=== PATIENT | male | born 1945 | race Caucasian/White ===

== ENCOUNTER → 2017-12-25 09:01 | Outpatient (CLI) | payer MEDICARE, OTHER, SELFPAY ==
[2017-12-25 09:43] LABS: White Blood Cell Count 5.6 X10^3/uL (4.5-11.0)
[2017-12-25 09:47] LABS: Mean Corpuscular HGB Conc 34.5 % (30-36); Mean Corpuscular Hemoglobin 30.4 PG (26-34); Mean Corpuscular Volume 88.3 fL (80-100); Red Blood Cell Count 3.62 X10^6/uL (4.5-5.9)
[2017-12-25 09:51] LABS: Platelet Count 1011 X10^3/uL (150-400)
[2017-12-25 09:56] LABS: Neutrophils Absolute Manual 3472 /uL (3000-5900); Platelet Estimate Increased on smear; Total Cells Counted 100
[2017-12-25 09:57] LABS: Morphology Comment Normal Morphology
[2017-12-25 09:58] LABS: Erythrocyte Sedimentation Rate 13 MM/HR (0-15)
[2017-12-25 10:05] LABS: C-Reactive Protein Quant < 0.5 mg/dL (<1.0)
== END ==
PROVIDERS: PCP Family Medicine; Visit Provider Family Medicine
DX: R59.1 Generalized enlarged lymph nodes (principal)
CPT/HCPCS: 36415; 85025; 85651; 86140

== ENCOUNTER → 2017-12-28 13:47 | Outpatient (CLI) | payer MEDICARE, OTHER, SELFPAY ==
[2017-12-28 14:47] LABS: Hematocrit 29.2 % (41-53); Hemoglobin 10.1 g/dL (13.5-17.5); Mean Corpuscular HGB Conc 34.5 % (30-36); Mean Corpuscular Hemoglobin 30.3 PG (26-34); Mean Corpuscular Volume 87.8 fL (80-100); Red Blood Cell Count 3.33 X10^6/uL (4.5-5.9); Red Cell Distribution Width 16.5 % (11.6-14.8); White Blood Cell Count 6.3 X10^3/uL (4.5-11.0)
[2017-12-28 14:51] LABS: Platelet Count 951 X10^3/uL (150-400)
[2017-12-28 15:22] LABS: Add Manual Diff / Slide Review YES
[2017-12-28 15:26] LABS: Anisocytosis 1+; Neutrophils Absolute Manual 3969 /uL (3000-5900); Total Cells Counted 100
[2017-12-28 15:27] LABS: Hypochromasia 1+
[2017-12-28 20:08] LABS: HEMOLYSIS < 15 (0-50); Iron 84 ug/dL (49-181)
[2017-12-28 20:18] LABS: Percent Iron Saturation 28 % (20-50); Total Iron Binding Capacity 295 ug/dL (261-462); Transferrin 219 mg/dL (206-381)
== END ==
PROVIDERS: PCP Family Medicine; Visit Provider Family Medicine
DX: D64.9 Anemia, unspecified (principal); R79.89 Other specified abnormal findings of blood chemistry; D47.3 Essential (hemorrhagic) thrombocythemia
CPT/HCPCS: 36415; 82728; 83540; 83550; 85025

== ENCOUNTER → 2018-01-07 13:15 | Outpatient (CLI) | payer MEDICARE, OTHER, SELFPAY | PROVIDERS: PCP Family Medicine; Visit Provider Family Medicine | DX: I20.8 Other forms of angina pectoris (principal) | CPT/HCPCS: 93016; 93017; 93018 ==

== ENCOUNTER → 2018-01-21 15:17 | Outpatient (CLI) | payer MEDICARE, OTHER, SELFPAY ==
[2018-01-21 16:12] LABS: Reticulocyte Count, Percent 1.2 % (0.87-2.60)
[2018-01-21 16:17] LABS: Add Manual Diff / Slide Review NO; Basophils Percent Auto 0.7 % (0-2); Eosinophils Percent Auto 4.3 % (2-4); Hematocrit 30.7 % (41-53); Hemoglobin 10.6 g/dL (13.5-17.5); Lymphocytes Percent Auto 18.1 % (25-40); Mean Corpuscular HGB Conc 34.5 % (30-36); Mean Corpuscular Hemoglobin 30.3 PG (26-34); Mean Corpuscular Volume 87.7 fL (80-100); Monocytes Percent Auto 7.2 % (3-14); Neutrophils Absolute Auto 5000 /uL (3000-5900); Neutrophils Percent Auto 69.7 % (50-75); Red Blood Cell Count 3.51 X10^6/uL (4.5-5.9); Red Cell Distribution Width 17.1 % (11.6-14.8); White Blood Cell Count 7.2 X10^3/uL (4.5-11.0)
[2018-01-21 16:38] LABS: Platelet Count 928 X10^3/uL (150-400)
[2018-01-21 16:40] LABS: Anisocytosis 2+
[2018-01-21 16:54] LABS: HEMOLYSIS < 15 (0-50); Iron 83 ug/dL (49-181)
[2018-01-21 16:56] LABS: Alanine Aminotransferase 35 IU/L (21-72); Albumin 4.6 g/dL (3.5-5.0); Albumin Globulin Ratio 1.6 (1.0-2.8); Alkaline Phosphatase 48 U/L (38-126); Aspartate Aminotransferase 39 IU/L (17-59); Bilirubin Total 0.4 mg/dL (0.2-1.3); Blood Urea Nitrogen 22 mg/dL (9-20); Calcium 9.3 mg/dL (8.4-10.2); Carbon Dioxide 27 mmol/L (22-32); Chloride 104 mmol/L (98-107); Estimated Glomerular Filt Rate > 60.0 mL/min (>60); Globulin 2.8 g/dL (1.7-4.1); Glucose 129 mg/dL (80-110); HEMOLYSIS < 15 (0-50); Lactate Dehydrogenase 747 U/L (313-618); Potassium 4.1 mmol/L (3.4-5.1); Sodium 142 mmol/L (137-145); Total Protein 7.4 g/dL (6.3-8.2)
[2018-01-21 17:05] LABS: Percent Iron Saturation 27 % (20-50); Total Iron Binding Capacity 308 ug/dL (261-462); Transferrin 230 mg/dL (206-381)
[2018-01-23 15:37] LABS: Free Kappa Light Chain 25.1 mg/L (3.3-19.4); Free Lambda 14.7 mg/L (5.7-26.3)
[2018-01-26 15:42] LABS: Clinical Indication Blood; JAK2 V617F DETECTED (NOT DETECTED)
[2018-01-29 16:22] LABS: Albumin 4.2 g/dL (3.8-4.8); Alpha 1 Globulin 0.2 g/dL (0.2-0.3); Alpha 2 Globulin 0.6 g/dL (0.5-0.9); Beta 1 Globulin 0.4 g/dL (0.4-0.6); Protein, Total 6.7 g/dL (6.1-8.1)
== END ==
PROVIDERS: PCP Family Medicine; Visit Provider Internal Medicine Hematology & Oncology
DX: D47.3 Essential (hemorrhagic) thrombocythemia (principal); D64.9 Anemia, unspecified
CPT/HCPCS: 36415; 80053; 81270; 82728; 82784; 83540; 83550; 83615; 83883; 84155; 84165; 85025; 85045; 86334

== ENCOUNTER → 2018-03-04 09:55 | Outpatient (CLI) | payer MEDICARE, OTHER, SELFPAY ==
[2018-03-04 10:24] LABS: Add Manual Diff / Slide Review NO; Basophils Percent Auto 0.7 % (0-2); Eosinophils Percent Auto 5.5 % (2-4); Hematocrit 31.8 % (41-53); Lymphocytes Percent Auto 17.4 % (25-40); Mean Corpuscular HGB Conc 34.5 % (30-36); Mean Corpuscular Hemoglobin 30.5 PG (26-34); Mean Corpuscular Volume 88.4 fL (80-100); Monocytes Percent Auto 7.5 % (3-14); Neutrophils Absolute Auto 4900 /uL (3000-5900); Neutrophils Percent Auto 68.9 % (50-75); Red Cell Distribution Width 17.8 % (11.6-14.8); White Blood Cell Count 7.2 X10^3/uL (4.5-11.0)
[2018-03-04 10:26] LABS: Alanine Aminotransferase 31 IU/L (21-72); Albumin 4.3 g/dL (3.5-5.0); Albumin Globulin Ratio 1.5 (1.0-2.8); Alkaline Phosphatase 46 U/L (38-126); Aspartate Aminotransferase 35 IU/L (17-59); BUN Creatinine Ratio 20.8 (6-22); Bilirubin Total 0.5 mg/dL (0.2-1.3); Blood Urea Nitrogen 25 mg/dL (9-20); Calcium 8.8 mg/dL (8.4-10.2); Carbon Dioxide 28 mmol/L (22-32); Chloride 107 mmol/L (98-107); Estimated Glomerular Filt Rate 59.9 mL/min (>60); Globulin 2.8 g/dL (1.7-4.1); Glucose 116 mg/dL (80-110); HEMOLYSIS < 15 (0-50); Lactate Dehydrogenase 624 U/L (313-618); Potassium 4.5 mmol/L (3.4-5.1); Sodium 145 mmol/L (137-145); Total Protein 7.1 g/dL (6.3-8.2)
[2018-03-04 11:00] LABS: Platelet Count 1216 X10^3/uL (150-400)
[2018-03-04 11:06] LABS: Anisocytosis 1+; Platelet Estimate Increased on smear
--- NOTE | 2018-03-04 11:27 | PC.NURSE ---
received a critical value on pts platelets of 1216. Pt last seen in the clinic where platelet count was in the 900's and given information on hydrea. Pt was schd for 4 weeks out, but due to the rise in his platelets pt will be seen by Dr Barth today
[2018-03-15 15:23] LABS: Miscellaneous to LabCorp SEE SEPERATE REPORT
== END ==
PROVIDERS: PCP Family Medicine
DX: D47.3 Essential (hemorrhagic) thrombocythemia (principal)
CPT/HCPCS: 36415; 80053; 83615; 85025

== ENCOUNTER → 2018-03-11 09:18 | Outpatient (CLI) | payer MEDICARE, OTHER, SELFPAY ==
[2018-03-11 09:42] LABS: Alanine Aminotransferase 26 IU/L (21-72); Albumin 4.5 g/dL (3.5-5.0); Albumin Globulin Ratio 1.6 (1.0-2.8); Alkaline Phosphatase 47 U/L (38-126); Aspartate Aminotransferase 32 IU/L (17-59); Bilirubin Total 0.4 mg/dL (0.2-1.3); Blood Urea Nitrogen 19 mg/dL (9-20); Calcium 8.9 mg/dL (8.4-10.2); Carbon Dioxide 28 mmol/L (22-32); Chloride 105 mmol/L (98-107); Estimated Glomerular Filt Rate > 60.0 mL/min (>60); Globulin 2.8 g/dL (1.7-4.1); Glucose 107 mg/dL (80-110); HEMOLYSIS < 15 (0-50); Potassium 4.7 mmol/L (3.4-5.1); Sodium 143 mmol/L (137-145); Total Protein 7.3 g/dL (6.3-8.2)
[2018-03-11 09:43] LABS: Hematocrit 31.7 % (41-53); Mean Corpuscular HGB Conc 34.8 % (30-36); Mean Corpuscular Hemoglobin 30.7 PG (26-34); Mean Corpuscular Volume 88.2 fL (80-100); Red Blood Cell Count 3.59 X10^6/uL (4.5-5.9); Red Cell Distribution Width 17.2 % (11.6-14.8); White Blood Cell Count 6.1 X10^3/uL (4.5-11.0)
[2018-03-11 09:45] LABS: Add Manual Diff / Slide Review SLIDE REVIEW
[2018-03-11 10:18] LABS: Anisocytosis 1+; Hypochromasia 1+; Platelet Estimate Increased on smear; Poikilocytosis 1+
[2018-03-11 10:20] LABS: Platelet Count 1115 X10^3/uL (150-400)
--- NOTE | 2018-03-11 11:01 | PC.NURSE ---
Addendum entered by Vince Gonzalez R.N. 03/15/18 08:59: Per Dr Barth, No changes to hydrea now Original Note: Pt here for weekly labs. Platelet count is being watched closely as he showed a consistent increase leading to an appt with Dr Barth. Pt started on Hydrea with todays platelet count down to 1,115. Results to MD for any further orders.
--- NOTE | 2018-03-11 16:38 | PC.NURSE ---
AT 1200 PATIENT BP ELEVATED TO 190/100. PATIENT HAD HAD PARKINSON TREMORS DURING BP MEASURE, OTHERWISE HE STATES NO SYMPTOMS, NO HEADACHE OR VISION PROBLEMS. 5 MINUTES POST BP AT 169/90. INFUSION LEFT AT 100 FOR ANOTHER 15 MINUTES, BP THEN 160/85 AND INFUSION INCREASED PER PROTOCOL.
== END ==
PROVIDERS: PCP Family Medicine; Visit Provider Internal Medicine Hematology & Oncology
DX: D47.3 Essential (hemorrhagic) thrombocythemia (principal)
CPT/HCPCS: 36415; 80053; 85025

== ENCOUNTER → 2018-03-18 09:20 | Outpatient (CLI) | payer MEDICARE, OTHER, SELFPAY ==
[2018-03-18 09:46] LABS: Add Manual Diff / Slide Review NO; Eosinophils Percent Auto 2.4 % (2-4); Hematocrit 32.4 % (41-53); Hemoglobin 11.1 g/dL (13.5-17.5); Lymphocytes Percent Auto 19.5 % (25-40); Mean Corpuscular HGB Conc 34.3 % (30-36); Mean Corpuscular Hemoglobin 30.2 PG (26-34); Mean Corpuscular Volume 88.1 fL (80-100); Monocytes Percent Auto 8.9 % (3-14); Neutrophils Absolute Auto 3600 /uL (3000-5900); Neutrophils Percent Auto 68.2 % (50-75); Platelet Count 861 X10^3/uL (150-400); Red Blood Cell Count 3.68 X10^6/uL (4.5-5.9); Red Cell Distribution Width 17.9 % (11.6-14.8); White Blood Cell Count 5.3 X10^3/uL (4.5-11.0)
[2018-03-18 10:00] LABS: Alanine Aminotransferase 40 IU/L (21-72); Albumin 4.6 g/dL (3.5-5.0); Albumin Globulin Ratio 1.5 (1.0-2.8); Alkaline Phosphatase 46 U/L (38-126); Aspartate Aminotransferase 40 IU/L (17-59); BUN Creatinine Ratio 22.7 (6-22); Bilirubin Total 0.6 mg/dL (0.2-1.3); Blood Urea Nitrogen 25 mg/dL (9-20); Calcium 9.3 mg/dL (8.4-10.2); Carbon Dioxide 30 mmol/L (22-32); Chloride 104 mmol/L (98-107); Estimated Glomerular Filt Rate > 60.0 mL/min (>60); Glucose 86 mg/dL (80-110); HEMOLYSIS < 15 (0-50); Sodium 146 mmol/L (137-145); Total Protein 7.6 g/dL (6.3-8.2)
== END ==
PROVIDERS: PCP Family Medicine; Visit Provider Internal Medicine Hematology & Oncology
DX: D47.3 Essential (hemorrhagic) thrombocythemia (principal); D64.9 Anemia, unspecified
CPT/HCPCS: 36415; 80053; 85025

== ENCOUNTER → 2018-06-10 09:49 | Outpatient (CLI) | payer MEDICARE, OTHER, SELFPAY ==
[2018-06-10 10:00] LABS: Add Manual Diff / Slide Review NO; Basophils Percent Auto 0.8 % (0-2); Eosinophils Percent Auto 1.2 % (2-4); Hematocrit 35.1 % (41-53); Hemoglobin 11.8 g/dL (13.5-17.5); Lymphocytes Percent Auto 20.4 % (25-40); Mean Corpuscular HGB Conc 33.6 % (30-36); Mean Corpuscular Hemoglobin 35.2 PG (26-34); Mean Corpuscular Volume 104.9 fL (80-100); Monocytes Percent Auto 6.7 % (3-14); Neutrophils Absolute Auto 3100 /uL (1500-7000); Neutrophils Percent Auto 70.9 % (50-75); Platelet Count 457 X10^3/uL (150-400); Red Blood Cell Count 3.35 X10^6/uL (4.5-5.9); White Blood Cell Count 4.3 X10^3/uL (4.5-11.0)
[2018-06-10 10:24] LABS: Anisocytosis 3+; Poikilocytosis 1+
== END ==
PROVIDERS: PCP Family Medicine; Visit Provider Nurse Practitioner Gerontology
DX: D47.3 Essential (hemorrhagic) thrombocythemia (principal); D64.9 Anemia, unspecified
CPT/HCPCS: 36415; 85025

== ENCOUNTER → 2018-09-10 10:10 | Outpatient (CLI) | payer MEDICARE, OTHER, SELFPAY ==
[2018-09-10 10:49] LABS: Add Manual Diff / Slide Review NO; Basophils Absolute Auto 0 /uL (0-100); Basophils Percent Auto 0.4 % (0-2); Eosinophils Absolute Auto 300 /uL (0-450); Eosinophils Percent Auto 4.3 % (2-4); Hematocrit 34.2 % (41-53); Hemoglobin 11.5 g/dL (13.5-17.5); Lymphocytes Absolute Auto 1000 /uL (1100-4500); Lymphocytes Percent Auto 13.4 % (25-40); Mean Corpuscular HGB Conc 33.7 % (30-36); Mean Corpuscular Hemoglobin 39.6 PG (26-34); Mean Corpuscular Volume 117.6 fL (80-100); Monocytes Absolute Auto 400 /uL (0-900); Monocytes Percent Auto 5.3 % (3-14); Neutrophils Absolute Auto 5800 /uL (1500-7000); Neutrophils Percent Auto 76.6 % (50-75); Platelet Count 501 X10^3/uL (150-400); Red Blood Cell Count 2.91 X10^6/uL (4.5-5.9); Red Cell Distribution Width 16.2 % (11.6-14.8); White Blood Cell Count 7.5 X10^3/uL (4.5-11.0)
[2018-09-10 11:21] LABS: Macrocytosis 2+
[2018-09-10 12:40] LABS: Alanine Aminotransferase 31 IU/L (21-72); Albumin 4.4 g/dL (3.5-5.0); Albumin Globulin Ratio 1.4 (1.0-2.8); Alkaline Phosphatase 56 U/L (38-126); Aspartate Aminotransferase 36 IU/L (17-59); BUN Creatinine Ratio 19.1 (6-22); Bilirubin Total 0.4 mg/dL (0.2-1.3); Blood Urea Nitrogen 21 mg/dL (9-20); Carbon Dioxide 25 mmol/L (22-32); Chloride 104 mmol/L (98-107); Estimated Glomerular Filt Rate > 60.0 mL/min (>60); Globulin 3.1 g/dL (1.7-4.1); Glucose 97 mg/dL (80-110); HEMOLYSIS < 15 (0-50); Potassium 4.7 mmol/L (3.4-5.1); Sodium 139 mmol/L (137-145); Total Protein 7.5 g/dL (6.3-8.2)
== END ==
PROVIDERS: PCP Family Medicine; Visit Provider Internal Medicine Hematology & Oncology
DX: I10 Essential (primary) hypertension (principal)
CPT/HCPCS: 36415; 80053; 85025

== ENCOUNTER → 2018-09-14 06:39 | Outpatient (CLI) | payer MEDICARE, OTHER, SELFPAY ==
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
== END ==
PROVIDERS: PCP Family Medicine; Visit Provider Nurse Practitioner
DX: M79.604 Pain in right leg (principal); S76.811A Strain of other specified muscles, fascia and tendons at thigh level, right thigh, initial encounter; V89.2XXA Person injured in unspecified motor-vehicle accident, traffic, initial encounter
CPT/HCPCS: 73718

== ENCOUNTER → 2019-06-08 09:31 | Outpatient (CLI) | payer MEDICARE, OTHER, SELFPAY ==
[2019-06-08 09:56] LABS: Hematocrit 23.2 % (41-53); Hemoglobin 7.7 g/dL (13.5-17.5); Mean Corpuscular HGB Conc 33.2 % (30-36); Mean Corpuscular Hemoglobin 36.8 PG (26-34); Mean Corpuscular Volume 110.8 fL (80-100); Platelet Count 173 X10^3/uL (150-400); Red Blood Cell Count 2.09 X10^6/uL (4.5-5.9); Red Cell Distribution Width 16.6 % (11.6-14.8); White Blood Cell Count 5.7 X10^3/uL (4.5-11.0)
[2019-06-08 09:57] LABS: Add Manual Diff / Slide Review YES
[2019-06-08 10:10] LABS: Alanine Aminotransferase 19 IU/L (<50); Albumin 4.4 g/dL (3.5-5.0); Albumin Globulin Ratio 1.5 (1.0-2.8); Alkaline Phosphatase 57 U/L (38-126); Aspartate Aminotransferase 29 IU/L (17-59); BUN Creatinine Ratio 16.7 (6-22); Bilirubin Total 0.5 mg/dL (0.2-1.3); Blood Urea Nitrogen 20 mg/dL (9-20); Calcium 8.7 mg/dL (8.4-10.2); Carbon Dioxide 26 mmol/L (22-32); Chloride 107 mmol/L (98-107); Estimated Glomerular Filt Rate 59.5 mL/min (>60); Globulin 2.9 g/dL (1.7-4.1); Glucose 116 mg/dL (80-110); HEMOLYSIS < 15 (0-50); Potassium 4.5 mmol/L (3.4-5.1); Sodium 143 mmol/L (137-145); Total Protein 7.3 g/dL (6.3-8.2)
[2019-06-08 10:59] LABS: Neutrophils Absolute Manual 2508 /uL (3000-5900); Nucleated Red Blood Cells 1 #/Diff; Total Cells Counted 100
[2019-06-08 11:00] LABS: Hypochromasia 2+; Macrocytosis 2+; Polychromasia 1+; Tear Drop Cells 1+
== END ==
PROVIDERS: PCP Family Medicine; Visit Provider Internal Medicine Hematology & Oncology
DX: D47.3 Essential (hemorrhagic) thrombocythemia (principal)
CPT/HCPCS: 36415; 80053; 85025

== ENCOUNTER → 2019-07-11 08:54 | Outpatient (CLI) | payer MEDICARE, OTHER, SELFPAY ==
[2019-07-11 10:09] LABS: Prothrombin Time 23.5 SECONDS (10.1-12.7)
[2019-07-11 10:14] LABS: Hematocrit 23.4 % (41-53); Hemoglobin 7.8 g/dL (13.5-17.5); Mean Corpuscular HGB Conc 33.2 % (30-36); Mean Corpuscular Hemoglobin 33.6 PG (26-34); Mean Corpuscular Volume 101.3 fL (80-100); Platelet Count 249 X10^3/uL (150-400); Red Blood Cell Count 2.31 X10^6/uL (4.5-5.9); Red Cell Distribution Width 22.6 % (11.6-14.8); White Blood Cell Count 22.3 X10^3/uL (4.5-11.0)
[2019-07-11 10:15] LABS: Add Manual Diff / Slide Review YES
[2019-07-11 10:17] LABS: Alanine Aminotransferase 26 IU/L (<50); Albumin 4.9 g/dL (3.5-5.0); Albumin Globulin Ratio 1.4 (1.0-2.8); Alkaline Phosphatase 59 U/L (38-126); Aspartate Aminotransferase 33 IU/L (17-59); BUN Creatinine Ratio 18.5 (6-22); Bilirubin Total 0.5 mg/dL (0.2-1.3); Blood Urea Nitrogen 24 mg/dL (9-20); Calcium 9.1 mg/dL (8.4-10.2); Carbon Dioxide 26 mmol/L (22-32); Chloride 106 mmol/L (98-107); Estimated Glomerular Filt Rate 54.3 mL/min (>60); Globulin 3.6 g/dL (1.7-4.1); Glucose 92 mg/dL (80-110); HEMOLYSIS < 15 (0-50); Potassium 4.5 mmol/L (3.4-5.1); Sodium 141 mmol/L (137-145); Total Protein 8.5 g/dL (6.3-8.2)
[2019-07-11 10:33] LABS: HEMOLYSIS < 15 (0-50); Iron 171 ug/dL (49-181)
[2019-07-11 10:42] LABS: Anisocytosis 2+; Neutrophils Absolute Manual 11373 /uL (3000-5900); Nucleated Red Blood Cells 1 #/Diff; Poikilocytosis 1+; Total Cells Counted 100
[2019-07-11 10:43] LABS: Percent Iron Saturation 53 % (20-50); Polychromasia 1+; Total Iron Binding Capacity 321 ug/dL (261-462); Transferrin 232 mg/dL (206-381)
[2019-07-11 11:21] LABS: Folate 11.1 ng/mL (2.76-20.0); Vitamin B12 872 pg/mL (239-931)
== END ==
PROVIDERS: Internal Medicine Hematology & Oncology; PCP Family Medicine; Visit Provider Family Medicine
DX: D47.3 Essential (hemorrhagic) thrombocythemia (principal); I26.99 Other pulmonary embolism without acute cor pulmonale; Z79.01 Long term (current) use of anticoagulants
CPT/HCPCS: 36415; 80053; 82607; 82728; 82746; 83540; 83550; 85025; 85610

== ENCOUNTER → 2019-07-18 09:30 | Outpatient (CLI) | payer MEDICARE, OTHER, SELFPAY ==
[2019-07-18 10:00] LABS: Hematocrit 21.8 % (41-53); Hemoglobin 7.1 g/dL (13.5-17.5); Mean Corpuscular HGB Conc 32.5 % (30-36); Mean Corpuscular Hemoglobin 32.9 PG (26-34); Mean Corpuscular Volume 101.2 fL (80-100); Platelet Count 201 X10^3/uL (150-400); Red Blood Cell Count 2.15 X10^6/uL (4.5-5.9); Red Cell Distribution Width 22.6 % (11.6-14.8); White Blood Cell Count 16.1 X10^3/uL (4.5-11.0)
[2019-07-18 10:10] LABS: Alanine Aminotransferase 28 IU/L (<50); Albumin 4.5 g/dL (3.5-5.0); Albumin Globulin Ratio 1.3 (1.0-2.8); Alkaline Phosphatase 58 U/L (38-126); Aspartate Aminotransferase 34 IU/L (17-59); BUN Creatinine Ratio 16.2 (6-22); Bilirubin Total 0.6 mg/dL (0.2-1.3); Blood Urea Nitrogen 21 mg/dL (9-20); Carbon Dioxide 24 mmol/L (22-32); Chloride 107 mmol/L (98-107); Estimated Glomerular Filt Rate 54.3 mL/min (>60); Globulin 3.6 g/dL (1.7-4.1); Glucose 103 mg/dL (80-110); HEMOLYSIS < 15 (0-50); Potassium 4.4 mmol/L (3.4-5.1); Sodium 141 mmol/L (137-145); Total Protein 8.1 g/dL (6.3-8.2)
[2019-07-18 10:17] LABS: Add Manual Diff / Slide Review YES
[2019-07-18 10:45] LABS: Neutrophils Absolute Manual 9821 /uL (3000-5900); Nucleated Red Blood Cells 1 #/Diff; Total Cells Counted 100
[2019-07-18 10:46] LABS: Anisocytosis 2+
== END ==
PROVIDERS: Internal Medicine Hematology & Oncology; PCP Family Medicine; Visit Provider Family Medicine
DX: D47.3 Essential (hemorrhagic) thrombocythemia (principal)
CPT/HCPCS: 36415; 80053; 85025

== ENCOUNTER → 2019-08-25 10:23 | Outpatient (CLI) | payer MEDICARE, OTHER, SELFPAY ==
--- NOTE | 2019-08-25 10:26 | DI.US.S_ITS ---
PROCEDURE: US ABDOMEN LIMITED INDICATIONS: MYELOFIBROSIS.EVALUATE FOR HEPATOSPLENOMEGALY TECHNIQUE: Real-time focused scanning was performed of the abdomen, with image documentation. COMPARISON: [facility], CT, CT ABDOMEN PELVIS WITH CONTRAST, 02/09/2018, 11:14. FINDINGS: Liver is grossly normal in size measures approximately 14.0 cm in length. 2 hepatic cysts are noted within the left lobe measuring 1.0 x 0.7 x 0.8 cm, and 0.6 x 1.0 x 1.1 cm. Status post cholecystectomy No intra-or extrahepatic bile duct dilatation. Pancreas is sonographically unremarkable. There is splenomegaly. The spleen measures 13.7 x 7.3 cm. IMPRESSION: Splenomegaly. Normal size of the liver Dictated by: Dima Dinh M.D. on 08/25/2019 at 14:24 Approved by: Dima Dinh M.D. on 08/25/2019 at 14:27
== END ==
PROVIDERS: PCP Family Medicine; Referring Provider Internal Medicine Hematology & Oncology; Visit Provider Internal Medicine Hematology & Oncology
DX: D47.3 Essential (hemorrhagic) thrombocythemia; D75.81 Myelofibrosis; R16.1 Splenomegaly, not elsewhere classified
CPT/HCPCS: 76705

== ENCOUNTER → 2019-08-29 09:27 | Outpatient (CLI) | payer MEDICARE, OTHER, SELFPAY ==
[2019-08-29 09:52] LABS: Hematocrit 23.5 % (41-53); Hemoglobin 7.7 g/dL (13.5-17.5); Mean Corpuscular HGB Conc 32.6 % (30-36); Mean Corpuscular Hemoglobin 31.6 PG (26-34); Mean Corpuscular Volume 96.9 fL (80-100); Platelet Count 141 X10^3/uL (150-400); Red Blood Cell Count 2.42 X10^6/uL (4.5-5.9); Red Cell Distribution Width 21.9 % (11.6-14.8); White Blood Cell Count 28.4 X10^3/uL (4.5-11.0)
[2019-08-29 09:54] LABS: Add Manual Diff / Slide Review YES
[2019-08-29 10:31] LABS: Anisocytosis 2+; Neutrophils Absolute Manual 15052 /uL (3000-5900); Tear Drop Cells 1+; Total Cells Counted 100
== END ==
PROVIDERS: PCP Family Medicine; Referring Provider Internal Medicine Hematology & Oncology; Visit Provider Internal Medicine Hematology & Oncology
DX: D47.3 Essential (hemorrhagic) thrombocythemia (principal); D64.9 Anemia, unspecified; D75.81 Myelofibrosis
CPT/HCPCS: 36415; 85025

== ENCOUNTER → 2019-10-27 09:00 | Oncology outpatient (ONC) | payer MEDICARE, OTHER, SELFPAY ==
[2018-01-20 14:37] VITALS: BP 141/77; PULSE 66; RESP 16; TEMP 37; O2SAT 99
--- NOTE | 2018-01-20 14:56 | P.CONONC_ITS ---
History of Present Illness - Data of Consult Primary Care Provider: Mamta Gould MD - Consult Narrative Narrative: Eddie Chávez is a 72 year old male CC: Esteban Solomon MD HEMATOLOGY/ONCOLOGY CONSULTATION NOTE DATE OF SERVICE: JANUARY 20, 2018 PATIENT NAME: EDDIE CHÁVEZ DATE OF : 1945 REFERRING PHYSICIAN: DELONTE GOULD MD REASON FOR CONSULTATION: Anemia and thrombocytosis. HISTORY OF PRESENT ILLNESS: This is a 72-year-old gentleman who is referred by Dr. Gould for evaluation and management of anemia and thrombocytosis. He presents today accompanied by his , Jerica. Born in [place], [place] and has lived most of his life in [facility]. Recent clinic visit on December 25, 2017 for swollen lymph nodes in his groin. Examination at that time reports small, bilateral inguinal lymph nodes ranging approximately 0.5 cm. He was sent for lab work that day which shows WBC 5600, ANC 3472, hemoglobin 11.0, hematocrit 32.0, MCV 88.3, platelet count 1,011,000. Sedimentation rate 13, CRP less than 0.5. BUN 21, creatinine 1.10, calcium 9.2, glucose 88, B12 717, sodium 144, potassium 5.3, chloride 104, CO2 29. Recently saw Dr. Grace in Orthopedics to evaluate burning, neuropathic pain in his feet. He had some imaging as well as nerve conduction studies though I do not have the records today. He was referred to Dr. Jones and on January 19, 2018 underwent colonoscopy with findings of 4 reportedly benign polyps. Also EGD. I do not have the reports available to review but very tells me the findings were generally okay. He was also referred to Cardiology for possible coronary angiography. He denies any evident bleeding, no melena or hematochezia. He took oral iron for about 3 days, stopping at his colonoscopy. He has no previous history of cancer and has not received chemotherapy or radiation treatment in the past. No history of anemia or other hematologic disorder. He denies recent fever, night sweats or unexplained weight loss. He has felt warmer at night over the past month or two, nonspecific. No significant rash, joint swelling, bruising, bleeding, headaches or new neurologic symptoms. He has noted the burning discomfort in his feet for about 4-5 months. No reported history of diabetes. Previously consumed beer but none since about age 34. Also former smoker but quit at age 30. He denies any recent abdominal discomfort, bloating, distention or early satiety. No bone pain. No cough or dyspnea. Home Medications and Allergies Home Medications Medication Instructions Recorded Confirmed Type pediatric [id number]-[id number] 1 tab PO DAILY 01/20/18 01/20/18 History [Multi-Vitamins with Iron] Allergies Allergy/AdvReac Type Severity Reaction Status Date / Time No Known Drug Allergies Allergy Verified 01/20/18 14:39 Medical History - Medical, Surgical, Family History Medical History: Medical History (Last Updated 12/18/17 @ 16:03 by Michell Mueller) Osteoarthritis Seborrheic dermatitis CTS (carpal tunnel syndrome) Surgical History: Surgical History (Last Updated 12/18/17 @ 16:05 by Michell Mueller) Anesthesia History of carpal tunnel release Onset Date: ~1989 History of cholecystectomy Onset Date: ~2014 History of partial knee replacement Onset Date: ~2001 Status post rotator cuff repair Family History: Family History Father Lung cancer Mother Congestive heart failure Heart disease - Social History Smoking Status: Former smoker Review of Systems - Patient Self-Reported Symptoms SR ears, nose, mouth, throat issues: Ears ringing, Difficulty swallowing SR Cardiovascular issues: Chest pain, discomfort, tightness SR Genitourinary issues: Change in stream SR Hematologic issues: Swollen lymph nodes Constitutional: able to conduct usual activities, normal sleep, no weight loss, no poor state of general health Eyes: no change in vision, no double vision Ears, nose, mouth, throat: no headaches, no lightheadedness, no epistaxis, no gingival bleeding, no sore throat Cardiovascular: no chest pain, no palpitations, no syncope, no dyspnea on exertion, no orthopnea, no edema, no cyanosis, no heart murmur Respiratory: no pain with respirations, no shortness of breath, no wheezing, no exercise intolerance, no cough, no sputum production, no hemoptysis, no respiratory infections, no night sweats Gastrointestinal: no change in appetite, no dysphagia, no indigestion, no abdominal pain, no nausea, no hematemesis, no jaundice, no abnormal stools Genitourinary: no urgency, no frequency, no dysuria, no hematuria Musculoskeletal: no pain, no swelling, no limited ROM, no weakness, no cramps Integumentary: no rash, no bleeding or bruising, no itching, no abnormal hair loss, no nails brittleness Neurological: no seizures, no tremor, no paresthesias, no memory loss, no motor difficulty Psychiatric: no attentional problems, no mood disturbance, no depression Hematologic/Lymphatic: anemia, enlarged lymph nodes Exam Vital signs: Last Vital Signs Temp 98.6 F 01/20/18 14:37 Pulse 66 01/20/18 14:37 Resp 16 01/20/18 14:37 BP 141/77 H 01/20/18 14:37 Pulse Ox 99 01/20/18 14:37 - Constitutional positive no acute distress, positive thin, positive cooperative - Routine HEENT Exam Head: Present: normocephalic, atraumatic. Absent: cushingoid faces, facial swelling Eye: Present: EOMI, PERRL. Absent: conjunctival icterus, scleral injection, periorbital ecchymosis, periorbital swelling ENT: Present: mucous membranes moist, oropharynx clear - Routine Neck Exam Present: supple. Absent: JVD, lymphadenopathy - Routine Chest/Breast/Axilla Exam Axillae: Absent: lymphadenopathy, tenderness - Routine Respiratory Exam Present: Clear to auscultation bilaterally. Absent: accessory muscle use, rales , rhonchi, wheezes - Routine Cardiovascular Exam Present: RRR, S1, S2. Absent: murmur, S3 - Routine Abdominal Exam Present: soft. Absent: normoactive bowel sounds, tenderness, distended, organomegaly Palpation/Percussion: Absent: hepatomegaly, splenomegaly - Routine Extremities Exam Present: pulses intact. Absent: cyanosis, clubbing, edema, calf tenderness, joint swelling - Routine Back/Spine Exam Back/Spine: Present: full ROM. Absent: paraspinal tenderness, vertebral tenderness - Routine Skin Exam Present: intact. Absent: cyanosis, erythema, petechiae, jaundice, rash, ecchymosis - Routine Neurological Exam Present: alert, oriented X3, moving all extremities, normal speech. Absent: altered mental status - Routine Psychiatric Exam Present: normal affect, normal thought process, cooperative, good judgment Assessment and Plan - Time Spent with Patient IMPRESSION: 1. Thrombocytosis. Differential includes primary versus secondary thrombocythemia. 2. Anemia, normocytic. 3. Peripheral neuropathy. 4. Presumed atherosclerotic cardiovascular disease. 5. Former smoker, quit at age 30 with less than 20 pack year history. 6. Osteoarthritis. I reviewed his recent lab results and the clinical questions with him and his for today's visit. Reviewed his questions and concerns. At this time it is unclear whether this represents primary versus secondary thrombocytosis. Coincident anemia raises question of a secondary cause though not definitive. Thrombocytosis may be seen in the setting of iron deficiency however he does not show microcytosis and recent MCV was normal at 88. We do not have any previous CBC results for comparison and cannot therefore determine the chronicity of the current findings. He does have small, shotty inguinal nodes, right greater than left though not currently pathologically enlarged and likely unrelated to the issue at hand. No additional palpable lymphadenopathy, splenomegaly or other findings on examination today. There is evidence of vascular disease with hair loss on his lower extremities and other changes consistent with arterial insufficiency. Etiology for his neuropathy may include peripheral vascular disease, previous alcohol consumption or other. Recent B12 was normal. I reviewed the findings and potential concerns regarding primary thrombocythemia and other myeloproliferative disorders. Discussed the increased risk for thromboembolic complications including stroke. I would recommend initial lab work and we will see him back to review these results. Further diagnostic workup including imaging and possible bone marrow aspirate and biopsy pending results. He voices understanding and agreement with the plan. He will follow up with other providers as scheduled. PLAN: 1. CBC, retic count, peripheral smear evaluation, CMP, LDH, iron/TIBC, ferritin , SPEP with immunofixation and serum free light chains. 2. JAK2 mutation assay. 3. Return appointment 1 week to review results. 4. Follow up with other providers as planned. 5. Consider bone marrow aspirate and biopsy if indicated. 6. Diagnostic imaging pending above results. DICTATED BY ESTEBAN SOLOMON MD MEDICAL ONCOLOGY AND HEMATOLOGY
[2018-01-27 09:38] VITALS: BP 141/77; PULSE 60; RESP 15; TEMP 36.6; O2SAT 100
--- NOTE | 2018-01-27 10:15 | P.PNONC_ITS ---
Assessment and Plan - Time Spent with Patient IMPRESSION: 1. Thrombocytosis, JAK2 mutation positive. 2. Anemia, normocytic. 3. Peripheral neuropathy. 4. Former smoker, 20 pack year history and quit at age 30. 5. Presumed ASCVD. 6. Osteoarthritis. I reviewed the lab results with him and his at today's visit. Results from January 21, 2018 showed platelet count 928,000, WBC 7200, hemoglobin 10.6, hematocrit 30.7, MCV 87.7, ANC 5000. Retic count 1.2%, creatinine 1.0, LDH 747 , iron 83, TIBC 308, saturation 27%, transferrin 230. Serum free light chains kappa 25.1, lambda of 14.7 with ratio 1.70. JAK2 V617F mutation positive. SPEP with immunofixation pending. I reviewed the results with him and his . Will need to check BCR/ABL, though no splenomegaly on examination or other specific findings beyond those noted. I reviewed the indications for treatment and would recommend he start daily aspirin. Based on his age >60 years and the presence of JAK2 mutation he would fall into the high risk group even without a personal history of thromboembolus. I reviewed the risk for stroke or other blood clot and the indications for cytoreductive therapy with hydroxyurea. Based on these findings, I would recommend he start hydroxyurea at 500 mg daily. Given his anemia would consider starting at every other day or for the 1st month and check counts to see how he tolerates with further adjustment based on counts. I provided him printed information on hydroxyurea today and he will read this and call back next week. We will schedule him with a new provider in 1 month with labs prior to the visit. I encouraged him to call with any questions or new concerns. PLAN: 1. Daily aspirin 81 mg. 2. Information in teaching for hydroxyurea. He will call back when he reaches a decision regarding treatment. 3. Monitor for new symptoms and call back as needed. 4. PCR for BCR/ABL on peripheral blood. 5. Return appointment here in 4 weeks. 6. CBC, CMP, LDH prior to the visit. DICTATED BY COLEMAN SOLOMON MD MEDICAL ONCOLOGY AND HEMATOLOGY PN -Subjective Interval history: IDENTIFICATION: This is a 72-year-old gentleman seen in consultation for thrombocytosis and anemia who returns in follow-up to review lab results. INTERVAL HISTORY: He returns today with his to review initial lab results. He is feeling fine and has no new symptoms to report. He denies any vasomotor symptoms including fever, night sweats, hot flashes, flushing. No discoloration of the hands or feet. Appetite and energy level stable. No bleeding, bruising, abdominal discomfort or early satiety. No symptoms to suggest TIA or stroke. - Patient Self-Reported Symptoms SR ears, nose, mouth, throat issues: Swollen glands SR Cardiovascular issues: Chest pain, discomfort, tightness SR Genitourinary issues: Change in stream SR Hematologic issues: Swollen lymph nodes Home Medications and Allergies Home Medications Medication Instructions Recorded Confirmed Type pediatric nswunwho-odpy-[id number] 1 tab PO DAILY 01/20/18 01/20/18 History [Multi-Vitamins with Iron] Allergies Allergy/AdvReac Type Severity Reaction Status Date / Time No Known Drug Allergies Allergy Verified 01/20/18 14:39 Exam Vital signs: Last Vital Signs Temp 97.8 F 01/27/18 09:38 Pulse 60 01/27/18 09:38 Resp 15 01/27/18 09:38 BP 141/77 H 01/27/18 09:38 Pulse Ox 100 01/27/18 09:38
--- NOTE | 2018-03-01 13:12 | ONC.SCHED ---
CODE CORRECT BCR/ABL PASSES WITH [id number] FOR CODES [id number] NO LCD EDITS
[2018-03-04 16:06] VITALS: BP 126/67; PULSE 62; RESP 16; TEMP 36.4; O2SAT 96
--- NOTE | 2018-03-04 17:35 | P.PNONC_ITS ---
PN -Subjective Interval history: IDENTIFICATION: The patient came here today accompanied by his for an scheduled follow-up because of an elevated platelet counts of more than a million. Patient is currently taking aspirin. During his previous visit with Dr. Ortega, that will be talked with him about the use of hydroxyurea. However patient has not decided yet at the moment. He is not sure about the benefit and risk of using the hydroxyurea. His is also asking if there is any other options for treating her essential thrombocytosis. Patient denies any headache double vision or blurred vision. Patient denies any shortness breath or chest pain. No abdominal pain or fullness. ONCOLOGICAL HISTORY Emilee Francisco is a 72-year-old gentleman who is referred by Dr. Elkins for evaluation and management of anemia and thrombocytosis. On December 25, 2017, he was seen for swollen lymph nodes in his groin. Examination at that time reports small, bilateral inguinal lymph nodes ranging approximately 0.5 cm. His routine lab showed WBC 5600, ANC 3472, hemoglobin 11.0, hematocrit 32.0, MCV 88.3, platelet count 1,011,000. Sedimentation rate 13, CRP less than 0.5. BUN 21, creatinine 1.10, calcium 9.2, glucose 88, B12 717, sodium 144, potassium 5.3, chloride 104, CO2 29. He was also being seen at the time by Dr. Grace in Orthopedics to evaluate burning, neuropathic pain in his feet. He was referred to Dr. Jones and on January 19, 2018 underwent colonoscopy with findings of 4 reportedly benign polyps. He was seen by Dr. Esteban Ortega on January 21, 2018. Lab results from that day showed that the white cell count 7.2, hemoglobin 10.6, hematocrit 30.7, platelets 324185, ANC 5.0, retic count 1.2%, creatinine level 1.0, LDH 747, iron 83, TIBC 308, saturation 27%, transferrin 230. Apollo 2 V617F mutation was positive. - Patient Self-Reported Symptoms SR ears, nose, mouth, throat issues: Swollen glands SR Cardiovascular issues: Chest pain, discomfort, tightness SR Genitourinary issues: Change in stream SR Hematologic issues: Swollen lymph nodes - Additional ROS All systems PM: reviewed and no additional remarkable complaints except as stated Home Medications and Allergies Home Medications Medication Instructions Recorded Confirmed Type pediatric ndplwldn-cajf-dsm 1 tab PO DAILY 01/20/18 01/20/18 History [Multi-Vitamins with Iron] aspirin 81 mg PO DAILY 03/04/18 03/04/18 History hydroxyurea [Hydrea] 500 mg PO DAILY #30 cap 03/04/18 Rx Allergies Allergy/AdvReac Type Severity Reaction Status Date / Time No Known Drug Allergies Allergy Verified 01/20/18 14:39 Exam Vital signs: Last Vital Signs Temp 97.6 F 03/04/18 16:06 Pulse 62 03/04/18 16:06 Resp 16 03/04/18 16:06 BP 126/67 03/04/18 16:06 Pulse Ox 96 03/04/18 16:06 - Constitutional positive no acute distress, positive average body habitus, positive cooperative - Routine HEENT Exam Head: Present: normocephalic, atraumatic Eye: Present: EOMI, PERRL, normal accommodation. Absent: conjunctival icterus ENT: Present: mucous membranes moist - Routine Neck Exam Present: supple. Absent: lymphadenopathy, thyromegaly, trachea midline - Routine Respiratory Exam Present: Clear to auscultation bilaterally. Absent: accessory muscle use, rales , respiratory distress, rhonchi, stridor, wheezes, crackles - Routine Cardiovascular Exam Present: RRR, S1, S2. Absent: murmur, gallop, rubs - Routine Abdominal Exam Present: soft, normoactive bowel sounds. Absent: tenderness, distended, organomegaly, mass, hernia - Routine Extremities Exam Absent: edema - Routine Neurological Exam Present: alert, oriented X3, CN II-XII intact, normal reflexes, normal tone, normal speech. 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 Current visit: Yes Status: Chronic (3) Peripheral neuropathy Onset Date: 2018 Problem details: tingling of feet and hands. maybe related to concurrent diagnosis of ET. Current visit: Yes Status: Chronic - Time Spent with Patient Today I spent considerable amount of time discussing with patient and patient's about the new diagnosis of essential thrombocytosis. Patient at present has a significantly elevated blood platelet counts. It is currently 1 million. I talked with the patient that with significantly elevated platelet counts, there is an increased risk of bleeding as well as an increased risk of blood. In my opinion that the risk of bleeding probably are with risk of blood clot. I would recommend that we temporarily hold the aspirin. Patient voiced understanding. Next I talked with the patient that for diagnosis of essential thrombocytosis, she I would recommend a bone marrow aspiration and biopsy to evaluate if there is any concurrent other medical hematological problems and if there is any significant myelofibrosis. I talked with them that bone marrow aspiration biopsy will provide us with more information regarding the new diagnosis of essential thrombocytosis and also will provide prognostic information. Given the high level of blood platelets, in my opinion that pharmacological intervention is indicated. I talked with the patient about several options including hydroxyurea, anagrelide and the new medication ruxolitinib. I talked with them that that hydroxyurea has the longest track record of safety and efficacy compared to all the other 2 options. Hydroxyurea is well tolerated and rarely we have seen some complications including possibly fatigue, bone marrow suppression, and skin rashes and also formation. There is controversy regarding the risk of secondary malignancy. Anagrelide is not used as often as hydroxyurea. Patient also tolerate it not as well as the hydroxyurea. And the abnormal reactions includes headache, palpitations, diarrhea, abdominal pain, dizziness etc as well as congestive heart failure or arrhythmia. Ruxolitinib is a new medication, it is approved for patients with essential thrombocytosis and PV. However my personal experience with ruxolitinib has been less favorable compared to hydroxyurea in that it is not well tolerated, and patient developed adverse reactions including bone marrow suppression, infection, skin reactions, and fatigue etc. Patient eventually agreed to start the treatment with Hydroxyurea. PLAN: 1. Bone marrow aspiration and biopsy in am 2. Start Hydroxyurea 500 mg daily after BMA/Bx 3. Hold aspirin temporarily 4. CBC and CMP weekly after start of Hydroxyurea 5. RTC MD visit in 3 weeks, CBC/CMP with the visit 6. Instructed him to call all any concerns or questions.
--- NOTE | 2018-03-05 | PATH_ITS ---
[facility] Accession Number: [id number] . 01 Material submitted: . PART A: BONE MARROW BIOPSY PART B: BONE MARROW BIOPSY PART C: BONE MARROW ASPIRATE . 01 Clinical history: . RIGHT HIP. Per Dr. Connie Barth's 03/04/2018 clinical note, this patient has a history of anemia, thrombocytosis, and recent diagnosis of essential thrombocythemia, JAK2 V617F positive. . 01 Diagnosis: BONE MARROW, CORE BIOPSY, ASPIRATE, AND CLOT SECTIONS: 1. Hypercellular marrow for age (65% cellular) with marked megakaryocytic hyperplasia, megakaryocyte atypia, and mild myeloid hyperplasia, without expanded blasts (see Comments) 2. Mild marrow reticulin fibrosis by special stain (MF 1+ out of 3) . PERIPHERAL BLOOD: 1. Marked thrombocytosis 2. Mild normocytic normochromic anemia 3. Mild absolute eosinophilia and basophilia . FLOW CYTOMETRIC ANALYSIS ([id number]): Bone marrow, aspirate: 1. No abnormal blast or myeloid cell population identified (see Flow Comments) 2. No abnormal B-cell or T-cell population identified . 03/10/2018 . 01 Comment: The morphologic and phenotypic findings in this marrow, in correlation with the reported positive JAK2 V617F mutation, are consistent with marrow involvement by a myeloproliferative neoplasm. The collective morphologic features of megakaryocyte hyperplasia; megakaryocyte atypia including several large, hyperlobate forms; atypical megakaryocyte clusters; and only mild marrow reticulin fibrosis, in the setting of marked thrombocytosis without concurrent erythrocytosis, are most compatible with essential thrombocythemia (ET). Correlation with the patient's complete clinical history, laboratory and radiologic studies, and continued follow-up of the patient's hematologic status is recommended. . Routine cytogenetic karyotyping is also being performed on the marrow aspirate, and will be reported separately in [id number] when complete. Of note, there is also a separate [facility] specimen accession, collected on 03/04/[address] Cook, for BCR-ABL1 quantitative RT-PCR to be performed on this patient, which will be reported in [id number] when complete. . FLOW CYTOMETRY COMMENTS: . There is no immunophenotypic evidence of a myeloid stem cell neoplasm or non-Hodgkin lymphoma. However, a low-grade myelodysplastic syndrome or chronic-phase myeloproliferative neoplasm cannot be entirely excluded by flow cytometry. Correlation of these findings with the bone marrow morphology, routine cytogenetic karyotyping, and other clinical and laboratory findings is recommended. Note that complete Hematopathology evaluation of the concurrently submitted marrow specimen will be reported separately in [id number]. . Flow cytometric analysis after lysis of the erythroid elements indicates that the viable leukocytes include 4.4% lymphocytes, 3.8% monocytes, 88% granulocytes, and 0.8% CD34+ myeloid blasts. The lymphocytes include 3.2% B-cells, 87% T-cells, and 5% NK-cells. The few mature B-cells have a normal kappa:lambda ratio of 1.4. The T-cells have a normal CD4:CD8 ratio of 1.9. The granulocytes exhibit normal expression of CD10, CD11b, CD13, CD16 and CD15; the monocytes exhibit normal expression of CD13, CD14, CD33 and CD64; and the CD34+ myeloid blasts have no significant immunophenotypic abnormalities. . . 01 Electronically signed: . Mara Garcia MD, Pathologist NPI- [id number] . 01 Gross description: . Received three formalin-filled containers, each labeled with the patient's name. No sources are on the containers: . A. In a container arbitrarily designated A, the specimen consists of a 0.3 cm in diameter by 1.8 cm in length portion of core, entirely submitted in cassette A and will be placed in Decal for softening. B. In a container arbitrarily designated B, the specimen consists of approximately a 0.75 cc aggregate of clotted blood, which is filtered, wrapped, and entirely submitted in cassette B. C. In a container arbitrarily designated C, the specimen consists of approximately a 12 cc aggregate of blood, which is filtered, wrapped, and entirely submitted in cassettes C1-C4. ([id number]) /FRR . 01 Microscopic: . CORE BIOPSY AND CLOT SECTIONS: . H/E-stained sections of the bone marrow core biopsy (block A1) reveal a well-sampled and intact core of trabecular bone and a hypercellular marrow for age, estimated at 65% cellularity. The marrow exhibits trilineage hematopoiesis with marked megakaryocytic hyperplasia and mild myeloid hyperplasia. Megakaryocytes form both atypical tight clusters and loose clusters, comprised of approximately 4-7 forms in the tight clusters and up to 20-25 forms in loose clusters. A distinct subset of enlarged megakaryocytes is identified, and atypical megakaryocytes with hyperlobate nuclei are also seen. A few megakaryocytes may also exhibit hyperchromatic nuclei, although partial crush artifact cannot be entirely excluded. There is no evidence of an expanded blast or immature cell population. One small, vague lymphoid collection may be present in the H/E levels of the core biopsy. H/E-stained sections of the clot in block B1 reveal abundant blood clot with a few embedded cellular marrow particles reflective of the core biopsy. H/E-stained sections of the clot in blocks C1-C4 reveal blood and fibrin only, with no cellular marrow particles. No distinct lymphoid aggregates are seen in the clot sections. . ASPIRATE SMEARS AND TOUCH PREPARATION: . The aspirate smears are aparticulate, partially clotted, and hemodilute, with scattered large platelet clusters. A touch preparation of the core biopsy is also hemodilute. Megakaryocytes are exceedingly rare to absent on the aspirate smears and touch preparation. The erythroid precursors present include a few dysplastic forms with nuclear budding and/or irregularity, but the dysplastic forms comprise far fewer than 10% of the total erythroid precursors seen. The myeloid precursors exhibit appropriate nuclear segmentation and cytoplasmic granularity. Both the erythroid and myeloid precursors lack significant megaloblastoid features. Lymphocytes are present in high normal to mildly elevated numbers, likely reflecting the hemodilution of the smears. Plasmacytic cells are present in normal numbers, and have no significant cytologic atypia. There is no obvious increase in histiocytes or mast cells. One hemophagocytic histiocyte/macrophage is identified on one of the aspirate smears. A differential count of 500 marrow hematopoietic cells from the aspirate smears reveals 0.2% blasts, 62.6% myeloid precursors, 19.6% erythroid precursors, 17% lymphocytes, and 0.6% plasma cells. . SPECIAL STAINS: . A reticulin stain performed on the core biopsy (A1) reveals mild reticulin fibrosis (WHO fibrosis grade 1 of 3). . The aspirate smear upon which an iron stain was performed is aparticulate; however, occasional sideroblasts and rare ring sideroblasts are identified among the normoblasts present. Two (2) ring sideroblasts are counted among 50 normoblasts (4% ring sideroblasts). An iron stain performed on the clot section B1 reveals an adequate to mildly elevated amount of stainable marrow storage iron. No prominent population of ring sideroblasts is evident on the B1 clot section iron stain. . IMMUNOHISTOCHEMISTRY*: . Select immunohistochemical studies were performed on the core biopsy (A1), with appropriate positive and negative controls, to help enumerate the cell lineages. CD34+ blasts comprise about 1% of the marrow cells. CD15+ myelomonocytic precursors and CD71+ erythroid precursors comprise about 75-80% and 15% of the marrow cells, respectively. An immunostain for vWF highlights the megakaryocytes. . PERIPHERAL BLOOD: . A Rivers-stained peripheral blood smear reveals the leukocytes to be normal in number, and a differential count of 300 cells reveals 62.7% neutrophils, 21.3% lymphocytes, 6.7% monocytes, 7% eosinophils, and 2.3% basophils. The circulating neutrophils have appropriate nuclear segmentation and cytoplasmic granularity. Per the CBC indices, the erythrocytes are mildly decreased in number and volume. There is minimal polychromasia and only mild erythrocyte anisopoikilocytosis, with a few elliptocytes and red cell fragments seen. Platelets are markedly elevated in number and variable in cell size. The platelets are generally well-granulated. . * Technical note: These tests and their performance characteristics have been determined by [facility]. They have not been cleared or approved by the U.S. Food and Drug Administration. The FDA has determined that such clearance or approval is not necessary. These tests are used for clinical purposes, and should not be regarded as investigational or for research. . . 01 Pathologist provided ICD-10: D47.3 . 01 CPT . 798652, 847258, 214384, 753608, 087357, 530682, 928899, 218838, 015758, J67011, J53401 Specimen Comment: A duplicate report has been generated due to demographic updates. Performed at: [address] [facility], [place], [place] [id number] MD Jose Alberto Humphrey MD Phone: [phone]
[2018-03-05 08:47] LABS: Add Manual Diff / Slide Review NO; Hematocrit 32.1 % (41-53); Hemoglobin 11.1 g/dL (13.5-17.5); Lymphocytes Percent Auto 19.8 % (25-40); Mean Corpuscular HGB Conc 34.5 % (30-36); Mean Corpuscular Hemoglobin 30.3 PG (26-34); Mean Corpuscular Volume 87.8 fL (80-100); Monocytes Percent Auto 7.8 % (3-14); Neutrophils Absolute Auto 4700 /uL (3000-5900); Neutrophils Percent Auto 65.4 % (50-75); Red Blood Cell Count 3.65 X10^6/uL (4.5-5.9); Red Cell Distribution Width 17.8 % (11.6-14.8); White Blood Cell Count 7.2 X10^3/uL (4.5-11.0)
[2018-03-05 09:10] LABS: Platelet Count 1264 X10^3/uL (150-400)
--- NOTE | 2018-03-05 17:40 | ONC.PROCEDUR ---
Date of procedure: 03/05/18 Diagnosis: Essential thrombocytosis Onc Bone Marrow: bone marrow biopsy and aspiration Procedure: Informed consent was signed by the patient after the indication and potential side effects were explained to the patient. Patient was instructed to lie on his left side. Right posterior iliac crest was sterilized and and draped per standard procedures. Anesthesia was obtained by injection of 1% lidocaine. A bone marrow aspiration needle was inserted without any difficulty. A total of 20 cc of bone marrow aspirate was able to be obtained and passed out to the table for preparation of slides. Thereafter I inserted the biopsy needle and obtained as above about 3 cm long. Patient tolerated the procedure very well. And no immediate complications.
[2018-03-25 14:55] LABS: Add Manual Diff / Slide Review NO; Basophils Percent Auto 0.8 % (0-2); Eosinophils Percent Auto 3.9 % (2-4); Hematocrit 31.5 % (41-53); Hemoglobin 10.9 g/dL (13.5-17.5); Lymphocytes Percent Auto 15.4 % (25-40); Mean Corpuscular HGB Conc 34.5 % (30-36); Mean Corpuscular Hemoglobin 30.5 PG (26-34); Mean Corpuscular Volume 88.4 fL (80-100); Monocytes Percent Auto 7.7 % (3-14); Neutrophils Absolute Auto 4200 /uL (3000-5900); Neutrophils Percent Auto 72.2 % (50-75); Platelet Count 836 X10^3/uL (150-400); Red Blood Cell Count 3.56 X10^6/uL (4.5-5.9); Red Cell Distribution Width 19.2 % (11.6-14.8); White Blood Cell Count 5.8 X10^3/uL (4.5-11.0)
[2018-03-25 15:02] LABS: Alanine Aminotransferase 38 IU/L (21-72); Albumin 4.6 g/dL (3.5-5.0); Albumin Globulin Ratio 1.6 (1.0-2.8); Alkaline Phosphatase 51 U/L (38-126); Aspartate Aminotransferase 36 IU/L (17-59); BUN Creatinine Ratio 19.1 (6-22); Bilirubin Total 0.5 mg/dL (0.2-1.3); Blood Urea Nitrogen 21 mg/dL (9-20); Calcium 8.8 mg/dL (8.4-10.2); Carbon Dioxide 27 mmol/L (22-32); Chloride 106 mmol/L (98-107); Estimated Glomerular Filt Rate > 60.0 mL/min (>60); Globulin 2.8 g/dL (1.7-4.1); Glucose 100 mg/dL (80-110); HEMOLYSIS < 15 (0-50); Potassium 4.3 mmol/L (3.4-5.1); Sodium 145 mmol/L (137-145); Total Protein 7.4 g/dL (6.3-8.2)
[2018-03-25 15:28] VITALS: BP 141/71; PULSE 67; RESP 18; TEMP 36.7; O2SAT 96
[2018-03-25 15:46] LABS: Anisocytosis 1+; Platelet Estimate Increased on smear; Polychromasia 1+
[2018-03-25 15:47] LABS: Platelet Morphology Comment PLATELETS:
--- NOTE | 2018-03-25 16:16 | P.PNONC_ITS ---
PN -Subjective Interval history: IDENTIFICATION: 72-year-old gentleman with essential thrombocytosis. INTERIM EVENTS The patient underwent bone marrow aspiration and biopsy on March 05, 2018. There after patient started hydroxyurea 500 mg once a day. Patient has tolerated therapy well. He reports no nausea no vomiting. No diarrhea no constipation. No fatigue. Patient presents here today for review of the bone marrow aspiration biopsy results. Patient is planning to go on a hunting trip. The hematopathology of the bone marrow aspiration and biopsy showed hypercellular marrow for age (65% cellular) with marked megakaryocytic hyperplasia, megakaryocytic atypia, and mild myeloid hyperplasia without expanded blasts. There is mild marrow reticulin fibrosis by special stain) mf 1 + out of 3). Flow cytometry showed no abnormal blast or myeloid population identified and no abnormal B-cell or T-cell population identified. Cytogenetic studies showed that the karyotype is normal 46, xy. ONCOLOGICAL HISTORY Emilee Francisco is a 72-year-old gentleman who is referred by Dr. Elkins for evaluation and management of anemia and thrombocytosis. On December 25, 2017, he was seen for swollen lymph nodes in his groin. Examination at that time reports small, bilateral inguinal lymph nodes ranging approximately 0.5 cm. His routine lab showed WBC 5600, ANC 3472, hemoglobin 11.0, hematocrit 32.0, MCV 88.3, platelet count 1,011,000. Sedimentation rate 13, CRP less than 0.5. BUN 21, creatinine 1.10, calcium 9.2, glucose 88, B12 717, sodium 144, potassium 5.3, chloride 104, CO2 29. He was also being seen at the time by Dr. Grace in Orthopedics to evaluate burning, neuropathic pain in his feet. He was referred to Dr. Jones and on January 19, 2018 underwent colonoscopy with findings of 4 reportedly benign polyps. He was seen by Dr. Esteban Ortega on January 21, 2018. Lab results from that day showed that the white cell count 7.2, hemoglobin 10.6, hematocrit 30.7, platelets 351202, ANC 5.0, retic count 1.2%, creatinine level 1.0, LDH 747, iron 83, TIBC 308, saturation 27%, transferrin 230. Apollo 2 V617F mutation was positive. - Patient Self-Reported Symptoms SR ears, nose, mouth, throat issues: Swollen glands SR Cardiovascular issues: Chest pain, discomfort, tightness SR Genitourinary issues: Change in stream SR Hematologic issues: Swollen lymph nodes - Additional ROS All systems PM: reviewed and no additional remarkable complaints except as stated Home Medications and Allergies Home Medications Medication Instructions Recorded Confirmed Type pediatric jhnixekh-sdbw-sdm 1 tab PO DAILY 01/20/18 01/20/18 History [Multi-Vitamins with Iron] aspirin 81 mg PO DAILY 03/04/18 03/04/18 History hydroxyurea [Hydrea] 500 mg PO DAILY #30 cap 03/04/18 Rx Allergies Allergy/AdvReac Type Severity Reaction Status Date / Time No Known Drug Allergies Allergy Verified 01/20/18 14:39 Exam Vital signs: Last Vital Signs Temp 98.1 F 03/25/18 15:28 Pulse 67 03/25/18 15:28 Resp 18 03/25/18 15:28 BP 141/71 H 03/25/18 15:28 Pulse Ox 96 03/25/18 15:28 ECOG 1 Narrative: Constitutional: Well developed, well nourished, not in any acute respiratory distress, average body habitus, well groomed, pleasant and cooperative. HEENT: Normocephalic atraumatic. Extraocular muscle movement intact. Pupils are round, equal and reactive to light and accommodations. Anicteric sclera. No hearing difficulty; Oral mucus membrane moist and without ulcers. Neck: Supple, symmetrical, and tracheal midline; No palpable thyromegaly and no palpable lymph nodes. Respiratory: No use of accessory muscles. Clear to auscultation, and no wheezes or rales or rubs. Cardiovascular: Regular rate and rhythm, S1 and S2 normal, no murmurs gallops or rubs. No JVD. No pitting edema of lower extremities. Abdomen: Soft, nontender, non-distended, bowel sounds normal, no palpable organomegaly, no hernia, no palpable masses. Lower extremities: No palpable pedal edema. Lymphatic: no palpable lymph nodes in the neck, axillae, or groins. Musculoskeletal: normal gait and station, no clubbing, no cyanosis, no pitting edema. Skin: no rashes, no ulcers, no petechiae Neurological: Awake and alert and oriented x3. CN II-XII grossly intact. No focal motor or sensory deficit. Psychiatric: Good judgment, good insight, normal affect, normal thought process , cooperative, no depression, no anxiety. Results - Labs Laboratory Last Values WBC 5.8 X10^3/uL (4.5-11.0) 03/25/18 14:41 RBC 3.56 X10^6/uL (4.5-5.9) L 03/25/18 14:41 Hgb 10.9 g/dL (13.5-17.5) L 03/25/18 14:41 Hct 31.5 % (41-53) L 03/25/18 14:41 MCV 88.4 fL (80-100) 03/25/18 14:41 MCH 30.5 PG (26-34) 03/25/18 14:41 MCHC 34.5 % (30-36) 03/25/18 14:41 RDW 19.2 % (11.6-14.8) H 03/25/18 14:41 Plt Count 836 X10^3/uL (150-400) H 03/25/18 14:41 Neut % (Auto) 72.2 % (50-75) 03/25/18 14:41 Lymph % (Auto) 15.4 % (25-40) L 03/25/18 14:41 Louisa % (Auto) 7.7 % (3-14) 03/25/18 14:41 Eos % (Auto) 3.9 % (2-4) 03/25/18 14:41 Baso % (Auto) 0.8 % (0-2) 03/25/18 14:41 Neut # (Auto) 4200 /uL (5831-4132) 03/25/18 14:41 Platelet Estimate Increased on smear 03/25/18 14:41 Plt Morphology Comment Platelets: 03/25/18 14:41 RBC Morphology See below 03/25/18 14:41 Polychromasia 1+ H 03/25/18 14:41 Anisocytosis 1+ H 03/25/18 14:41 Sodium 145 mmol/L (137-145) 03/25/18 14:41 Potassium 4.3 mmol/L (3.4-5.1) 03/25/18 14:41 Chloride 106 mmol/L (98-107) 03/25/18 14:41 Carbon Dioxide 27 mmol/L (22-32) 03/25/18 14:41 BUN 21 mg/dL (9-20) H 03/25/18 14:41 Creatinine 1.10 mg/dL (0.66-1.25) 03/25/18 14:41 Estimated GFR > 60.0 mL/min (>60) 03/25/18 14:41 BUN/Creatinine Ratio 19.1 (6-22) 03/25/18 14:41 Glucose 100 mg/dL (80-110) 03/25/18 14:41 Calcium 8.8 mg/dL (8.4-10.2) 03/25/18 14:41 Total Bilirubin 0.5 mg/dL (0.2-1.3) 03/25/18 14:41 AST 36 IU/L (17-59) 03/25/18 14:41 ALT 38 IU/L (21-72) 03/25/18 14:41 Alkaline Phosphatase 51 U/L (38-126) 03/25/18 14:41 Total Protein 7.4 g/dL (6.3-8.2) 03/25/18 14:41 Albumin 4.6 g/dL (3.5-5.0) 03/25/18 14:41 Globulin 2.8 g/dL (1.7-4.1) 03/25/18 14:41 Albumin/Globulin Ratio 1.6 (1.0-2.8) 03/25/18 14:41 Assessment and Plan (1) Essential thrombocytosis Onset Date: 2017 Problem details: JACK2 V617F mutation positive Current visit: Yes Status: Chronic Since March 05, 2018, patient started hydroxyurea 500 mg once a day. Patient tolerated very well. Patient's platelet counts have dropped from more than a million to current 800 and +. The bone marrow aspiration and biopsy did not show any significant myelofibrosis or other abnormalities. And I will continue hydroxyurea for the time being. I talked with the patient that my goal is trying to get the platelet counts to as normal as possible without any other cytopenias especially leukopenia or anemia. I talked with the patient that hydroxyurea can cause pancytopenia. Patient voiced understanding. I will have patient come back in 1 week recheck CBC CMP. I will review the results. And I will see the patient in about 3 weeks on April 12, 2018. We will repeat the CBC CMP. (2) Anemia Onset Date: 2017 Problem details: normocytic, likely related to concurrent diagnosis of ET. Current visit: Yes Status: Chronic Stable. Continue current active surveillance. (3) Peripheral neuropathy Onset Date: 2018 Problem details: tingling of feet and hands. maybe related to concurrent diagnosis of ET. Current visit: Yes Status: Chronic Stable. Observe for now.
[2018-04-01 08:39] LABS: Add Manual Diff / Slide Review NO; Basophils Percent Auto 0.9 % (0-2); Eosinophils Percent Auto 4.5 % (2-4); Hematocrit 31.6 % (41-53); Hemoglobin 10.8 g/dL (13.5-17.5); Lymphocytes Percent Auto 15.4 % (25-40); Mean Corpuscular HGB Conc 34.2 % (30-36); Mean Corpuscular Hemoglobin 30.9 PG (26-34); Mean Corpuscular Volume 90.5 fL (80-100); Monocytes Percent Auto 8.6 % (3-14); Neutrophils Absolute Auto 3800 /uL (3000-5900); Neutrophils Percent Auto 70.6 % (50-75); Platelet Count 781 X10^3/uL (150-400); Red Blood Cell Count 3.49 X10^6/uL (4.5-5.9); White Blood Cell Count 5.3 X10^3/uL (4.5-11.0)
[2018-04-01 08:49] LABS: Alanine Aminotransferase 34 IU/L (21-72); Albumin 4.4 g/dL (3.5-5.0); Albumin Globulin Ratio 1.6 (1.0-2.8); Alkaline Phosphatase 50 U/L (38-126); Aspartate Aminotransferase 37 IU/L (17-59); Bilirubin Total 0.4 mg/dL (0.2-1.3); Blood Urea Nitrogen 26 mg/dL (9-20); Carbon Dioxide 26 mmol/L (22-32); Chloride 104 mmol/L (98-107); Estimated Glomerular Filt Rate 54.6 mL/min (>60); Globulin 2.8 g/dL (1.7-4.1); Glucose 126 mg/dL (80-110); HEMOLYSIS < 15 (0-50); Potassium 4.4 mmol/L (3.4-5.1); Sodium 143 mmol/L (137-145); Total Protein 7.2 g/dL (6.3-8.2)
[2018-04-01 10:08] LABS: Anisocytosis 1+
[2018-04-12 10:54] LABS: Hematocrit 32.9 % (41-53); Hemoglobin 11.2 g/dL (13.5-17.5); Lymphocytes Percent Auto 18.2 % (25-40); Mean Corpuscular Hemoglobin 31.3 PG (26-34); Mean Corpuscular Volume 92.1 fL (80-100); Monocytes Percent Auto 11.6 % (3-14); Neutrophils Absolute Auto 3300 /uL (3000-5900); Neutrophils Percent Auto 66.2 % (50-75); Red Blood Cell Count 3.57 X10^6/uL (4.5-5.9); Red Cell Distribution Width 21.8 % (11.6-14.8); White Blood Cell Count 4.9 X10^3/uL (4.5-11.0)
[2018-04-12 10:59] LABS: Add Manual Diff / Slide Review SLIDE REVIEW; Platelet Count 838 X10^3/uL (150-400)
[2018-04-12 11:10] LABS: Alanine Aminotransferase 38 IU/L (21-72); Albumin 4.6 g/dL (3.5-5.0); Albumin Globulin Ratio 1.6 (1.0-2.8); Alkaline Phosphatase 49 U/L (38-126); Aspartate Aminotransferase 43 IU/L (17-59); BUN Creatinine Ratio 17.9 (6-22); Bilirubin Total 0.6 mg/dL (0.2-1.3); Blood Urea Nitrogen 25 mg/dL (9-20); Calcium 9.3 mg/dL (8.4-10.2); Carbon Dioxide 27 mmol/L (22-32); Chloride 106 mmol/L (98-107); Estimated Glomerular Filt Rate 50.1 mL/min (>60); Globulin 2.8 g/dL (1.7-4.1); Glucose 86 mg/dL (80-110); HEMOLYSIS < 15 (0-50); Potassium 4.7 mmol/L (3.4-5.1); Sodium 145 mmol/L (137-145); Total Protein 7.4 g/dL (6.3-8.2)
[2018-04-12 11:22] VITALS: BP 135/72; PULSE 51; RESP 18; TEMP 36.4; O2SAT 100
--- NOTE | 2018-04-12 11:24 | P.PNONC_ITS ---
PN -Subjective Interval history: IDENTIFICATION: 72-year-old gentleman with essential thrombocytosis now on treatment with hydrea. INTERIM EVENTS Patient went on a hunting trip since last visit. Patient said he had to walk for a long long distance and he has been doing well. He denies any fever or chills. No nausea no vomiting. He denies any skin rashes or bleeding events. He denies any abdominal pain diarrhea or constipation. Patient is currently taking hydroxyurea 500 mg once a day. ONCOLOGICAL HISTORY Emilee Francisco is a 72-year-old gentleman who is referred by Dr. Elkins for evaluation and management of anemia and thrombocytosis. On December 25, 2017, he was seen for swollen lymph nodes in his groin. Examination at that time reports small, bilateral inguinal lymph nodes ranging approximately 0.5 cm. His routine lab showed WBC 5600, ANC 3472, hemoglobin 11.0, hematocrit 32.0, MCV 88.3, platelet count 1,011,000. Sedimentation rate 13, CRP less than 0.5. BUN 21, creatinine 1.10, calcium 9.2, glucose 88, B12 717, sodium 144, potassium 5.3, chloride 104, CO2 29. He was also being seen at the time by Dr. Graec in Orthopedics to evaluate burning, neuropathic pain in his feet. He was referred to Dr. Jones and on January 19, 2018 underwent colonoscopy with findings of 4 reportedly benign polyps. He was seen by Dr. Esteban Ortega on January 21, 2018. Lab results from that day showed that the white cell count 7.2, hemoglobin 10.6, hematocrit 30.7, platelets [id number], ANC 5.0, retic count 1.2%, creatinine level 1.0, LDH 747, iron 83, TIBC 308, saturation 27%, transferrin 230. 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 The patient underwent bone marrow aspiration and biopsy on March 05, 2018. The hematopathology showed hypercellular marrow for age (65% cellular) with marked megakaryocytic hyperplasia, megakaryocytic atypia, and mild myeloid hyperplasia without expanded blasts. There is mild marrow reticulin fibrosis by special stain) MF 1+ out of 3). Flow cytometry showed no abnormal blast or myeloid population identified and no abnormal B-cell or T-cell population identified. Cytogenetic studies showed that the karyotype is normal 46, XY. The patient started hydroxyurea 500 mg once a day on Mar 05, 2018 - Patient Self-Reported Symptoms SR ears, nose, mouth, throat issues: Swollen glands SR Genitourinary issues: Change in stream SR Hematologic issues: Swollen lymph nodes - Additional ROS All systems PM: reviewed and no additional remarkable complaints except as stated Home Medications and Allergies Home Medications Medication Instructions Recorded Confirmed Type hydroxyurea [Hydrea] 500 mg PO DAILY #30 cap 03/04/18 Rx Adult One Daily Multivitamin 1 tab PO DAILY 04/12/18 04/12/18 History Allergies Allergy/AdvReac Type Severity Reaction Status Date / Time No Known Drug Allergies Allergy Verified 01/20/18 14:39 Exam Vital signs: Temp 97.5 F L 04/12/18 11:22 Pulse 51 L 04/12/18 11: Resp 18 04/12/18 11:22 BP 135/72 04/12/18 11:22 Pulse Ox 100 04/12/18 11:22 ECOG 1 Narrative: Constitutional: Well developed, well nourished, not in any acute respiratory distress, average body habitus, well groomed, pleasant and cooperative. HEENT: Normocephalic atraumatic. Extraocular muscle movement intact. Pupils are round, equal and reactive to light and accommodations. Anicteric sclera. No hearing difficulty; Oral mucus membrane moist and without ulcers. Neck: Supple, symmetrical, and tracheal midline; No palpable thyromegaly and no palpable lymph nodes. Respiratory: No use of accessory muscles. Clear to auscultation, and no wheezes or rales or rubs. Cardiovascular: Regular rate and rhythm, S1 and S2 normal, no murmurs gallops or rubs. No JVD. No pitting edema of lower extremities. Abdomen: Soft, nontender, non-distended, bowel sounds normal, no palpable organomegaly, no hernia, no palpable masses. Lower extremities: No palpable pedal edema. Lymphatic: no palpable lymph nodes in the neck, axillae, or groins. Musculoskeletal: normal gait and station, no clubbing, no cyanosis, no pitting edema. Skin: no rashes, no ulcers, no petechiae Neurological: Awake and alert and oriented x3. CN II-XII grossly intact. No focal motor or sensory deficit. Psychiatric: Good judgment, good insight, normal affect, normal thought process , cooperative, no depression, no anxiety. Results - Labs WBC 4.9 X10^3/uL (4.5-11.0) 04/12/18 10:40 RBC 3.57 X10^6/uL (4.5-5.9) L 04/12/18 10:40 Hgb 11.2 g/dL (13.5-17.5) L 04/12/18 10:40 Hct 32.9 % (41-53) L 04/12/18 10:40 MCV 92.1 fL (80-100) 04/12/18 10:40 MCH 31.3 PG (26-34) 04/12/18 10:40 MCHC 34.0 % (30-36) 04/12/18 10:40 RDW 21.8 % (11.6-14.8) H 04/12/18 10:40 Plt Count 838 X10^3/uL (150-400) H 04/12/18 10:40 Neut % (Auto) 66.2 % (50-75) 04/12/18 10:40 Lymph % (Auto) 18.2 % (25-40) L 04/12/18 10:40 [place] % (Auto) 11.6 % (3-14) 04/12/18 10:40 Eos % (Auto) 3.0 % (2-4) 04/12/18 10:40 Baso % (Auto) 1.0 % (0-2) 04/12/18 10:40 Neut # (Auto) 3300 /uL (2547-7163) 04/12/18 10:40 Platelet Estimate 04/01/18 08:22 Plt Morphology Comment Platelets: 03/25/18 14:41 RBC Morphology Not Reportable 04/01/18 08:22 Polychromasia 1+ H 03/25/18 14:41 Anisocytosis 1+ H 04/01/18 08:22 Sodium 145 mmol/L (137-145) 04/12/18 10:40 Potassium 4.7 mmol/L (3.4-5.1) 04/12/18 10:40 Chloride 106 mmol/L (98-107) 04/12/18 10:40 Carbon Dioxide 27 mmol/L (22-32) 04/12/18 10:40 BUN 25 mg/dL (9-20) H 04/12/18 10:40 Creatinine 1.40 mg/dL (0.66-1.25) H 04/12/18 10:40 Estimated GFR 50.1 mL/min (>60) L 04/12/18 10:40 BUN/Creatinine Ratio 17.9 (6-22) 04/12/18 10:40 Glucose 86 mg/dL (80-110) 04/12/18 10:40 Calcium 9.3 mg/dL (8.4-10.2) 04/12/18 10:40 Total Bilirubin 0.6 mg/dL (0.2-1.3) 04/12/18 10:40 AST 43 IU/L (17-59) 04/12/18 10:40 ALT 38 IU/L (21-72) 04/12/18 10:40 Alkaline Phosphatase 49 U/L (38-126) 04/12/18 10:40 Total Protein 7.4 g/dL (6.3-8.2) 04/12/18 10:40 Albumin 4.6 g/dL (3.5-5.0) 04/12/18 10:40 Globulin 2.8 g/dL (1.7-4.1) 04/12/18 10:40 Albumin/Globulin Ratio 1.6 (1.0-2.8) 04/12/18 10:40 Assessment and Plan (1) Essential thrombocytosis Onset Date: 2017 Problem details: JACK2 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 However the platelet counts are still elevated at seems to be trending up. Clinically PD not have any bleeding events. I talked with the patient that I will recommend increase the dosage of hydroxyurea to 500 mg twice daily. And I will monitor the blood counts every week. I will see the patient in 2 weeks to further evaluate about the dosage of hydroxyurea. (2) Anemia Onset Date: 2017 Problem details: normocytic, likely related to concurrent diagnosis of ET. Stable. Continue current active surveillance. (3) Peripheral neuropathy Onset Date: 2017 Problem details: tingling of feet and hands. maybe related to concurrent diagnosis of ET. Stable. Observe for now.
[2018-04-12 11:46] LABS: Platelet Estimate Increased on smear
[2018-04-12 11:47] LABS: Anisocytosis 2+; Polychromasia 1+
[2018-04-19 08:48] LABS: Basophils Percent Auto 0.7 % (0-2); Eosinophils Percent Auto 2.6 % (2-4); Hematocrit 32.3 % (41-53); Hemoglobin 11.3 g/dL (13.5-17.5); Mean Corpuscular Hemoglobin 32.2 PG (26-34); Mean Corpuscular Volume 91.9 fL (80-100); Neutrophils Absolute Auto 2700 /uL (3000-5900); Neutrophils Percent Auto 73.7 % (50-75); Platelet Count 736 X10^3/uL (150-400); Red Blood Cell Count 3.51 X10^6/uL (4.5-5.9); Red Cell Distribution Width 21.3 % (11.6-14.8); White Blood Cell Count 3.7 X10^3/uL (4.5-11.0)
[2018-04-19 08:49] LABS: Add Manual Diff / Slide Review SLIDE REVIEW
[2018-04-19 09:23] LABS: Anisocytosis 2+; Platelet Estimate Increased on smear
--- NOTE | 2018-04-21 13:14 | PC.NURSE ---
Pt called stating he did not have enough Hydrea left to cover the new dosage you wanted. After reviewing your notes for this pt dated 04/12 I read you did increase his dosage from 500mg qd to 500mg BID. While he had 6 refills on his current Rx, insurance would not allow for a new refill in such a short amount of time from his last refill. To solve this problem for the pt, I called in a new Rx based on your most recent notes regarding the increase. I also added one refill. This should get him thru until he sees you again later this month for follow up to see if this increase is working.
[2018-04-26 15:14] LABS: Add Manual Diff / Slide Review NO; Basophils Percent Auto 0.7 % (0-2); Eosinophils Percent Auto 2.1 % (2-4); Hematocrit 33.6 % (41-53); Hemoglobin 11.4 g/dL (13.5-17.5); Lymphocytes Percent Auto 14.3 % (25-40); Mean Corpuscular HGB Conc 33.9 % (30-36); Mean Corpuscular Hemoglobin 32.3 PG (26-34); Mean Corpuscular Volume 95.2 fL (80-100); Monocytes Percent Auto 4.1 % (3-14); Neutrophils Absolute Auto 3600 /uL (3000-5900); Neutrophils Percent Auto 78.8 % (50-75); Platelet Count 683 X10^3/uL (150-400); Red Blood Cell Count 3.52 X10^6/uL (4.5-5.9); White Blood Cell Count 4.6 X10^3/uL (4.5-11.0)
[2018-04-26 15:22] LABS: Alanine Aminotransferase 37 IU/L (21-72); Albumin 4.5 g/dL (3.5-5.0); Albumin Globulin Ratio 1.6 (1.0-2.8); Alkaline Phosphatase 57 U/L (38-126); Aspartate Aminotransferase 29 IU/L (17-59); BUN Creatinine Ratio 21.5 (6-22); Bilirubin Total 0.3 mg/dL (0.2-1.3); Blood Urea Nitrogen 28 mg/dL (9-20); Calcium 8.8 mg/dL (8.4-10.2); Carbon Dioxide 25 mmol/L (22-32); Chloride 105 mmol/L (98-107); Estimated Glomerular Filt Rate 54.6 mL/min (>60); Globulin 2.9 g/dL (1.7-4.1); Glucose 141 mg/dL (80-110); HEMOLYSIS < 15 (0-50); Potassium 4.2 mmol/L (3.4-5.1); Sodium 144 mmol/L (137-145); Total Protein 7.4 g/dL (6.3-8.2)
[2018-04-26 15:41] LABS: Platelet Estimate Increased on smear; Platelet Morphology Comment NOTE:
[2018-04-26 15:42] LABS: Anisocytosis 2+; Macrocytosis 1+; Polychromasia 1+
--- NOTE | 2018-04-26 16:00 | P.PNONC_ITS ---
PN -Subjective Interval history: Since his last visit on April 12, 2018, patient was instructed to increase the dosage of hydroxyurea to 500 mg twice daily. Patient presents here today for scheduled follow-up. Clinically patient has tolerated the increased dosage extremely well. He denies any fever or chills. No nausea no vomiting. No diarrhea and no constipation. Overall he has been without any new signs or symptoms. Oncological History Emilee Francisco is a 72-year-old gentleman referred by Dr. Elkins for evaluation and management of anemia and thrombocytosis. On December 25, 2017, he was seen for swollen lymph nodes in his groin. Examination at that time reported small, bilateral inguinal lymph nodes ranging approximately 0.5 cm. His routine lab showed WBC 5600, ANC 3472, hemoglobin 11.0, hematocrit 32.0, MCV 88.3, platelet count 1,011,000. Sedimentation rate 13, CRP less than 0.5, BUN 21, creatinine 1.10, calcium 9.2, glucose 88, B12 717, sodium 144, potassium 5.3, chloride 104, CO2 29. He was also being seen at the time by Dr. Grace in Orthopedics to evaluate burning, neuropathic pain in his feet. He was referred to Dr. Jones and on January 19, 2018 underwent colonoscopy with findings of 4 reportedly benign polyps. He was seen by Dr. Esteban Ortega on January 21, 2018. Lab results from that day showed that the white cell count 7.2, hemoglobin 10.6 , hematocrit 30.7, platelets [id number], ANC 5.0, retic count 1.2%, creatinine level 1.0, LDH 747, iron 83, TIBC 308, saturation 27%, transferrin 230. 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 The patient underwent bone marrow aspiration and biopsy on March 05, 2018. The hematopathology showed hypercellular marrow for age (65% cellular) with marked megakaryocytic hyperplasia, megakaryocytic atypia, and mild myeloid hyperplasia without expanded blasts. There is mild marrow reticulin fibrosis by special stain (MF 1+ out of 3). Flow cytometry showed no abnormal blast or myeloid population identified and no abnormal B- cell or T-cell population identified. Cytogenetic studies showed that the karyotype is normal 46, XY. The patient started hydroxyurea 500 mg once a day on Mar 05, 2018 - Patient Self-Reported Symptoms SR ears, nose, mouth, throat issues: Swollen glands SR Cardiovascular issues: Chest pain, discomfort, tightness SR Genitourinary issues: Change in stream SR Hematologic issues: Swollen lymph nodes - Additional ROS All systems PM: reviewed and no additional remarkable complaints except as stated Home Medications and Allergies Home Medications Medication Instructions Recorded Confirmed Type hydroxyurea [Hydrea] 500 mg PO DAILY #30 cap 03/04/18 04/26/18 Rx Adult One Daily Multivitamin 1 tab PO DAILY 04/12/18 04/12/18 History Allergies Allergy/AdvReac Type Severity Reaction Status Date / Time No Known Drug Allergies Allergy Verified 01/20/18 14:39 Exam Vital signs: 3 Temp 97.7 F 04/26/18 16:01 Pulse 76 04/26/18 16:01 Resp 18 04/26/18 16:01 BP 135/76 04/26/18 16:01 Pulse Ox 98 04/26/18 16:01 ECOG 1 Narrative: Constitutional: Well developed, well nourished, not in any acute respiratory distress, average body habitus, well groomed, pleasant and cooperative. HEENT: Normocephalic atraumatic. Extraocular muscle movement intact. Pupils are round, equal and reactive to light and accommodations. Anicteric sclera. No hearing difficulty; Oral mucus membrane moist and without ulcers. Neck: Supple, symmetrical, and tracheal midline; No palpable thyromegaly and no palpable lymph nodes. Respiratory: No use of accessory muscles. Clear to auscultation, and no wheezes or rales or rubs. Cardiovascular: Regular rate and rhythm, S1 and S2 normal, no murmurs gallops or rubs. No JVD. No pitting edema of lower extremities. Abdomen: Soft, nontender, non-distended, bowel sounds normal, no palpable organomegaly, no hernia, no palpable masses. Lower extremities: No palpable pedal edema. Lymphatic: no palpable lymph nodes in the neck, axillae, or groins. Musculoskeletal: normal gait and station, no clubbing, no cyanosis, no pitting edema. Skin: no rashes, no ulcers, no petechiae Neurological: Awake and alert and oriented x3. CN II-XII grossly intact. No focal motor or sensory deficit. Psychiatric: Good judgment, good insight, normal affect, normal thought process , cooperative, no depression, no anxiety. Results - Labs 3 WBC 4.6 X10^3/uL (4.5-11.0) 04/26/18 14:55 RBC 3.52 X10^6/uL (4.5-5.9) L 04/26/18 14:55 Hgb 11.4 g/dL (13.5-17.5) L 04/26/18 14:55 Hct 33.6 % (41-53) L 04/26/18 14:55 MCV 95.2 fL (80-100) D 04/26/18 14:55 MCH 32.3 PG (26-34) 04/26/18 14:55 MCHC 33.9 % (30-36) 04/26/18 14:55 RDW 22.0 % (11.6-14.8) H 04/26/18 14:55 Plt Count 683 X10^3/uL (150-400) H 04/26/18 14:55 Neut % (Auto) 78.8 % (50-75) H 04/26/18 14:55 Lymph % (Auto) 14.3 % (25-40) L 04/26/18 14:55 [place] % (Auto) 4.1 % (3-14) 04/26/18 14:55 Eos % (Auto) 2.1 % (2-4) 04/26/18 14:55 Baso % (Auto) 0.7 % (0-2) 04/26/18 14:55 Neut # (Auto) 3600 /uL (1475-2256) 04/26/18 14:55 Platelet Estimate Increased on smear 04/26/18 14:55 Plt Morphology Comment Note: 04/26/18 14:55 RBC Morphology See below 04/26/18 14:55 Polychromasia 1+ H 04/26/18 14:55 Anisocytosis 2+ H 04/26/18 14:55 Macrocytosis 1+ H 04/26/18 14:55 Sodium 144 mmol/L (137-145) 04/26/18 14:55 Potassium 4.2 mmol/L (3.4-5.1) 04/26/18 14:55 Chloride 105 mmol/L (98-107) 04/26/18 14:55 Carbon Dioxide 25 mmol/L (22-32) 04/26/18 14:55 BUN 28 mg/dL (9-20) H 04/26/18 14:55 Creatinine 1.30 mg/dL (0.66-1.25) H 04/26/18 14:55 Estimated GFR 54.6 mL/min (>60) L 04/26/18 14:55 BUN/Creatinine Ratio 21.5 (6-22) 04/26/18 14:55 Glucose 141 mg/dL (80-110) H 04/26/18 14:55 Calcium 8.8 mg/dL (8.4-10.2) 04/26/18 14:55 Total Bilirubin 0.3 mg/dL (0.2-1.3) 04/26/18 14:55 AST 29 IU/L (17-59) 04/26/18 14:55 ALT 37 IU/L (21-72) 04/26/18 14:55 Alkaline Phosphatase 57 U/L (38-126) 04/26/18 14:55 Total Protein 7.4 g/dL (6.3-8.2) 04/26/18 14:55 Albumin 4.5 g/dL (3.5-5.0) 04/26/18 14:55 Globulin 2.9 g/dL (1.7-4.1) 04/26/18 14:55 Albumin/Globulin Ratio 1.6 (1.0-2.8) 04/26/18 14:55 Assessment and Plan (1) Essential thrombocytosis Onset Date: 2017 Problem details: 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 Will continue without any changes. Plan: 1. Continue Hydrea 500 mg bid 2. Lab only visit in 2 weeks: CBC, CMP 3. RTC MD visit in 4 weeks, CBC, CMP (2) Anemia Onset Date: 2017 Problem details: normocytic, likely related to concurrent diagnosis of ET. Stable. Plan: Continue current active surveillance. (3) Peripheral neuropathy Onset Date: 2018 Problem details: tingling of feet and hands. maybe related to concurrent diagnosis of ET. Stable. Plan: Observe for now.
[2018-04-26 16:01] VITALS: BP 135/76; PULSE 76; RESP 18; TEMP 36.5; O2SAT 98
[2018-05-10 08:38] LABS: Add Manual Diff / Slide Review NO; Basophils Percent Auto 0.7 % (0-2); Eosinophils Percent Auto 1.5 % (2-4); Hematocrit 34.1 % (41-53); Hemoglobin 11.6 g/dL (13.5-17.5); Lymphocytes Percent Auto 20.3 % (25-40); Mean Corpuscular HGB Conc 34.1 % (30-36); Mean Corpuscular Hemoglobin 33.4 PG (26-34); Mean Corpuscular Volume 97.8 fL (80-100); Monocytes Percent Auto 9.3 % (3-14); Neutrophils Absolute Auto 2700 /uL (3000-5900); Neutrophils Percent Auto 68.2 % (50-75); Platelet Count 550 X10^3/uL (150-400); Red Blood Cell Count 3.49 X10^6/uL (4.5-5.9); Red Cell Distribution Width 24.3 % (11.6-14.8); White Blood Cell Count 3.9 X10^3/uL (4.5-11.0)
[2018-05-10 08:54] LABS: Alanine Aminotransferase 39 IU/L (21-72); Albumin 4.3 g/dL (3.5-5.0); Albumin Globulin Ratio 1.4 (1.0-2.8); Alkaline Phosphatase 57 U/L (38-126); Aspartate Aminotransferase 46 IU/L (17-59); Bilirubin Total 0.6 mg/dL (0.2-1.3); Calcium 8.7 mg/dL (8.4-10.2); Carbon Dioxide 27 mmol/L (22-32); Chloride 101 mmol/L (98-107); Estimated Glomerular Filt Rate 59.9 mL/min (>60); Glucose 97 mg/dL (80-110); HEMOLYSIS < 15 (0-50); Potassium 4.6 mmol/L (3.4-5.1); Sodium 138 mmol/L (137-145); Total Protein 7.3 g/dL (6.3-8.2)
[2018-05-10 09:08] LABS: Anisocytosis 2+; Macrocytosis 2+
[2018-05-10 09:11] LABS: BUN Creatinine Ratio 16.7 (6-22); Blood Urea Nitrogen 20 mg/dL (9-20)
[2018-05-24 11:35] LABS: Alanine Aminotransferase 39 IU/L (21-72); Albumin 4.6 g/dL (3.5-5.0); Albumin Globulin Ratio 1.5 (1.0-2.8); Alkaline Phosphatase 51 U/L (38-126); Aspartate Aminotransferase 38 IU/L (17-59); BUN Creatinine Ratio 23.6 (6-22); Bilirubin Total 0.3 mg/dL (0.2-1.3); Blood Urea Nitrogen 26 mg/dL (9-20); Calcium 9.2 mg/dL (8.4-10.2); Carbon Dioxide 26 mmol/L (22-32); Chloride 104 mmol/L (98-107); Estimated Glomerular Filt Rate > 60.0 mL/min (>60); Glucose 113 mg/dL (80-110); HEMOLYSIS < 15 (0-50); Potassium 4.7 mmol/L (3.4-5.1); Sodium 142 mmol/L (137-145); Total Protein 7.6 g/dL (6.3-8.2)
[2018-05-24 11:36] LABS: Add Manual Diff / Slide Review NO; Basophils Percent Auto 0.7 % (0-2); Eosinophils Percent Auto 1.2 % (2-4); Hematocrit 34.7 % (41-53); Hemoglobin 11.7 g/dL (13.5-17.5); Lymphocytes Percent Auto 14.9 % (25-40); Mean Corpuscular HGB Conc 33.7 % (30-36); Mean Corpuscular Hemoglobin 34.2 PG (26-34); Mean Corpuscular Volume 101.2 fL (80-100); Monocytes Percent Auto 6.5 % (3-14); Neutrophils Absolute Auto 4300 /uL (3000-5900); Neutrophils Percent Auto 76.7 % (50-75); Platelet Count 587 X10^3/uL (150-400); Red Blood Cell Count 3.43 X10^6/uL (4.5-5.9); Red Cell Distribution Width 26.3 % (11.6-14.8); White Blood Cell Count 5.6 X10^3/uL (4.5-11.0)
[2018-05-24 11:51] VITALS: BP 132/70; PULSE 66; RESP 18; TEMP 36.6; O2SAT 98
[2018-05-24 12:12] LABS: Anisocytosis 3+
[2018-05-24 12:13] LABS: Poikilocytosis 1+
--- NOTE | 2018-05-24 12:17 | P.PNONC_ITS ---
PN -Subjective Interval history: Since his last visit on April 12, 2018, patient was instructed to increase the dosage of hydroxyurea to 500 mg twice daily. Patient presents here today for scheduled follow-up. Clinically patient has tolerated the increased dosage extremely well. He denies any fever or chills. No nausea no vomiting. No diarrhea and no constipation. Overall he has been without any new signs or symptoms. Oncological History Emilee Francisco is a 72-year-old gentleman referred by Dr. Elkins for evaluation and management of anemia and thrombocytosis. On December 25, 2017, he was seen for swollen lymph nodes in his groin. Examination at that time reported small, bilateral inguinal lymph nodes ranging approximately 0.5 cm. His routine lab showed WBC 5600, ANC 3472, hemoglobin 11.0, hematocrit 32.0, MCV 88.3, platelet count 1,011,000. Sedimentation rate 13, CRP less than 0.5, BUN 21, creatinine 1.10, calcium 9.2, glucose 88, B12 717, sodium 144, potassium 5.3, chloride 104, CO2 29. He was also being seen at the time by Dr. Grace in Orthopedics to evaluate burning, neuropathic pain in his feet. He was referred to Dr. Jones and on January 19, 2018 underwent colonoscopy with findings of 4 reportedly benign polyps. He was seen by Dr. Esteban Ortega on January 21, 2018. Lab results from that day showed that the white cell count 7.2, hemoglobin 10.6 , hematocrit 30.7, platelets [id number], ANC 5.0, retic count 1.2%, creatinine level 1.0, LDH 747, iron 83, TIBC 308, saturation 27%, transferrin 230. 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 The patient underwent bone marrow aspiration and biopsy on March 05, 2018. The hematopathology showed hypercellular marrow for age (65% cellular) with marked megakaryocytic hyperplasia, megakaryocytic atypia, and mild myeloid hyperplasia without expanded blasts. There is mild marrow reticulin fibrosis by special stain (MF 1+ out of 3). Flow cytometry showed no abnormal blast or myeloid population identified and no abnormal B- cell or T-cell population identified. Cytogenetic studies showed that the karyotype is normal 46, XY. The patient started hydroxyurea 500 mg once a day on Mar 05, 2018 - Patient Self-Reported Symptoms SR ears, nose, mouth, throat issues: Swollen glands SR Cardiovascular issues: Chest pain, discomfort, tightness SR Genitourinary issues: Change in stream SR Hematologic issues: Swollen lymph nodes Home Medications and Allergies Home Medications Medication Instructions Recorded Confirmed Type hydroxyurea [Hydrea] 500 mg PO DAILY #30 cap 03/04/18 04/26/18 Rx Adult One Daily Multivitamin 1 tab PO DAILY 04/12/18 04/12/18 History Allergies Allergy/AdvReac Type Severity Reaction Status Date / Time No Known Drug Allergies Allergy Verified 01/20/18 14:39 Results - Labs Laboratory Last Values WBC 5.6 X10^3/uL (4.5-11.0) 05/24/18 11:05 RBC 3.43 X10^6/uL (4.5-5.9) L 05/24/18 11:05 Hgb 11.7 g/dL (13.5-17.5) L 05/24/18 11:05 Hct 34.7 % (41-53) L 05/24/18 11:05 MCV 101.2 fL (80-100) H 05/24/18 11:05 MCH 34.2 PG (26-34) H 05/24/18 11:05 MCHC 33.7 % (30-36) 05/24/18 11:05 RDW 26.3 % (11.6-14.8) H 05/24/18 11:05 Plt Count 587 X10^3/uL (150-400) H 05/24/18 11:05 Neut % (Auto) 76.7 % (50-75) H 05/24/18 11:05 Lymph % (Auto) 14.9 % (25-40) L 05/24/18 11:05 [place] % (Auto) 6.5 % (3-14) 05/24/18 11:05 Eos % (Auto) 1.2 % (2-4) L 05/24/18 11:05 Baso % (Auto) 0.7 % (0-2) 05/24/18 11:05 Neut # (Auto) 4300 /uL (8263-7653) 05/24/18 11:05 Platelet Estimate Increased on smear 04/26/18 14:55 Plt Morphology Comment Note: 04/26/18 14:55 RBC Morphology Not Reportable 05/10/18 08:32 Polychromasia 1+ H 04/26/18 14:55 Anisocytosis 2+ H 05/10/18 08:32 Macrocytosis 2+ H 05/10/18 08:32 Sodium 142 mmol/L (137-145) 05/24/18 11:05 Potassium 4.7 mmol/L (3.4-5.1) 05/24/18 11:05 Chloride 104 mmol/L (98-107) 05/24/18 11:05 Carbon Dioxide 26 mmol/L (22-32) 05/24/18 11:05 BUN 26 mg/dL (9-20) H 05/24/18 11:05 Creatinine 1.10 mg/dL (0.66-1.25) 05/24/18 11:05 Estimated GFR > 60.0 mL/min (>60) 05/24/18 11:05 BUN/Creatinine Ratio 23.6 (6-22) H 05/24/18 11:05 Glucose 113 mg/dL (80-110) H 05/24/18 11:05 Calcium 9.2 mg/dL (8.4-10.2) 05/24/18 11:05 Total Bilirubin 0.3 mg/dL (0.2-1.3) 05/24/18 11:05 AST 38 IU/L (17-59) 05/24/18 11:05 ALT 39 IU/L (21-72) 05/24/18 11:05 Alkaline Phosphatase 51 U/L (38-126) 05/24/18 11:05 Total Protein 7.6 g/dL (6.3-8.2) 05/24/18 11:05 Albumin 4.6 g/dL (3.5-5.0) 05/24/18 11:05 Globulin 3.0 g/dL (1.7-4.1) 05/24/18 11:05 Albumin/Globulin Ratio 1.5 (1.0-2.8) 05/24/18 11:05 Assessment and Plan (1) Essential thrombocytosis Onset Date: 2017 Problem details: 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 Will continue without any changes. Plan: 1. Continue Hydrea 500 mg bid 2. Lab only visit in 2 weeks: CBC, CMP 3. RTC MD visit in 4 weeks, CBC, CMP (2) Anemia Onset Date: 2017 Problem details: normocytic, likely related to concurrent diagnosis of ET. Stable. Plan: Continue current active surveillance. (3) Peripheral neuropathy Onset Date: 2018 Problem details: tingling of feet and hands. maybe related to concurrent diagnosis of ET. Stable. Plan: Observe for now.
--- NOTE | 2018-05-24 12:30 | P.PNONC_ITS ---
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 Treatment with hydroxyurea 500 mg initiated March 05, 2018. Dose was increased to 500 mg twice daily April 12, 2018 due to persistently elevated platelets. Prior to initiation of Hydrea his platelets were as high as 1,011,000 Patient reports overall he is feeling well with no reportable side effects from the Hydrea. He denies any nausea, vomiting. No headaches. No diarrhea or constipation. Appetite is quite stable. No change in activity tolerance. No skin changes. No headaches. No new pain, no new lumps or bumps. Oncological History Emilee Francisco is a 72-year-old gentleman referred by Dr. Elkins for evaluation and management of anemia and thrombocytosis. On December 25, 2017, he was seen for swollen lymph nodes in his groin. Examination at that time reported small, bilateral inguinal lymph nodes ranging approximately 0.5 cm. His routine lab showed WBC 5600, ANC 3472, hemoglobin 11.0, hematocrit 32.0, MCV 88.3, platelet count 1,011,000. Sedimentation rate 13, CRP less than 0.5, BUN 21, creatinine 1.10, calcium 9.2, glucose 88, B12 717, sodium 144, potassium 5.3, chloride 104, CO2 29. He was also being seen at the time by Dr. Grace in Orthopedics to evaluate burning, neuropathic pain in his feet. He was referred to Dr. Jones and on January 19, 2018 underwent colonoscopy with findings of 4 reportedly benign polyps. He was seen by Dr. Esteban Ortega on January 21, 2018. Lab results from that day showed that the white cell count 7.2, hemoglobin 10.6 , hematocrit 30.7, platelets 117414, ANC 5.0, retic count 1.2%, creatinine level 1.0, LDH 747, iron 83, TIBC 308, saturation 27%, transferrin 230. 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 The patient underwent bone marrow aspiration and biopsy on March 05, 2018. The hematopathology showed hypercellular marrow for age (65% cellular) with marked megakaryocytic hyperplasia, megakaryocytic atypia, and mild myeloid hyperplasia without expanded blasts. There is mild marrow reticulin fibrosis by special stain (MF 1+ out of 3). Flow cytometry showed no abnormal blast or myeloid population identified and no abnormal B- cell or T-cell population identified. Cytogenetic studies showed that the karyotype is normal 46, XY. The patient started hydroxyurea 500 mg once a day on Mar 05, 2018 - Patient Self-Reported Symptoms SR ears, nose, mouth, throat issues: Swollen glands SR Cardiovascular issues: Chest pain, discomfort, tightness SR Genitourinary issues: Change in stream SR Hematologic issues: Swollen lymph nodes Home Medications and Allergies Home Medications Medication Instructions Recorded Confirmed Type hydroxyurea [Hydrea] 500 mg PO DAILY #30 cap 03/04/18 04/26/18 Rx Adult One Daily Multivitamin 1 tab PO DAILY 04/12/18 04/12/18 History Allergies Allergy/AdvReac Type Severity Reaction Status Date / Time No Known Drug Allergies Allergy Verified 01/20/18 14:39 Exam - Constitutional positive no acute distress, positive thin - Routine HEENT Exam Eye: Present: conjunctivae pink. Absent: conjunctival icterus, scleral injection ENT: Present: mucous membranes moist, oropharynx clear - Routine Neck Exam Present: supple. Absent: lymphadenopathy - Routine Chest/Breast/Axilla Exam Axillae: Absent: lymphadenopathy, mass, tenderness - Routine Respiratory Exam Present: Clear to auscultation bilaterally. Absent: rales, rhonchi, wheezes - Routine Cardiovascular Exam Present: RRR, S1, S2. Absent: murmur, gallop, rubs, JVD - Routine Abdominal Exam Present: soft, normoactive bowel sounds. Absent: tenderness, distended, organomegaly, mass - Routine Extremities Exam Absent: edema, calf tenderness - Routine Skin Exam Present: intact, normal turgor. Absent: cyanosis, rash - Routine Neurological Exam Present: alert, oriented X3 - Routine Psychiatric Exam Present: normal affect Results - Labs Laboratory Last Values WBC 5.6 X10^3/uL (4.5-11.0) 05/24/18 11:05 RBC 3.43 X10^6/uL (4.5-5.9) L 05/24/18 11:05 Hgb 11.7 g/dL (13.5-17.5) L 05/24/18 11:05 Hct 34.7 % (41-53) L 05/24/18 11:05 MCV 101.2 fL (80-100) H 05/24/18 11:05 MCH 34.2 PG (26-34) H 05/24/18 11:05 MCHC 33.7 % (30-36) 05/24/18 11:05 RDW 26.3 % (11.6-14.8) H 05/24/18 11:05 Plt Count 587 X10^3/uL (150-400) H 05/24/18 11:05 Neut % (Auto) 76.7 % (50-75) H 05/24/18 11:05 Lymph % (Auto) 14.9 % (25-40) L 05/24/18 11:05 [place] % (Auto) 6.5 % (3-14) 05/24/18 11:05 Eos % (Auto) 1.2 % (2-4) L 05/24/18 11:05 Baso % (Auto) 0.7 % (0-2) 05/24/18 11:05 Neut # (Auto) 4300 /uL (5420-5031) 05/24/18 11:05 Platelet Estimate Increased on smear 04/26/18 14:55 Plt Morphology Comment Note: 04/26/18 14:55 RBC Morphology See below 05/24/18 11:05 Polychromasia 1+ H 04/26/18 14:55 Poikilocytosis 1+ H 05/24/18 11:05 Anisocytosis 3+ H 05/24/18 11:05 Macrocytosis 2+ H 05/10/18 08:32 Sodium 142 mmol/L (137-145) 05/24/18 11:05 Potassium 4.7 mmol/L (3.4-5.1) 05/24/18 11:05 Chloride 104 mmol/L (98-107) 05/24/18 11:05 Carbon Dioxide 26 mmol/L (22-32) 05/24/18 11:05 BUN 26 mg/dL (9-20) H 05/24/18 11:05 Creatinine 1.10 mg/dL (0.66-1.25) 05/24/18 11:05 Estimated GFR > 60.0 mL/min (>60) 05/24/18 11:05 BUN/Creatinine Ratio 23.6 (6-22) H 05/24/18 11:05 Glucose 113 mg/dL (80-110) H 05/24/18 11:05 Calcium 9.2 mg/dL (8.4-10.2) 05/24/18 11:05 Total Bilirubin 0.3 mg/dL (0.2-1.3) 05/24/18 11:05 AST 38 IU/L (17-59) 05/24/18 11:05 ALT 39 IU/L (21-72) 05/24/18 11:05 Alkaline Phosphatase 51 U/L (38-126) 05/24/18 11:05 Total Protein 7.6 g/dL (6.3-8.2) 05/24/18 11:05 Albumin 4.6 g/dL (3.5-5.0) 05/24/18 11:05 Globulin 3.0 g/dL (1.7-4.1) 05/24/18 11:05 Albumin/Globulin Ratio 1.5 (1.0-2.8) 05/24/18 11:05 Assessment and Plan (1) Essential thrombocytosis Onset Date: 2017 Problem details: JACK2 V617F mutation positive With JAK2 V617F mutation now taking hydrea 500mg BID. Platelets today have jumped a bit however at 587,000. Previously they were 550, 000. Pt is without headache, vision changes, lightheadedness or dizziness. No skin changes. No abdominal bloating, no early satiety. Discussed with the patient we will continue current plan of care. Pt understands if platelets cont to climb and remain persistently >550,000 we will likely increase hydrea again. Pt verbalizes understanding. Plan: 1. Continue Hydrea 500 mg bid 2. Lab only visit in 2 weeks: CBC, CMP 3. RTC provider visit in 4 weeks, CBC, CMP (2) Anemia Onset Date: 2018 Problem details: normocytic, likely related to concurrent diagnosis of ET. Stable with hemoglobin 11.7 hematocrit 34.7. Plan: Continue current active surveillance. (3) Peripheral neuropathy Onset Date: 2018 Problem details: tingling of feet and hands. maybe related to concurrent diagnosis of ET. Stable. Plan: Observe for now.
--- NOTE | 2018-06-07 16:17 | ONC.SCHED ---
PATIENT WAS SCHEDULED FOR LABS PRIOR TO VISIT 06/18/18 BUT THEY DID NOT SHOW. I CALLED PT. TO GET LAB RESCHEDULED BUT GOT VOICEMAIL. I LEFT A MSG.
--- NOTE | 2018-06-21 08:51 | P.PNONC_ITS ---
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 Treatment with hydroxy urea 500 mg daily initiated March 05, 2018. Dose was increased to 500 mg twice daily April 12, 2018 due to persistently elevated platelets. Prior to initiation of Hydrea his platelets were as high as 1,011,000. Pt presents today for routine scheduled triage. He states overall he is feeling well with no reportable side effects from the Hydrea. He denies nausea , vomiting. No headaches. No diarrhea or constipation. No skin changes. Appetite is quite stable. No change in activity tolerance. No new pain, no new lumps or bumps. - Patient Self-Reported Symptoms SR ears, nose, mouth, throat issues: Swollen glands SR Cardiovascular issues: Chest pain, discomfort, tightness SR Genitourinary issues: Change in stream SR Hematologic issues: Swollen lymph nodes Home Medications and Allergies Home Medications Medication Instructions Recorded Confirmed Type hydroxyurea [Hydrea] 500 mg PO DAILY #30 cap 03/04/18 04/26/18 Rx Adult One Daily Multivitamin 1 tab PO DAILY 04/12/18 04/12/18 History Allergies Allergy/AdvReac Type Severity Reaction Status Date / Time No Known Drug Allergies Allergy Verified 01/20/18 14:39 Results - Labs Laboratory Last Values WBC 5.6 X10^3/uL (4.5-11.0) 05/24/18 11:05 RBC 3.43 X10^6/uL (4.5-5.9) L 05/24/18 11:05 Hgb 11.7 g/dL (13.5-17.5) L 05/24/18 11:05 Hct 34.7 % (41-53) L 05/24/18 11:05 MCV 101.2 fL (80-100) H 05/24/18 11:05 MCH 34.2 PG (26-34) H 05/24/18 11:05 MCHC 33.7 % (30-36) 05/24/18 11:05 RDW 26.3 % (11.6-14.8) H 05/24/18 11:05 Plt Count 587 X10^3/uL (150-400) H 05/24/18 11:05 Neut % (Auto) 76.7 % (50-75) H 05/24/18 11:05 Lymph % (Auto) 14.9 % (25-40) L 05/24/18 11:05 [place] % (Auto) 6.5 % (3-14) 05/24/18 11:05 Eos % (Auto) 1.2 % (2-4) L 05/24/18 11:05 Baso % (Auto) 0.7 % (0-2) 05/24/18 11:05 Neut # (Auto) 4300 /uL (8408-6189) 05/24/18 11:05 Platelet Estimate Increased on smear 04/26/18 14:55 Plt Morphology Comment Note: 04/26/18 14:55 RBC Morphology See below 05/24/18 11:05 Polychromasia 1+ H 04/26/18 14:55 Poikilocytosis 1+ H 05/24/18 11:05 Anisocytosis 3+ H 05/24/18 11:05 Macrocytosis 2+ H 05/10/18 08:32 Sodium 142 mmol/L (137-145) 05/24/18 11:05 Potassium 4.7 mmol/L (3.4-5.1) 05/24/18 11:05 Chloride 104 mmol/L (98-107) 05/24/18 11:05 Carbon Dioxide 26 mmol/L (22-32) 05/24/18 11:05 BUN 26 mg/dL (9-20) H 05/24/18 11:05 Creatinine 1.10 mg/dL (0.66-1.25) 05/24/18 11:05 Estimated GFR > 60.0 mL/min (>60) 05/24/18 11:05 BUN/Creatinine Ratio 23.6 (6-22) H 05/24/18 11:05 Glucose 113 mg/dL (80-110) H 05/24/18 11:05 Calcium 9.2 mg/dL (8.4-10.2) 05/24/18 11:05 Total Bilirubin 0.3 mg/dL (0.2-1.3) 05/24/18 11:05 AST 38 IU/L (17-59) 05/24/18 11:05 ALT 39 IU/L (21-72) 05/24/18 11:05 Alkaline Phosphatase 51 U/L (38-126) 05/24/18 11:05 Total Protein 7.6 g/dL (6.3-8.2) 05/24/18 11:05 Albumin 4.6 g/dL (3.5-5.0) 05/24/18 11:05 Globulin 3.0 g/dL (1.7-4.1) 05/24/18 11:05 Albumin/Globulin Ratio 1.5 (1.0-2.8) 05/24/18 11:05 Assessment and Plan (1) Essential thrombocytosis Onset Date: 2017 Problem details: JACK2 V617F mutation positive (2) Anemia Onset Date: 2018 Problem details: normocytic, likely related to concurrent diagnosis of ET. (3) Peripheral neuropathy Onset Date: 2018 Problem details: tingling of feet and hands. maybe related to concurrent diagnosis of ET.
[2018-06-21 14:19] LABS: Basophils Percent Auto 0.8 % (0-2); Eosinophils Percent Auto 2.1 % (2-4); Hematocrit 34.1 % (41-53); Hemoglobin 11.9 g/dL (13.5-17.5); Lymphocytes Percent Auto 21.8 % (25-40); Mean Corpuscular HGB Conc 34.9 % (30-36); Mean Corpuscular Hemoglobin 37.5 PG (26-34); Mean Corpuscular Volume 107.2 fL (80-100); Monocytes Percent Auto 4.3 % (3-14); Neutrophils Absolute Auto 3100 /uL (1500-7000); Platelet Count 477 X10^3/uL (150-400); Red Blood Cell Count 3.18 X10^6/uL (4.5-5.9); Red Cell Distribution Width 25.2 % (11.6-14.8); White Blood Cell Count 4.4 X10^3/uL (4.5-11.0)
[2018-06-21 14:21] LABS: Add Manual Diff / Slide Review SLIDE REVIEW
[2018-06-21 14:22] LABS: Alanine Aminotransferase 38 IU/L (21-72); Albumin 4.6 g/dL (3.5-5.0); Albumin Globulin Ratio 1.6 (1.0-2.8); Alkaline Phosphatase 55 U/L (38-126); Aspartate Aminotransferase 36 IU/L (17-59); BUN Creatinine Ratio 17.3 (6-22); Bilirubin Total 0.4 mg/dL (0.2-1.3); Blood Urea Nitrogen 19 mg/dL (9-20); Calcium 8.9 mg/dL (8.4-10.2); Carbon Dioxide 25 mmol/L (22-32); Chloride 105 mmol/L (98-107); Estimated Glomerular Filt Rate > 60.0 mL/min (>60); Globulin 2.9 g/dL (1.7-4.1); Glucose 103 mg/dL (80-110); HEMOLYSIS < 15 (0-50); Potassium 4.2 mmol/L (3.4-5.1); Sodium 141 mmol/L (137-145); Total Protein 7.5 g/dL (6.3-8.2)
[2018-06-21 14:54] VITALS: BP 143/78; PULSE 68; RESP 18; TEMP 36.5; O2SAT 98
[2018-06-21 14:55] LABS: Anisocytosis 3+; Hypersegmented Neutrophils 1+; Macrocytosis 3+; Schistocytes 1+; Tear Drop Cells 1+
--- NOTE | 2018-06-21 16:08 | P.PNONC_ITS ---
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 Treatment with hydroxy urea 500 mg once daily initiated March 05, 2018. Dose was increased to 500 mg twice daily April 12, 2018 due to persistently elevated platelets. Prior to initiation of Hydrea his platelets were as high as 1,011,000. Pt presents today reprting I feel fine. He feels as though he is tolerating Hydrea without significant side effects. He denies nausea, vomiting. No headaches. No chest pain. No diarrhea or constipation. Appetite is quite stable, weight is stable. No change in activity tolerance. No skin changes. No new pain, no new lumps or bumps. Oncologic History: 72-year-old gentleman referred by Dr. Elkins for evaluation and management of anemia and thrombocytosis. December 25, 2017 he was seen for swollen lymph nodes in his groin. Examination at that time reported small, bilateral inguinal lymph nodes ranging approximately 0.5 cm. His routine labs demonstrated WBC 5600, ANC 3472, hemoglobin 11.0, hematocrit 32.0, MCV 88.3, platelet count 1,011,000. Sedimentation rate 13 CRP less than 0.5, BUN 21 creatinine 1.10, calcium 9.2, glucose 88, B12 717, sodium 144, potassium 5.3. He was also seen at that time by orthopedist Dr. Grace to evaluate burning, neuropathic pain in his feet. He was then referred to surgeon Dr. Jones who on January 19 performed colonoscopy with findings of 4 reportedly benign polyps. Patient was then seen by oncologist Dr. Ortega on January 21, 2018. Lab results that visit demonstrated white cell 7.2, hemoglobin 10.6, hematocrit 30.7, platelets 555201, ANC 5.0, reticulocyte 1.2%, creatinine 1.0, LDH 747, iron 83, TIBC 308, saturation 27%, transferrin 230. JAK2 V617F mutation was positive. Patient subsequently underwent bone marrow aspiration February 23, 2018. The hemapathology demonstrated hypercellular marrow for age (65% cellular) with Marked megakaryocytic hyperplasia, megakaryocytic atypia and mild myeloid hyperplasia without expanded blasts. There was mild marrow reticulin fibrosis by special stain (MF 1+ out of 3). Flow cytometry demonstrated no abnormal blast or myelo topically [place] also no abnormal B-cell or T-cell population identified. Cytogenic studies demonstrated the karyotype is normal 40 X, xy. - Patient Self-Reported Symptoms SR ears, nose, mouth, throat issues: Swollen glands SR Cardiovascular issues: Chest pain, discomfort, tightness SR Genitourinary issues: Change in stream SR Hematologic issues: Swollen lymph nodes Home Medications and Allergies Home Medications Medication Instructions Recorded Confirmed Type Adult One Daily Multivitamin 1 tab PO DAILY 04/12/18 04/12/18 History hydroxyurea 500 mg PO BID #60 cap 06/21/18 Rx Allergies Allergy/AdvReac Type Severity Reaction Status Date / Time No Known Drug Allergies Allergy Verified 01/20/18 14:39 Exam - Constitutional positive no acute distress - Routine HEENT Exam Eye: Present: conjunctivae pink. Absent: conjunctival icterus, scleral injection ENT: Present: mucous membranes moist, oropharynx clear - Routine Neck Exam Present: supple. Absent: lymphadenopathy - Routine Chest/Breast/Axilla Exam Axillae: Absent: lymphadenopathy, mass, tenderness - Routine Respiratory Exam Present: Clear to auscultation bilaterally. Absent: rales, rhonchi, wheezes - Routine Cardiovascular Exam Present: RRR, S1, S2. Absent: murmur, gallop, rubs, JVD - Routine Abdominal Exam Present: soft, normoactive bowel sounds. Absent: tenderness, distended, organomegaly - Routine Extremities Exam Absent: cyanosis, edema, calf tenderness - Routine Back/Spine Exam Back/Spine: Absent: erythema - Routine Skin Exam Present: intact, normal turgor. Absent: cyanosis, erythema, pallor, mottling, petechiae, rash - Routine Neurological Exam Present: alert, oriented X3 - Routine Psychiatric Exam Present: normal affect Results - Labs Laboratory Last Values WBC 4.4 X10^3/uL (4.5-11.0) L 06/21/18 13:59 RBC 3.18 X10^6/uL (4.5-5.9) L 06/21/18 13:59 Hgb 11.9 g/dL (13.5-17.5) L 06/21/18 13:59 Hct 34.1 % (41-53) L 06/21/18 13:59 MCV 107.2 fL (80-100) H 06/21/18 13:59 MCH 37.5 PG (26-34) H 06/21/18 13:59 MCHC 34.9 % (30-36) 06/21/18 13:59 RDW 25.2 % (11.6-14.8) H 06/21/18 13:59 Plt Count 477 X10^3/uL (150-400) H 06/21/18 13:59 Neut % (Auto) 71.0 % (50-75) 06/21/18 13:59 Lymph % (Auto) 21.8 % (25-40) L 06/21/18 13:59 [place] % (Auto) 4.3 % (3-14) 06/21/18 13:59 Eos % (Auto) 2.1 % (2-4) 06/21/18 13:59 Baso % (Auto) 0.8 % (0-2) 06/21/18 13:59 Neut # (Auto) 3100 /uL (9680-1263) 06/21/18 13:59 Hypersegmented Neuts 1+ 06/21/18 13:59 Platelet Estimate Increased on smear 04/26/18 14:55 Plt Morphology Comment Note: 04/26/18 14:55 RBC Morphology See below 05/24/18 11:05 Polychromasia 1+ H 04/26/18 14:55 Poikilocytosis 1+ H 05/24/18 11:05 Anisocytosis 3+ H 06/21/18 13:59 Macrocytosis 3+ H 06/21/18 13:59 Tear Drop Cells 1+ H 06/21/18 13:59 Schistocytes 1+ H 06/21/18 13:59 Sodium 141 mmol/L (137-145) 06/21/18 13:59 Potassium 4.2 mmol/L (3.4-5.1) 06/21/18 13:59 Chloride 105 mmol/L (98-107) 06/21/18 13:59 Carbon Dioxide 25 mmol/L (22-32) 06/21/18 13:59 BUN 19 mg/dL (9-20) 06/21/18 13:59 Creatinine 1.10 mg/dL (0.66-1.25) 06/21/18 13:59 Estimated GFR > 60.0 mL/min (>60) 06/21/18 13:59 BUN/Creatinine Ratio 17.3 (6-22) 06/21/18 13:59 Glucose 103 mg/dL (80-110) 06/21/18 13:59 Calcium 8.9 mg/dL (8.4-10.2) 06/21/18 13:59 Total Bilirubin 0.4 mg/dL (0.2-1.3) 06/21/18 13:59 AST 36 IU/L (17-59) 06/21/18 13:59 ALT 38 IU/L (21-72) 06/21/18 13:59 Alkaline Phosphatase 55 U/L (38-126) 06/21/18 13:59 Total Protein 7.5 g/dL (6.3-8.2) 06/21/18 13:59 Albumin 4.6 g/dL (3.5-5.0) 06/21/18 13:59 Globulin 2.9 g/dL (1.7-4.1) 06/21/18 13:59 Albumin/Globulin Ratio 1.6 (1.0-2.8) 06/21/18 13:59 Assessment and Plan (1) Essential thrombocytosis Onset Date: 2017 Problem details: JACK2 V617F mutation positive [age] year old male with recently confirmed essential thrombocytosis, JAK2 V617F mutation positive. Treatment with hydroxyurea was initiated March 05, 2018 at a dose of 500 mg once daily. Dose was increased April 12, 2018 to 500 mg twice daily due to persistently elevated platelets. Today CBC demonstrates platelets [id number] which is an improvement. White count 4.4, hemoglobin 11.9, hematocrit 34.1. Overall patient is feeling quite well without reportable side effects. The burning and nerve pain in his hands and feet have resolved. No headaches. No dizziness or lightheadedness. No abdominal bloating, early satiety. No skin changes. I will have the patient continue Hydrea 500 mg twice daily, return to clinic in 2 weeks time for nurse visit CBC. Provider visit in 4 weeks also with CBC, CMP. Patient verbalizes understanding. (2) Anemia Onset Date: 2017 Problem details: normocytic, likely related to concurrent diagnosis of ET. Normocytic anemia. Stable. Likely due to stage 3 chronic kidney disease as well as essential thrombocytosis. We will continue to monitor. (3) Peripheral neuropathy Onset Date: 2017 Problem details: tingling of feet and hands. maybe related to concurrent diagnosis of ET. Patient reports numbness, tingling, pain in hands and feet have resolved. We will continue to monitor.
[2018-07-05 08:33] LABS: Add Manual Diff / Slide Review NO; Basophils Absolute Auto 0 /uL (0-100); Basophils Percent Auto 1.1 % (0-2); Eosinophils Absolute Auto 0 /uL (0-450); Eosinophils Percent Auto 1.4 % (2-4); Hematocrit 34.8 % (41-53); Hemoglobin 11.7 g/dL (13.5-17.5); Lymphocytes Absolute Auto 700 /uL (1100-4500); Lymphocytes Percent Auto 21.3 % (25-40); Mean Corpuscular HGB Conc 33.6 % (30-36); Mean Corpuscular Hemoglobin 36.8 PG (26-34); Mean Corpuscular Volume 109.7 fL (80-100); Monocytes Absolute Auto 300 /uL (0-900); Neutrophils Absolute Auto 2200 /uL (1500-7000); Neutrophils Percent Auto 68.2 % (50-75); Platelet Count 429 X10^3/uL (150-400); Red Blood Cell Count 3.18 X10^6/uL (4.5-5.9); Red Cell Distribution Width 23.1 % (11.6-14.8); White Blood Cell Count 3.2 X10^3/uL (4.5-11.0)
[2018-07-05 09:29] LABS: Anisocytosis 3+; Poikilocytosis 1+
[2018-07-19 10:58] LABS: Add Manual Diff / Slide Review NO; Basophils Absolute Auto 0 /uL (0-100); Basophils Percent Auto 0.9 % (0-2); Eosinophils Absolute Auto 100 /uL (0-450); Eosinophils Percent Auto 1.8 % (2-4); Hematocrit 35.1 % (41-53); Hemoglobin 11.8 g/dL (13.5-17.5); Lymphocytes Absolute Auto 600 /uL (1100-4500); Lymphocytes Percent Auto 18.6 % (25-40); Mean Corpuscular HGB Conc 33.7 % (30-36); Mean Corpuscular Hemoglobin 37.9 PG (26-34); Mean Corpuscular Volume 112.6 fL (80-100); Monocytes Absolute Auto 200 /uL (0-900); Monocytes Percent Auto 5.3 % (3-14); Neutrophils Absolute Auto 2300 /uL (1500-7000); Neutrophils Percent Auto 73.4 % (50-75); Platelet Count 355 X10^3/uL (150-400); Red Blood Cell Count 3.12 X10^6/uL (4.5-5.9); Red Cell Distribution Width 21.5 % (11.6-14.8); White Blood Cell Count 3.2 X10^3/uL (4.5-11.0)
[2018-07-19 11:08] LABS: Alanine Aminotransferase 38 IU/L (21-72); Albumin 4.5 g/dL (3.5-5.0); Albumin Globulin Ratio 1.5 (1.0-2.8); Alkaline Phosphatase 51 U/L (38-126); Aspartate Aminotransferase 36 IU/L (17-59); BUN Creatinine Ratio 20.9 (6-22); Bilirubin Total 0.4 mg/dL (0.2-1.3); Blood Urea Nitrogen 23 mg/dL (9-20); Carbon Dioxide 25 mmol/L (22-32); Chloride 104 mmol/L (98-107); Estimated Glomerular Filt Rate > 60.0 mL/min (>60); Globulin 3.1 g/dL (1.7-4.1); Glucose 107 mg/dL (80-110); HEMOLYSIS < 15 (0-50); Potassium 4.5 mmol/L (3.4-5.1); Sodium 139 mmol/L (137-145); Total Protein 7.6 g/dL (6.3-8.2)
[2018-07-19 11:16] VITALS: BP 136/74; PULSE 60; RESP 19; TEMP 36.6; O2SAT 100
--- NOTE | 2018-07-19 11:40 | ONC.PN ---
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 Treatment with hydroxy urea 500 mg once daily initiated March 05, 2018. Dose was increased to 500 mg twice daily April 12, 2018 due to persistently elevated platelets. Prior to initiation of Hydrea, his platelets were as high as 1,011,000. He presents today for scheduled follow up visit. Overall, he has been doing well. He does report that the food starts tasting funny. He said it is just little bit different than it used to be. No fever, no chills, no shortness of breath, no chest pain, no nausea and no vomiting, no abdominal pain. No rashes. No ulcers in the legs. Oncologic History: 73-year-old gentleman referred by Dr. Elkins for evaluation and management of anemia and thrombocytosis. On December 25, 2017 he was seen for swollen lymph nodes in his groin. Examination at that time reported small, bilateral inguinal lymph nodes ranging approximately 0.5 cm. His routine labs demonstrated WBC 5600, ANC 3472, hemoglobin 11.0, hematocrit 32.0, MCV 88.3, and platelet count 1,011,000. Sedimentation rate 13, CRP < 0.5, BUN 21, creatinine 1.10, calcium 9.2, glucose 88, B12 717, sodium 144, and potassium 5.3. He was also seen at that time by ortho for burning, neuropathic pain in his feet. He was then referred to surgeon Dr. Jones who on January 19, 2018 performed colonoscopy with findings of 4 reportedly benign polyps. Patient was then seen by oncologist Dr. Ortega on January 21, 2018. Lab results that visit demonstrated white cell 7.2, hemoglobin 10.6, hematocrit 30.7, platelets [id number], ANC 5.0, reticulocyte 1.2%, creatinine 1.0, LDH 747, iron 83, TIBC 308, saturation 27%, transferrin 230. JAK2 V617F mutation was positive. Patient subsequently underwent bone marrow aspiration February 23, 2018. The hematopathology demonstrated hypercellular marrow for age (65% cellular) with marked megakaryocytic hyperplasia, megakaryocytic atypia and mild myeloid hyperplasia without expanded blasts. There was mild marrow reticulin fibrosis by special stain (MF 1+ out of 3). Flow cytometry demonstrated no abnormal blast or myeloid cell population identified, and no abnormal B-cell or T-cell population identified. Cytogenic studies demonstrated the karyotype is normal 46 XY[20]. - Patient Self-Reported Symptoms SR ears, nose, mouth, throat issues: Swollen glands SR Cardiovascular issues: Chest pain, discomfort, tightness SR Genitourinary issues: Change in stream SR Hematologic issues: Swollen lymph nodes - Additional ROS All systems PM: reviewed and no additional remarkable complaints except as stated Home Medications and Allergies Home Medications Medication Instructions Recorded Confirmed Type hydroxyurea 500 mg PO BID #60 cap 06/21/18 07/19/18 Rx Allergies Allergy/AdvReac Type Severity Reaction Status Date / Time No Known Drug Allergies Allergy Verified 01/20/18 14:39 Exam Vital signs: Last Vital Signs Temp 97.9 F 07/19/18 11:16 Pulse 60 07/19/18 11:16 Resp 19 07/19/18 11:16 BP 136/74 07/19/18 11:16 Pulse Ox 100 07/19/18 11:16 ECOG 1 Narrative: Constitutional: Well developed, well nourished, not in any acute respiratory distress, average body habitus, well groomed, pleasant and cooperative. HEENT: Normocephalic atraumatic. Extraocular muscle movement intact. Pupils are round, equal and reactive to light and accommodations. Anicteric sclera. No hearing difficulty; Oral mucus membrane moist and without ulcers. Neck: Supple, symmetrical, and tracheal midline; No palpable thyromegaly and no palpable lymph nodes. Respiratory: No use of accessory muscles. Clear to auscultation, and no wheezes or rales or rubs. Cardiovascular: Regular rate and rhythm, S1 and S2 normal, no murmurs gallops or rubs. No JVD. Abdomen: Soft, nontender, non-distended, bowel sounds normal, no palpable organomegaly, no hernia, no palpable masses. Lower extremities: No pitting edema of lower extremities. Lymphatic: no palpable lymph nodes in the neck, axillae, or groins. Musculoskeletal: normal gait and station, no clubbing, no cyanosis, no pitting edema. Skin: no rashes, no ulcers, no petechiae Neurological: Awake and alert and oriented x3. CN II-XII grossly intact. No focal motor or sensory deficit. Psychiatric: Good judgment, good insight, normal affect, normal thought process, cooperative, no depression, no anxiety. Results - Labs Laboratory Last Values WBC 3.2 X10^3/uL (4.5-11.0) L 07/19/18 10:44 RBC 3.12 X10^6/uL (4.5-5.9) L 07/19/18 10:44 Hgb 11.8 g/dL (13.5-17.5) L 07/19/18 10:44 Hct 35.1 % (41-53) L 07/19/18 10:44 MCV 112.6 fL (80-100) H 07/19/18 10:44 MCH 37.9 PG (26-34) H 07/19/18 10:44 MCHC 33.7 % (30-36) 07/19/18 10:44 RDW 21.5 % (11.6-14.8) H 07/19/18 10:44 Plt Count 355 X10^3/uL (150-400) 07/19/18 10:44 Neut % (Auto) 73.4 % (50-75) 07/19/18 10:44 Lymph % (Auto) 18.6 % (25-40) L 07/19/18 10:44 [place] % (Auto) 5.3 % (3-14) 07/19/18 10:44 Eos % (Auto) 1.8 % (2-4) L 07/19/18 10:44 Baso % (Auto) 0.9 % (0-2) 07/19/18 10:44 Neut # (Auto) 2300 /uL (7573-9495) 07/19/18 10:44 Lymph # (Auto) 600 /uL (9626-6789) L 07/19/18 10:44 [place] # (Auto) 200 /uL (0-900) 07/19/18 10:44 Eos # (Auto) 100 /uL (0-450) 07/19/18 10:44 Baso # (Auto) 0 /uL (0-100) 07/19/18 10:44 Hypersegmented Neuts 1+ 06/21/18 13:59 Platelet Estimate Increased on smear 04/26/18 14:55 Plt Morphology Comment Note: 04/26/18 14:55 RBC Morphology Not Reportable 07/05/18 08:22 Polychromasia 1+ H 04/26/18 14:55 Poikilocytosis 1+ H 07/05/18 08:22 Anisocytosis 3+ H 07/05/18 08:22 Macrocytosis 3+ H 06/21/18 13:59 Tear Drop Cells 1+ H 06/21/18 13:59 Schistocytes 1+ H 06/21/18 13:59 Sodium 139 mmol/L (137-145) 07/19/18 10:44 Potassium 4.5 mmol/L (3.4-5.1) 07/19/18 10:44 Chloride 104 mmol/L (98-107) 07/19/18 10:44 Carbon Dioxide 25 mmol/L (22-32) 07/19/18 10:44 BUN 23 mg/dL (9-20) H 07/19/18 10:44 Creatinine 1.10 mg/dL (0.66-1.25) 07/19/18 10:44 Estimated GFR > 60.0 mL/min (>60) 07/19/18 10:44 BUN/Creatinine Ratio 20.9 (6-22) 07/19/18 10:44 Glucose 107 mg/dL (80-110) 07/19/18 10:44 Calcium 9.0 mg/dL (8.4-10.2) 07/19/18 10:44 Total Bilirubin 0.4 mg/dL (0.2-1.3) 07/19/18 10:44 AST 36 IU/L (17-59) 07/19/18 10:44 ALT 38 IU/L (21-72) 07/19/18 10:44 Alkaline Phosphatase 51 U/L (38-126) 07/19/18 10:44 Total Protein 7.6 g/dL (6.3-8.2) 07/19/18 10:44 Albumin 4.5 g/dL (3.5-5.0) 07/19/18 10:44 Globulin 3.1 g/dL (1.7-4.1) 07/19/18 10:44 Albumin/Globulin Ratio 1.5 (1.0-2.8) 07/19/18 10:44 Assessment and Plan (1) Essential thrombocytosis Problem details: Essential thrombocytosis, 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 Assessment: I reviewed the laboratory tests with the patient. Patient's platelet counts have been stable within the normal range. Patient has mild grade 1 leukopenia and mild anemia but has been stable without any clinical symptoms. I will continue current treatment without any changes. Plan: 1. Continue Hydrea 500 mg bid 2. RTC in 4 weeks, repeat CBC, CMP, LDH (2) Anemia Problem details: normocytic, likely related to concurrent diagnosis of ET, hydrea use as well as CKD. Assessment and Plan: Stable, grade 1. We will continue to monitor. Transfusion threshold: H/H 02/12. (3) Peripheral neuropathy Problem details: tingling of feet and hands. maybe related to concurrent diagnosis of ET. Assessment and Plan: Patient reports numbness, tingling, pain in hands and feet have resolved. We will continue to monitor.
--- NOTE | 2018-07-19 11:46 | P.PNONC_ITS ---
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 Treatment with hydroxy urea 500 mg once daily initiated March 05, 2018. Dose was increased to 500 mg twice daily April 12, 2018 due to persistently elevated platelets. Prior to initiation of Hydrea , his platelets were as high as 1,011,000. He presents today for scheduled follow up visit. Overall, he has been doing well. He does report that the food starts tasting funny. He said it is just little bit different than it used to be. No fever, no chills, no shortness of breath, no chest pain, no nausea and no vomiting, no abdominal pain. No rashes. No ulcers in the legs. Oncologic History: 73-year-old gentleman referred by Dr. Elkins for evaluation and management of anemia and thrombocytosis. On December 25, 2017 he was seen for swollen lymph nodes in his groin. Examination at that time reported small, bilateral inguinal lymph nodes ranging approximately 0.5 cm. His routine labs demonstrated WBC 5600 , ANC 3472, hemoglobin 11.0, hematocrit 32.0, MCV 88.3, and platelet count 1,011 ,000. Sedimentation rate 13, CRP < 0.5, BUN 21, creatinine 1.10, calcium 9.2, glucose 88, B12 717, sodium 144, and potassium 5.3. He was also seen at that time by ortho for burning, neuropathic pain in his feet. He was then referred to surgeon Dr. Jones who on January 19, 2018 performed colonoscopy with findings of 4 reportedly benign polyps. Patient was then seen by oncologist Dr. Ortega on January 21, 2018. Lab results that visit demonstrated white cell 7.2 , hemoglobin 10.6, hematocrit 30.7, platelets 202260, ANC 5.0, reticulocyte 1.2% , creatinine 1.0, LDH 747, iron 83, TIBC 308, saturation 27%, transferrin 230. JAK2 V617F mutation was positive. Patient subsequently underwent bone marrow aspiration February 23, 2018. The hematopathology demonstrated hypercellular marrow for age (65% cellular) with marked megakaryocytic hyperplasia, megakaryocytic atypia and mild myeloid hyperplasia without expanded blasts. There was mild marrow reticulin fibrosis by special stain (MF 1+ out of 3). Flow cytometry demonstrated no abnormal blast or myeloid cell population identified, and no abnormal B-cell or T-cell population identified. Cytogenic studies demonstrated the karyotype is normal 46 XY[20]. - Patient Self-Reported Symptoms SR ears, nose, mouth, throat issues: Swollen glands SR Cardiovascular issues: Chest pain, discomfort, tightness SR Genitourinary issues: Change in stream SR Hematologic issues: Swollen lymph nodes - Additional ROS All systems PM: reviewed and no additional remarkable complaints except as stated Home Medications and Allergies Home Medications Medication Instructions Recorded Confirmed Type hydroxyurea 500 mg PO BID #60 cap 06/21/18 07/19/18 Rx Allergies Allergy/AdvReac Type Severity Reaction Status Date / Time No Known Drug Allergies Allergy Verified 01/20/18 14:39 Exam Vital signs: Last Vital Signs Temp 97.9 F 07/19/18 11:16 Pulse 60 07/19/18 11:16 Resp 19 07/19/18 11:16 BP 136/74 07/19/18 11:16 Pulse Ox 100 07/19/18 11:16 ECOG 1 Narrative: Constitutional: Well developed, well nourished, not in any acute respiratory distress, average body habitus, well groomed, pleasant and cooperative. HEENT: Normocephalic atraumatic. Extraocular muscle movement intact. Pupils are round, equal and reactive to light and accommodations. Anicteric sclera. No hearing difficulty; Oral mucus membrane moist and without ulcers. Neck: Supple, symmetrical, and tracheal midline; No palpable thyromegaly and no palpable lymph nodes. Respiratory: No use of accessory muscles. Clear to auscultation, and no wheezes or rales or rubs. Cardiovascular: Regular rate and rhythm, S1 and S2 normal, no murmurs gallops or rubs. No JVD. Abdomen: Soft, nontender, non-distended, bowel sounds normal, no palpable organomegaly, no hernia, no palpable masses. Lower extremities: No pitting edema of lower extremities. Lymphatic: no palpable lymph nodes in the neck, axillae, or groins. Musculoskeletal: normal gait and station, no clubbing, no cyanosis, no pitting edema. Skin: no rashes, no ulcers, no petechiae Neurological: Awake and alert and oriented x3. CN II-XII grossly intact. No focal motor or sensory deficit. Psychiatric: Good judgment, good insight, normal affect, normal thought process , cooperative, no depression, no anxiety. Results - Labs Laboratory Last Values WBC 3.2 X10^3/uL (4.5-11.0) L 07/19/18 10:44 RBC 3.12 X10^6/uL (4.5-5.9) L 07/19/18 10:44 Hgb 11.8 g/dL (13.5-17.5) L 07/19/18 10:44 Hct 35.1 % (41-53) L 07/19/18 10:44 MCV 112.6 fL (80-100) H 07/19/18 10:44 MCH 37.9 PG (26-34) H 07/19/18 10:44 MCHC 33.7 % (30-36) 07/19/18 10:44 RDW 21.5 % (11.6-14.8) H 07/19/18 10:44 Plt Count 355 X10^3/uL (150-400) 07/19/18 10:44 Neut % (Auto) 73.4 % (50-75) 07/19/18 10:44 Lymph % (Auto) 18.6 % (25-40) L 07/19/18 10:44 [place] % (Auto) 5.3 % (3-14) 07/19/18 10:44 Eos % (Auto) 1.8 % (2-4) L 07/19/18 10:44 Baso % (Auto) 0.9 % (0-2) 07/19/18 10:44 Neut # (Auto) 2300 /uL (2716-6131) 07/19/18 10:44 Lymph # (Auto) 600 /uL (7249-6498) L 07/19/18 10:44 [place] # (Auto) 200 /uL (0-900) 07/19/18 10:44 Eos # (Auto) 100 /uL (0-450) 07/19/18 10:44 Baso # (Auto) 0 /uL (0-100) 07/19/18 10:44 Hypersegmented Neuts 1+ 06/21/18 13:59 Platelet Estimate Increased on smear 04/26/18 14:55 Plt Morphology Comment Note: 04/26/18 14:55 RBC Morphology Not Reportable 07/05/18 08:22 Polychromasia 1+ H 04/26/18 14:55 Poikilocytosis 1+ H 07/05/18 08:22 Anisocytosis 3+ H 07/05/18 08:22 Macrocytosis 3+ H 06/21/18 13:59 Tear Drop Cells 1+ H 06/21/18 13:59 Schistocytes 1+ H 06/21/18 13:59 Sodium 139 mmol/L (137-145) 07/19/18 10:44 Potassium 4.5 mmol/L (3.4-5.1) 07/19/18 10:44 Chloride 104 mmol/L (98-107) 07/19/18 10:44 Carbon Dioxide 25 mmol/L (22-32) 07/19/18 10:44 BUN 23 mg/dL (9-20) H 07/19/18 10:44 Creatinine 1.10 mg/dL (0.66-1.25) 07/19/18 10:44 Estimated GFR > 60.0 mL/min (>60) 07/19/18 10:44 BUN/Creatinine Ratio 20.9 (6-22) 07/19/18 10:44 Glucose 107 mg/dL (80-110) 07/19/18 10:44 Calcium 9.0 mg/dL (8.4-10.2) 07/19/18 10:44 Total Bilirubin 0.4 mg/dL (0.2-1.3) 07/19/18 10:44 AST 36 IU/L (17-59) 07/19/18 10:44 ALT 38 IU/L (21-72) 07/19/18 10:44 Alkaline Phosphatase 51 U/L (38-126) 07/19/18 10:44 Total Protein 7.6 g/dL (6.3-8.2) 07/19/18 10:44 Albumin 4.5 g/dL (3.5-5.0) 07/19/18 10:44 Globulin 3.1 g/dL (1.7-4.1) 07/19/18 10:44 Albumin/Globulin Ratio 1.5 (1.0-2.8) 07/19/18 10:44 Assessment and Plan (1) Essential thrombocytosis Problem details: Essential thrombocytosis, 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 Assessment: I reviewed the laboratory tests with the patient. Patient's platelet counts have been stable within the normal range. Patient has mild grade 1 leukopenia and mild anemia but has been stable without any clinical symptoms. I will continue current treatment without any changes. Plan: 1. Continue Hydrea 500 mg bid 2. RTC in 4 weeks, repeat CBC, CMP, LDH (2) Anemia Problem details: normocytic, likely related to concurrent diagnosis of ET, hydrea use as well as CKD. Assessment and Plan: Stable, grade 1. We will continue to monitor. Transfusion threshold: H/H 02/12. (3) Peripheral neuropathy Problem details: tingling of feet and hands. maybe related to concurrent diagnosis of ET. Assessment and Plan: Patient reports numbness, tingling, pain in hands and feet have resolved. We will continue to monitor.
[2018-07-19 11:57] LABS: Anisocytosis 3+
[2018-07-19 11:58] LABS: Macrocytosis 2+
[2018-08-12 09:12] LABS: Add Manual Diff / Slide Review NO; Basophils Absolute Auto 0 /uL (0-100); Eosinophils Absolute Auto 100 /uL (0-450); Hematocrit 32.1 % (41-53); Lymphocytes Absolute Auto 700 /uL (1100-4500); Lymphocytes Percent Auto 23.6 % (25-40); Mean Corpuscular HGB Conc 34.4 % (30-36); Mean Corpuscular Hemoglobin 39.8 PG (26-34); Monocytes Absolute Auto 100 /uL (0-900); Monocytes Percent Auto 4.2 % (3-14); Neutrophils Absolute Auto 1900 /uL (1500-7000); Neutrophils Percent Auto 69.2 % (50-75); Platelet Count 249 X10^3/uL (150-400); Red Blood Cell Count 2.77 X10^6/uL (4.5-5.9); Red Cell Distribution Width 19.7 % (11.6-14.8); White Blood Cell Count 2.8 X10^3/uL (4.5-11.0)
[2018-08-12 09:37] LABS: Alanine Aminotransferase 42 IU/L (21-72); Albumin 4.5 g/dL (3.5-5.0); Albumin Globulin Ratio 1.5 (1.0-2.8); Alkaline Phosphatase 57 U/L (38-126); Aspartate Aminotransferase 35 IU/L (17-59); BUN Creatinine Ratio 25.5 (6-22); Bilirubin Total 0.4 mg/dL (0.2-1.3); Blood Urea Nitrogen 28 mg/dL (9-20); Calcium 9.4 mg/dL (8.4-10.2); Carbon Dioxide 25 mmol/L (22-32); Chloride 103 mmol/L (98-107); Estimated Glomerular Filt Rate > 60.0 mL/min (>60); Glucose 113 mg/dL (80-110); HEMOLYSIS < 15 (0-50); Lactate Dehydrogenase 544 U/L (313-618); Potassium 4.5 mmol/L (3.4-5.1); Sodium 139 mmol/L (137-145); Total Protein 7.5 g/dL (6.3-8.2)
[2018-08-12 09:44] LABS: Macrocytosis 2+; Polychromasia 1+
--- NOTE | 2018-08-16 10:30 | ONC.PN ---
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 Treatment with hydroxyurea 500 mg once daily initiated March 05, 2018. Dose was increased to 500 mg twice daily April 12, 2018 due to persistently elevated platelets. Prior to initiation of Hydrea, his platelets were as high as 1,011,000. Overall, he has been doing well. He does report that the food starts tasting funny. He said it is just little bit different than it used to be. No fever, no chills, no shortness of breath, no chest pain, no nausea and no vomiting, no abdominal pain. No rashes. No ulcers in the legs. Oncologic History: 73-year-old gentleman referred by Dr. Elkins for evaluation and management of anemia and thrombocytosis. On December 25, 2017 he was seen for swollen lymph nodes in his groin. Examination at that time reported small, bilateral inguinal lymph nodes ranging approximately 0.5 cm. His routine labs demonstrated WBC 5600, ANC 3472, hemoglobin 11.0, hematocrit 32.0, MCV 88.3, and platelet count 1,011,000. Sedimentation rate 13, CRP < 0.5, BUN 21, creatinine 1.10, calcium 9.2, glucose 88, B12 717, sodium 144, and potassium 5.3. He was also seen at that time by ortho for burning, neuropathic pain in his feet. He was then referred to surgeon Dr. Jones who on January 19, 2018 performed colonoscopy with findings of 4 reportedly benign polyps. Patient was then seen by oncologist Dr. Ortega on January 21, 2018. Lab results that visit demonstrated white cell 7.2, hemoglobin 10.6, hematocrit 30.7, platelets [id number], ANC 5.0, reticulocyte 1.2%, creatinine 1.0, LDH 747, iron 83, TIBC 308, saturation 27%, transferrin 230. JAK2 V617F mutation was positive. Patient subsequently underwent bone marrow aspiration February 23, 2018. The hematopathology demonstrated hypercellular marrow for age (65% cellular) with marked megakaryocytic hyperplasia, megakaryocytic atypia and mild myeloid hyperplasia without expanded blasts. There was mild marrow reticulin fibrosis by special stain (MF 1+ out of 3). Flow cytometry demonstrated no abnormal blast or myeloid cell population identified, and no abnormal B-cell or T-cell population identified. Cytogenic studies demonstrated the karyotype is normal 46 XY[20]. - Patient Self-Reported Symptoms SR ears, nose, mouth, throat issues: Swollen glands SR Cardiovascular issues: Chest pain, discomfort, tightness SR Genitourinary issues: Change in stream SR Hematologic issues: Swollen lymph nodes - Additional ROS All systems PM: reviewed and no additional remarkable complaints except as stated Home Medications and Allergies Home Medications Medication Instructions Recorded Confirmed Type hydroxyurea [Hydrea] 500 mg PO DAILY #30 cap 08/16/18 Rx Allergies Allergy/AdvReac Type Severity Reaction Status Date / Time No Known Drug Allergies Allergy Verified 01/20/18 14:39 Exam Narrative: Constitutional: Well developed, well nourished, not in any acute respiratory distress, average body habitus, well groomed, pleasant and cooperative. HEENT: Normocephalic atraumatic. Extraocular muscle movement intact. Pupils are round, equal and reactive to light and accommodations. Anicteric sclera. No hearing difficulty; Oral mucus membrane moist and without ulcers. Neck: Supple, symmetrical, and tracheal midline; No palpable thyromegaly and no palpable lymph nodes. Respiratory: No use of accessory muscles. Clear to auscultation, and no wheezes or rales or rubs. Cardiovascular: Regular rate and rhythm, S1 and S2 normal, no murmurs gallops or rubs. No JVD. Abdomen: Soft, nontender, non-distended, bowel sounds normal, no palpable organomegaly, no hernia, no palpable masses. Lower extremities: No pitting edema of lower extremities. Lymphatic: no palpable lymph nodes in the neck, axillae, or groins. Musculoskeletal: normal gait and station, no clubbing, no cyanosis, no pitting edema. Skin: no rashes, no ulcers, no petechiae Neurological: Awake and alert and oriented x3. CN II-XII grossly intact. No focal motor or sensory deficit. Psychiatric: Good judgment, good insight, normal affect, normal thought process, cooperative, no depression, no anxiety. Results - Labs Laboratory Last Values WBC 2.8 X10^3/uL (4.5-11.0) L 08/12/18 08:53 RBC 2.77 X10^6/uL (4.5-5.9) L 08/12/18 08:53 Hgb 11.0 g/dL (13.5-17.5) L 08/12/18 08:53 Hct 32.1 % (41-53) L 08/12/18 08:53 MCV 116.0 fL (80-100) H 08/12/18 08:53 MCH 39.8 PG (26-34) H 08/12/18 08:53 MCHC 34.4 % (30-36) 08/12/18 08:53 RDW 19.7 % (11.6-14.8) H 08/12/18 08:53 Plt Count 249 X10^3/uL (150-400) 08/12/18 08:53 Neut % (Auto) 69.2 % (50-75) 08/12/18 08:53 Lymph % (Auto) 23.6 % (25-40) L 08/12/18 08:53 [place] % (Auto) 4.2 % (3-14) 08/12/18 08:53 Eos % (Auto) 2.0 % (2-4) 08/12/18 08:53 Baso % (Auto) 1.0 % (0-2) 08/12/18 08:53 Neut # (Auto) 1900 /uL (8366-5328) 08/12/18 08:53 Lymph # (Auto) 700 /uL (4989-4298) L 08/12/18 08:53 [place] # (Auto) 100 /uL (0-900) 08/12/18 08:53 Eos # (Auto) 100 /uL (0-450) 08/12/18 08:53 Baso # (Auto) 0 /uL (0-100) 08/12/18 08:53 Hypersegmented Neuts 1+ 06/21/18 13:59 Platelet Estimate Increased on smear 04/26/18 14:55 Plt Morphology Comment Note: 04/26/18 14:55 RBC Morphology Not Reportable 08/12/18 08:53 Polychromasia 1+ H 08/12/18 08:53 Poikilocytosis 1+ H 07/05/18 08:22 Anisocytosis 3+ H 07/19/18 10:44 Macrocytosis 2+ H 08/12/18 08:53 Tear Drop Cells 1+ H 06/21/18 13:59 Schistocytes 1+ H 06/21/18 13:59 Sodium 139 mmol/L (137-145) 08/12/18 08:53 Potassium 4.5 mmol/L (3.4-5.1) 08/12/18 08:53 Chloride 103 mmol/L (98-107) 08/12/18 08:53 Carbon Dioxide 25 mmol/L (22-32) 08/12/18 08:53 BUN 28 mg/dL (9-20) H 08/12/18 08:53 Creatinine 1.10 mg/dL (0.66-1.25) 08/12/18 08:53 Estimated GFR > 60.0 mL/min (>60) 08/12/18 08:53 BUN/Creatinine Ratio 25.5 (6-22) H 08/12/18 08:53 Glucose 113 mg/dL (80-110) H 08/12/18 08:53 Calcium 9.4 mg/dL (8.4-10.2) 08/12/18 08:53 Total Bilirubin 0.4 mg/dL (0.2-1.3) 08/12/18 08:53 AST 35 IU/L (17-59) 08/12/18 08:53 ALT 42 IU/L (21-72) 08/12/18 08:53 Alkaline Phosphatase 57 U/L (38-126) 08/12/18 08:53 Lactate Dehydrogenase 544 U/L (313-618) 08/12/18 08:53 Total Protein 7.5 g/dL (6.3-8.2) 08/12/18 08:53 Albumin 4.5 g/dL (3.5-5.0) 08/12/18 08:53 Globulin 3.0 g/dL (1.7-4.1) 08/12/18 08:53 Albumin/Globulin Ratio 1.5 (1.0-2.8) 08/12/18 08:53 Assessment and Plan (1) Essential thrombocytosis Problem details: Essential thrombocytosis, 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 Assessment: I reviewed the laboratory tests with the patient. The most recent total white blood cell count was 2.8. Upon reviewing of the trend it seems to me that it has been going down consistently. In my opinion that the hydroxyurea dosage might be too high. I talked with the patient that I will reduce the dosage to 500 mg once a day and will continue follow closely. Eventually, we may land on a dosage in between 500 and and 1000 mg per day. Patient and patient's both voiced understanding. Plan: 1. Reduce Hydrea from 500 mg bid to 500 mg daily 2. RTC in 4 weeks, repeat CBC, CMP (2) Anemia Problem details: normocytic, likely related to concurrent diagnosis of ET, hydrea use as well as CKD. Assessment and Plan: Stable, grade 1. We will continue to monitor. Transfusion threshold: H/H 02/12. (3) Peripheral neuropathy Problem details: tingling of feet and hands. maybe related to concurrent diagnosis of ET. Assessment and Plan: Patient reports numbness, tingling, pain in hands and feet have resolved. We will continue to monitor.
[2018-08-16 10:34] VITALS: BP 138/68; PULSE 53; RESP 16; TEMP 36.4; O2SAT 100
[2018-09-13 11:09] VITALS: BP 120/70; PULSE 64; RESP 18; TEMP 36.2; O2SAT 99
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
[2018-10-18 11:11] LABS: Add Manual Diff / Slide Review NO; Basophils Absolute Auto 0 /uL (0-100); Basophils Percent Auto 0.6 % (0-2); Eosinophils Absolute Auto 100 /uL (0-450); Eosinophils Percent Auto 1.8 % (2-4); Hematocrit 34.1 % (41-53); Hemoglobin 11.6 g/dL (13.5-17.5); Lymphocytes Absolute Auto 700 /uL (1100-4500); Lymphocytes Percent Auto 17.9 % (25-40); Mean Corpuscular HGB Conc 34.1 % (30-36); Mean Corpuscular Hemoglobin 39.9 PG (26-34); Mean Corpuscular Volume 116.8 fL (80-100); Monocytes Absolute Auto 300 /uL (0-900); Monocytes Percent Auto 7.6 % (3-14); Neutrophils Absolute Auto 3000 /uL (1500-7000); Neutrophils Percent Auto 72.1 % (50-75); Platelet Count 452 X10^3/uL (150-400); Red Blood Cell Count 2.92 X10^6/uL (4.5-5.9); Red Cell Distribution Width 15.7 % (11.6-14.8); White Blood Cell Count 4.2 X10^3/uL (4.5-11.0)
[2018-10-18 11:21] LABS: Alanine Aminotransferase 38 IU/L (21-72); Albumin 4.7 g/dL (3.5-5.0); Albumin Globulin Ratio 1.6 (1.0-2.8); Alkaline Phosphatase 62 U/L (38-126); Aspartate Aminotransferase 35 IU/L (17-59); BUN Creatinine Ratio 16.7 (6-22); Bilirubin Total 0.3 mg/dL (0.2-1.3); Blood Urea Nitrogen 20 mg/dL (9-20); Calcium 9.7 mg/dL (8.4-10.2); Carbon Dioxide 29 mmol/L (22-32); Chloride 103 mmol/L (98-107); Estimated Glomerular Filt Rate 59.7 mL/min (>60); Glucose 98 mg/dL (80-110); HEMOLYSIS < 15 (0-50); Potassium 4.8 mmol/L (3.4-5.1); Sodium 140 mmol/L (137-145); Total Protein 7.7 g/dL (6.3-8.2)
[2018-10-18 11:34] LABS: Macrocytosis 2+; Polychromasia 1+
[2018-10-18 13:18] VITALS: BP 130/70; PULSE 71; RESP 18; TEMP 36.2; O2SAT 97
--- NOTE | 2018-10-18 14:09 | P.PNONC_ITS ---
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 Treatment with hydroxyurea 500 mg once daily initiated March 05, 2018. Dose was increased to 500 mg twice daily April 12, 2018 due to persistently elevated platelets. Prior to initiation of Hydrea, his platelets were as high as 1,011,000. Due to leukopenia, we adjusted the dosage of hydroxyurea to 500 mg alternate with for 1000 mg per day. Patient has a matter of fact is taking 500 mg on Thursday and Thursday and 1000 mg on week days of the remaining week. Patient has tolerated the adjusted dosage schedule very well. No new signs or symptoms. He presents here today for scheduled follow up visit. Oncologic History: 73-year-old gentleman referred by Dr. Elkins for evaluation and management of anemia and thrombocytosis. On December 25, 2017 he was seen for swollen lymph nodes in his groin. Examination at that time reported small, bilateral inguinal lymph nodes ranging approximately 0.5 cm. His routine labs demonstrated WBC 5600, ANC 3472, hemoglobin 11.0, hematocrit 32.0, MCV 88.3, and platelet count 1,011,000. Sedimentation rate 13, CRP < 0.5, BUN 21, creatinine 1.10, calcium 9.2, glucose 88, B12 717, sodium 144, and potassium 5.3. He was also seen at that time by ortho for burning, neuropathic pain in his feet. He was then referred to surgeon Dr. Jones who on January 19, 2018 performed colonoscopy with findings of 4 reportedly benign polyps. Patient was then seen by oncologist Dr. Ortega on January 21, 2018. Lab results that visit demonstrated white cell 7.2, hemoglobin 10.6, hematocrit 30.7, platelets [id number], ANC 5.0, reticulocyte 1.2%, creatinine 1.0, LDH 747, iron 83, TIBC 308, saturation 27%, transferrin 230. JAK2 V617F mutation was positive. Patient subsequently underwent bone marrow aspiration February 23, 2018. The hematopathology demonstrated hypercellular marrow for age (65% cellular) with marked megakaryocytic hyperplasia, megakaryocytic atypia and mild myeloid hyperplasia without expanded blasts. There was mild marrow re ticulin fibrosis by special stain (MF 1+ out of 3). Flow cytometry demonstrated no abnormal blast or myeloid cell population identified, and no abnormal B-cell or T-cell population identified. Cytogenic studies demonstrated the karyotype is normal 46 XY[20]. - Patient Self-Reported Symptoms SR ears, nose, mouth, throat issues: Swollen glands SR Cardiovascular issues: Chest pain, discomfort, tightness SR Genitourinary issues: Change in stream SR Hematologic issues: Swollen lymph nodes - Additional ROS All systems PM: reviewed and no additional remarkable complaints except as stated Home Medications and Allergies Home Medications Medication Instructions Recorded Confirmed Type hydroxyurea 500 mg PO DAILY 6 Days #33 cap 10/18/18 Rx Allergies Allergy/AdvReac Type Severity Reaction Status Date / Time No Known Drug Allergies Allergy Verified 09/07/18 09:00 Exam Vital signs: Last Vital Signs Temp 97.1 F L 10/18/18 13:18 Pulse 71 10/18/18 13:18 Resp 18 10/18/18 13:18 BP 130/70 10/18/18 13:18 Pulse Ox 97 10/18/18 13:18 ECOG 1 Narrative: Constitutional: Well developed, well nourished, not in any acute respiratory distress, average body habitus, well groomed, pleasant and cooperative. HEENT: Normocephalic atraumatic. Extraocular muscle movement intact. Pupils are round, equal and reactive to light and accommodations. Anicteric sclera. No hearing difficulty; Oral mucus membrane moist and without ulcers. Neck: Supple, symmetrical, and tracheal midline; No palpable thyromegaly and no palpable lymph nodes. Respiratory: No use of accessory muscles. Clear to auscultation, and no wheezes Cardiovascular: Regular rate and rhythm, S1 and S2 normal, no murmurs gallops or rubs. No JVD. Abdomen: Soft, nontender, non-distended, bowel sounds normal, no palpable organomegaly, no hernia, no palpable masses. Lower extremities: No pitting edema of lower extremities. Lymphatic: no palpable lymph nodes in the neck, axillae, or groins. Skin: no rashes, no ulcers, no petechiae Neurological: Awake and alert and oriented x3. CN II-XII grossly intact. No focal motor or sensory deficit. Psychiatric: Good judgment, good insight, normal affect, normal thought process, cooperative, no depression, no anxiety. Results - Labs Laboratory Last Values WBC 4.2 X10^3/uL (4.5-11.0) L 10/18/18 10:55 RBC 2.92 X10^6/uL (4.5-5.9) L 10/18/18 10:55 Hgb 11.6 g/dL (13.5-17.5) L 10/18/18 10:55 Hct 34.1 % (41-53) L 10/18/18 10:55 MCV 116.8 fL (80-100) H 10/18/18 10:55 MCH 39.9 PG (26-34) H 10/18/18 10:55 MCHC 34.1 % (30-36) 10/18/18 10:55 RDW 15.7 % (11.6-14.8) H 10/18/18 10:55 Plt Count 452 X10^3/uL (150-400) H 10/18/18 10:55 Neut % (Auto) 72.1 % (50-75) 10/18/18 10:55 Lymph % (Auto) 17.9 % (25-40) L 10/18/18 10:55 [place] % (Auto) 7.6 % (3-14) 10/18/18 10:55 Eos % (Auto) 1.8 % (2-4) L 10/18/18 10:55 Baso % (Auto) 0.6 % (0-2) 10/18/18 10:55 Neut # (Auto) 3000 /uL (7158-5932) 10/18/18 10:55 Lymph # (Auto) 700 /uL (6678-3230) L 10/18/18 10:55 [place] # (Auto) 300 /uL (0-900) 10/18/18 10:55 Eos # (Auto) 100 /uL (0-450) 10/18/18 10:55 Baso # (Auto) 0 /uL (0-100) 10/18/18 10:55 Hypersegmented Neuts 1+ 06/21/18 13:59 Platelet Estimate Increased on smear 04/26/18 14:55 Plt Morphology Comment Note: 04/26/18 14:55 RBC Morphology Not Reportable 10/18/18 10:55 Polychromasia 1+ H 10/18/18 10:55 Poikilocytosis 1+ H 07/05/18 08:22 Anisocytosis 3+ H 07/19/18 10:44 Macrocytosis 2+ H 10/18/18 10:55 Tear Drop Cells 1+ H 06/21/18 13:59 Schistocytes 1+ H 06/21/18 13:59 Sodium 140 mmol/L (137-145) 10/18/18 10:55 Potassium 4.8 mmol/L (3.4-5.1) 10/18/18 10:55 Chloride 103 mmol/L (98-107) 10/18/18 10:55 Carbon Dioxide 29 mmol/L (22-32) 10/18/18 10:55 BUN 20 mg/dL (9-20) 10/18/18 10:55 Creatinine 1.20 mg/dL (0.66-1.25) 10/18/18 10:55 Estimated GFR 59.7 mL/min (>60) L 10/18/18 10:55 BUN/Creatinine Ratio 16.7 (6-22) 10/18/18 10:55 Glucose 98 mg/dL (80-110) 10/18/18 10:55 Calcium 9.7 mg/dL (8.4-10.2) 10/18/18 10:55 Total Bilirubin 0.3 mg/dL (0.2-1.3) 10/18/18 10:55 AST 35 IU/L (17-59) 10/18/18 10:55 ALT 38 IU/L (21-72) 10/18/18 10:55 Alkaline Phosphatase 62 U/L (38-126) 10/18/18 10:55 Lactate Dehydrogenase 544 U/L (313-618) 08/12/18 08:53 Total Protein 7.7 g/dL (6.3-8.2) 10/18/18 10:55 Albumin 4.7 g/dL (3.5-5.0) 10/18/18 10:55 Globulin 3.0 g/dL (1.7-4.1) 10/18/18 10:55 Albumin/Globulin Ratio 1.6 (1.0-2.8) 10/18/18 10:55 Assessment and Plan (1) Essential thrombocytosis Problem details: Essential thrombocytosis, 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 Assessment: I reviewed the laboratory tests with the patient. The white cell count has improved from 4.2, Hct 11.emoglobin level remains stable at 11.6, PLT 452. Clinically patient has tolerated the adjusted dosage very well that is 500 mg on [place] Thursday and Thursday and 500 mg twice a day on the remaining week days. Plan: 1. Continue Hydrea from 500 mg daily on , and 1000 mg daily on remaining weekdays 2. RTC MD in 4 weeks, repeat CBC, CMP (2) Anemia Problem details: normocytic, likely related to concurrent diagnosis of ET, hydrea use as well as CKD. Assessment and Plan: Stable, grade 1. We will continue to monitor. Transfusion threshold: H/H 824. (3) Peripheral neuropathy Problem details: tingling of feet and hands. maybe related to concurrent diagnosis of ET. Assessment and Plan: Patient reports numbness, tingling, pain in hands and feet have resolved. We will continue to monitor.
[2018-11-19 12:30] LABS: Add Manual Diff / Slide Review NO; Basophils Absolute Auto 0 /uL (0-100); Basophils Percent Auto 0.8 % (0-2); Eosinophils Absolute Auto 0 /uL (0-450); Eosinophils Percent Auto 1.1 % (2-4); Hematocrit 35.7 % (41-53); Lymphocytes Absolute Auto 800 /uL (1100-4500); Lymphocytes Percent Auto 19.5 % (25-40); Mean Corpuscular HGB Conc 33.5 % (30-36); Mean Corpuscular Hemoglobin 38.2 PG (26-34); Monocytes Absolute Auto 300 /uL (0-900); Monocytes Percent Auto 7.3 % (3-14); Neutrophils Absolute Auto 3000 /uL (1500-7000); Neutrophils Percent Auto 71.3 % (50-75); Platelet Count 350 X10^3/uL (150-400); Red Blood Cell Count 3.13 X10^6/uL (4.5-5.9); Red Cell Distribution Width 15.8 % (11.6-14.8); White Blood Cell Count 4.2 X10^3/uL (4.5-11.0)
[2018-11-19 12:41] LABS: Alanine Aminotransferase 38 IU/L (21-72); Albumin 4.7 g/dL (3.5-5.0); Albumin Globulin Ratio 1.5 (1.0-2.8); Alkaline Phosphatase 62 U/L (38-126); Aspartate Aminotransferase 39 IU/L (17-59); Bilirubin Total 0.7 mg/dL (0.2-1.3); Blood Urea Nitrogen 24 mg/dL (9-20); Calcium 9.6 mg/dL (8.4-10.2); Carbon Dioxide 29 mmol/L (22-32); Chloride 102 mmol/L (98-107); Estimated Glomerular Filt Rate 59.7 mL/min (>60); Globulin 3.1 g/dL (1.7-4.1); Glucose 96 mg/dL (80-110); HEMOLYSIS < 15 (0-50); Potassium 4.6 mmol/L (3.4-5.1); Sodium 139 mmol/L (137-145); Total Protein 7.8 g/dL (6.3-8.2)
[2018-11-19 12:53] LABS: Macrocytosis 2+; Polychromasia 1+
[2018-11-22 13:57] VITALS: BP 129/72; PULSE 60; RESP 18; TEMP 36.9; O2SAT 99
--- NOTE | 2018-11-22 14:31 | P.PNONC_ITS ---
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 Treatment with hydroxyurea 500 mg once daily initiated March 05, 2018. Dose was increased to 500 mg twice daily April 12, 2018 due to persistently elevated platelets. Prior to initiation of Hydrea, his platelets were as high as 1,011,000. He is now taking hydea 500 mg on Thursday and Thursday and 1000 mg on rest of the week days. Patient has tolerated the adjusted dosage schedule very well. No new signs or symptoms. He presents here today for scheduled follow up visit. Oncologic History: 73-year-old gentleman referred by Dr. Elkins for evaluation and management of anemia and thrombocytosis. On December 25, 2017 he was seen for swollen lymph nodes in his groin. Examination at that time reported small, bilateral inguinal lymph nodes ranging approximately 0.5 cm. His routine labs demonstrated WBC 5600, ANC 3472, hemoglobin 11.0, hematocrit 32.0, MCV 88.3, and platelet count 1,011,000. Sedimentation rate 13, CRP < 0.5, BUN 21, creatinine 1.10, calcium 9.2, glucose 88, B12 717, sodium 144, and potassium 5.3. He was also seen at that time by ortho for burning, neuropathic pain in his feet. He was then referred to surgeon Dr. Jones who on January 19, 2018 performed colonoscopy with findings of 4 reportedly benign polyps. Patient was then seen by oncologist Dr. Ortega on January 21, 2018. Lab results that visit demonstrated white cell 7.2, hemoglobin 10.6, hematocrit 30.7, platelets [id number], ANC 5.0, reticulocyte 1.2%, creatinine 1.0, LDH 747, iron 83, TIBC 308, saturation 27%, transferrin 230. JAK2 V617F mutation was positive. Patient subsequently underwent bone marrow aspiration February 23, 2018. The hematopathology demonstrated hypercellular marrow for age (65% cellular) with marked megakaryocytic hyperplasia, megakaryocytic atypia and mild myeloid hyperplasia without expanded blasts. There was mild marrow reticulin fibrosis by special stain (MF 1+ out of 3). Flow cytometry demonstrated no abnormal blast or myeloid cell population identified, and no abnormal B-cell or T-cell population identified. Cytogenic studies demonstrated the karyotype is normal 46 XY[20]. - Patient Self-Reported Symptoms SR ears, nose, mouth, throat issues: Swollen glands SR Cardiovascular issues: Chest pain, discomfort, tightness SR Genitourinary issues: Change in stream SR Hematologic issues: Swollen lymph nodes - Additional ROS All systems PM: reviewed and no additional remarkable complaints except as stated Home Medications and Allergies Home Medications Medication Instructions Recorded Confirmed Type hydroxyurea [Hydrea] 500 mg PO DAILY #132 cap 11/22/18 Rx Allergies Allergy/AdvReac Type Severity Reaction Status Date / Time No Known Drug Allergies Allergy Verified 09/07/18 09:00 Exam Vital signs: Vital Signs Temp Pulse Resp BP Pulse Ox 11/22/18 13:57 98.4 F 60 18 129/72 99 Intake and Output 11/21/18 11/22/18 11/22/18 23:59 07:59 15:59 Other: Weight 82.3 kg Patient Weight 11/22/18 23:59 Weight 82.3 kg ECOG 1 Narrative: Constitutional: Well developed, well nourished, not in any acute respiratory distress, average body habitus, well groomed, pleasant and cooperative. HEENT: Normocephalic atraumatic. Extraocular muscle movement intact. Pupils are round, equal and reactive to light and accommodations. Anicteric sclera. No hearing difficulty; Oral mucus membrane moist and without ulcers. Neck: Supple, symmetrical, and tracheal midline; No palpable thyromegaly and no palpable lymph nodes. Respiratory: No use of accessory muscles. Clear to auscultation, and no wheezes Cardiovascular: Regular rate and rhythm, S1 and S2 normal, no murmurs gallops or rubs. No JVD. Abdomen: Soft, nontender, non-distended, bowel sounds normal, no palpable organomegaly, no hernia, no palpable masses. Lower extremities: No pitting edema of lower extremities. Lymphatic: no palpable lymph nodes in the neck, axillae, or groins. Skin: no rashes, no ulcers, no petechiae Neurological: Awake and alert and oriented x3. CN II-XII grossly intact. No focal motor or sensory deficit. Psychiatric: Good judgment, good insight, normal affect, normal thought process, cooperative, no depression, no anxiety. Results - Labs Laboratory Last Values WBC 4.2 X10^3/uL (4.5-11.0) L 11/19/18 11:42 RBC 3.13 X10^6/uL (4.5-5.9) L 11/19/18 11:42 Hgb 12.0 g/dL (13.5-17.5) L 11/19/18 11:42 Hct 35.7 % (41-53) L 11/19/18 11:42 MCV 114.0 fL (80-100) H 11/19/18 11:42 MCH 38.2 PG (26-34) H 11/19/18 11:42 MCHC 33.5 % (30-36) 11/19/18 11:42 RDW 15.8 % (11.6-14.8) H 11/19/18 11:42 Plt Count 350 X10^3/uL (150-400) 11/19/18 11:42 Neut % (Auto) 71.3 % (50-75) 11/19/18 11:42 Lymph % (Auto) 19.5 % (25-40) L 11/19/18 11:42 [place] % (Auto) 7.3 % (3-14) 11/19/18 11:42 Eos % (Auto) 1.1 % (2-4) L 11/19/18 11:42 Baso % (Auto) 0.8 % (0-2) 11/19/18 11:42 Neut # (Auto) 3000 /uL (1680-0855) 11/19/18 11:42 Lymph # (Auto) 800 /uL (8264-8225) L 11/19/18 11:42 [place] # (Auto) 300 /uL (0-900) 11/19/18 11:42 Eos # (Auto) 0 /uL (0-450) 11/19/18 11:42 Baso # (Auto) 0 /uL (0-100) 11/19/18 11:42 Hypersegmented Neuts 1+ 06/21/18 13:59 Platelet Estimate Increased on smear 04/26/18 14:55 Plt Morphology Comment Note: 04/26/18 14:55 RBC Morphology Not Reportable 11/19/18 11:42 Polychromasia 1+ H 11/19/18 11:42 Poikilocytosis 1+ H 07/05/18 08:22 Anisocytosis 3+ H 07/19/18 10:44 Macrocytosis 2+ H 11/19/18 11:42 Tear Drop Cells 1+ H 06/21/18 13:59 Schistocytes 1+ H 06/21/18 13:59 Sodium 139 mmol/L (137-145) 11/19/18 11:42 Potassium 4.6 mmol/L (3.4-5.1) 11/19/18 11:42 Chloride 102 mmol/L (98-107) 11/19/18 11:42 Carbon Dioxide 29 mmol/L (22-32) 11/19/18 11:42 BUN 24 mg/dL (9-20) H 11/19/18 11:42 Creatinine 1.20 mg/dL (0.66-1.25) 11/19/18 11:42 Estimated GFR 59.7 mL/min (>60) L 11/19/18 11:42 BUN/Creatinine Ratio 20.0 (6-22) 11/19/18 11:42 Glucose 96 mg/dL (80-110) 11/19/18 11:42 Calcium 9.6 mg/dL (8.4-10.2) 11/19/18 11:42 Total Bilirubin 0.7 mg/dL (0.2-1.3) 11/19/18 11:42 AST 39 IU/L (17-59) 11/19/18 11:42 ALT 38 IU/L (21-72) 11/19/18 11:42 Alkaline Phosphatase 62 U/L (38-126) 11/19/18 11:42 Lactate Dehydrogenase 544 U/L (313-618) 08/12/18 08:53 Total Protein 7.8 g/dL (6.3-8.2) 11/19/18 11:42 Albumin 4.7 g/dL (3.5-5.0) 11/19/18 11:42 Globulin 3.1 g/dL (1.7-4.1) 11/19/18 11:42 Albumin/Globulin Ratio 1.5 (1.0-2.8) 11/19/18 11:42 Assessment and Plan (1) Essential thrombocytosis Problem details: Essential thrombocytosis, 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 Assessment: I reviewed the laboratory tests with the patient. The white cell count is 4.2, hemoglobin 12.0 and platelets 350. Talked with him and his that I think the dosage now it is about right. However given the continued downward trend, I will follow up in month. Patient voiced understanding. Plan: 1. Continue Hydrea from 500 mg daily on MWF, and 1000 mg daily on remaining weekdays 2. RTC MD in 4 weeks, repeat CBC, CMP (2) Anemia Problem details: normocytic, likely related to concurrent diagnosis of ET, hydrea use as well as CKD. Assessment and Plan: Stable, grade 1. We will continue to monitor. Transfusion threshold: H/H 02/12. (3) Peripheral neuropathy Assessment and Plan: Patient reports numbness, tingling, pain in hands and feet have resolved. We will continue to monitor.
[2018-12-17 09:49] LABS: Add Manual Diff / Slide Review NO; Basophils Absolute Auto 0 /uL (0-100); Basophils Percent Auto 0.6 % (0-2); Eosinophils Absolute Auto 100 /uL (0-450); Eosinophils Percent Auto 2.5 % (2-4); Hematocrit 34.1 % (41-53); Hemoglobin 11.6 g/dL (13.5-17.5); Lymphocytes Absolute Auto 800 /uL (1100-4500); Lymphocytes Percent Auto 23.1 % (25-40); Mean Corpuscular Hemoglobin 38.2 PG (26-34); Mean Corpuscular Volume 112.5 fL (80-100); Monocytes Absolute Auto 300 /uL (0-900); Monocytes Percent Auto 7.9 % (3-14); Neutrophils Absolute Auto 2200 /uL (1500-7000); Neutrophils Percent Auto 65.9 % (50-75); Platelet Count 355 X10^3/uL (150-400); Red Blood Cell Count 3.03 X10^6/uL (4.5-5.9); White Blood Cell Count 3.3 X10^3/uL (4.5-11.0)
[2018-12-17 09:57] LABS: Alanine Aminotransferase 34 IU/L (21-72); Albumin 4.5 g/dL (3.5-5.0); Albumin Globulin Ratio 1.7 (1.0-2.8); Alkaline Phosphatase 61 U/L (38-126); Aspartate Aminotransferase 32 IU/L (17-59); BUN Creatinine Ratio 18.3 (6-22); Bilirubin Total 0.7 mg/dL (0.2-1.3); Blood Urea Nitrogen 22 mg/dL (9-20); Calcium 9.4 mg/dL (8.4-10.2); Carbon Dioxide 27 mmol/L (22-32); Chloride 104 mmol/L (98-107); Estimated Glomerular Filt Rate 59.7 mL/min (>60); Globulin 2.7 g/dL (1.7-4.1); Glucose 117 mg/dL (80-110); HEMOLYSIS < 15 (0-50); Potassium 4.7 mmol/L (3.4-5.1); Sodium 141 mmol/L (137-145); Total Protein 7.2 g/dL (6.3-8.2)
[2018-12-17 10:56] LABS: Macrocytosis 2+
[2018-12-20 15:35] VITALS: BP 127/67; PULSE 77; RESP 18; TEMP 36.6; O2SAT 96
--- NOTE | 2018-12-20 15:54 | P.PNONC_ITS ---
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 Treatment with hydroxyurea 500 mg once daily initiated March 05, 2018. Dose was increased to 500 mg twice daily April 12, 2018 due to persistently elevated platelets. Prior to initiation of Hydrea, his platelets were as high as 1,011,000. He is now taking hydea 500 mg on Thursday and Thursday and 1000 mg on rest of the week days. Patient has tolerated the adjusted dosage schedule very well. No new signs or symptoms. He presents here today for scheduled follow up visit. Oncologic History: 73-year-old gentleman referred by Dr. Elkins for evaluation and management of anemia and thrombocytosis. On December 25, 2017 he was seen for swollen lymph nodes in his groin. Examination at that time reported small, bilateral inguinal lymph nodes ranging approximately 0.5 cm. His routine labs demonstrated WBC 5600, ANC 3472, hemoglobin 11.0, hematocrit 32.0, MCV 88.3, and platelet count 1,011,000. Sedimentation rate 13, CRP < 0.5, BUN 21, creatinine 1.10, calcium 9.2, glucose 88, B12 717, sodium 144, and potassium 5.3. He was also seen at that time by ortho for burning, neuropathic pain in his feet. He was then referred to surgeon Dr. Jones who on January 19, 2018 performed colonoscopy with findings of 4 reportedly benign polyps. Patient was then seen by oncologist Dr. Ortega on January 21, 2018. Lab results that visit demonstrated white cell 7.2, hemoglobin 10.6, hematocrit 30.7, platelets [id number], ANC 5.0, reticulocyte 1.2%, creatinine 1.0, LDH 747, iron 83, TIBC 308, saturation 27%, transferrin 230. JAK2 V617F mutation was positive. Patient subsequently underwent bone marrow aspiration February 23, 2018. The hematopathology demonstrated hypercellular marrow for age (65% cellular) with marked megakaryocytic hyperplasia, megakaryocytic atypia and mild myeloid hyperplasia without expanded blasts. There was mild marrow reticulin fibrosis by special stain (MF 1+ out of 3). Flow cytometry demonstrated no abnormal blast or myeloid cell population identified, and no abnormal B-cell or T-cell population identified. Cytogenic studies demonstrated the karyotype is normal 46 XY[20]. - Patient Self-Reported Symptoms SR ears, nose, mouth, throat issues: Swollen glands SR Cardiovascular issues: Chest pain, discomfort, tightness SR Genitourinary issues: Change in stream SR Hematologic issues: Swollen lymph nodes - Additional ROS All systems PM: reviewed and no additional remarkable complaints except as stated Home Medications and Allergies Home Medications Medication Instructions Recorded Confirmed Type hydroxyurea [Hydrea] 500 mg PO DAILY #132 cap 11/22/18 Rx Allergies Allergy/AdvReac Type Severity Reaction Status Date / Time No Known Drug Allergies Allergy Verified 09/07/18 09:00 Exam Vital signs: Last Vital Signs Temp 97.9 F 12/20/18 15:35 Pulse 77 12/20/18 15:35 Resp 18 12/20/18 15:35 BP 127/67 12/20/18 15:35 Pulse Ox 96 12/20/18 15:35 ECOG 1 Narrative: Constitutional: Well developed, well nourished, not in any acute respiratory distress, average body habitus, well groomed, pleasant and cooperative. HEENT: Normocephalic atraumatic. Extraocular muscle movement intact. Pupils are round, equal and reactive to light and accommodations. Anicteric sclera. No hearing difficulty; Oral mucus membrane moist and without ulcers. Neck: Supple, symmetrical, and tracheal midline; No palpable thyromegaly and no palpable lymph nodes. Respiratory: No use of accessory muscles. Clear to auscultation, and no wheezes Cardiovascular: Regular rate and rhythm, S1 and S2 normal, no murmurs gallops or rubs. No JVD. Abdomen: Soft, nontender, non-distended, bowel sounds normal, no palpable organomegaly, no hernia, no palpable masses. Lower extremities: No pitting edema of lower extremities. Lymphatic: no palpable lymph nodes in the neck, axillae, or groins. Skin: no rashes, no ulcers, no petechiae Neurological: Awake and alert and oriented x3. CN II-XII grossly intact. No focal motor or sensory deficit. Psychiatric: Good judgment, good insight, normal affect, normal thought process, cooperative, no depression, no anxiety. Results - Labs Laboratory Last Values WBC 3.3 X10^3/uL (4.5-11.0) L 12/17/18 09:09 RBC 3.03 X10^6/uL (4.5-5.9) L 12/17/18 09:09 Hgb 11.6 g/dL (13.5-17.5) L 12/17/18 09:09 Hct 34.1 % (41-53) L 12/17/18 09:09 MCV 112.5 fL (80-100) H 12/17/18 09:09 MCH 38.2 PG (26-34) H 12/17/18 09:09 MCHC 34.0 % (30-36) 12/17/18 09:09 RDW 16.0 % (11.6-14.8) H 12/17/18 09:09 Plt Count 355 X10^3/uL (150-400) 12/17/18 09:09 Neut % (Auto) 65.9 % (50-75) 12/17/18 09:09 Lymph % (Auto) 23.1 % (25-40) L 12/17/18 09:09 [place] % (Auto) 7.9 % (3-14) 12/17/18 09:09 Eos % (Auto) 2.5 % (2-4) 12/17/18 09:09 Baso % (Auto) 0.6 % (0-2) 12/17/18 09:09 Neut # (Auto) 2200 /uL (2440-9177) 12/17/18 09:09 Lymph # (Auto) 800 /uL (1864-2579) L 12/17/18 09:09 [place] # (Auto) 300 /uL (0-900) 12/17/18 09:09 Eos # (Auto) 100 /uL (0-450) 12/17/18 09:09 Baso # (Auto) 0 /uL (0-100) 12/17/18 09:09 Hypersegmented Neuts 1+ 06/21/18 13:59 Platelet Estimate Increased on smear 04/26/18 14:55 Plt Morphology Comment Note: 04/26/18 14:55 RBC Morphology Not Reportable 12/17/18 09:09 Polychromasia 1+ H 11/19/18 11:42 Poikilocytosis 1+ H 07/05/18 08:22 Anisocytosis 3+ H 07/19/18 10:44 Macrocytosis 2+ H 12/17/18 09:09 Tear Drop Cells 1+ H 06/21/18 13:59 Schistocytes 1+ H 06/21/18 13:59 Sodium 141 mmol/L (137-145) 12/17/18 09:09 Potassium 4.7 mmol/L (3.4-5.1) 12/17/18 09:09 Chloride 104 mmol/L (98-107) 12/17/18 09:09 Carbon Dioxide 27 mmol/L (22-32) 12/17/18 09:09 BUN 22 mg/dL (9-20) H 12/17/18 09:09 Creatinine 1.20 mg/dL (0.66-1.25) 12/17/18 09:09 Estimated GFR 59.7 mL/min (>60) L 12/17/18 09:09 BUN/Creatinine Ratio 18.3 (6-22) 12/17/18 09:09 Glucose 117 mg/dL (80-110) H 12/17/18 09:09 Calcium 9.4 mg/dL (8.4-10.2) 12/17/18 09:09 Total Bilirubin 0.7 mg/dL (0.2-1.3) 12/17/18 09:09 AST 32 IU/L (17-59) 12/17/18 09:09 ALT 34 IU/L (21-72) 12/17/18 09:09 Alkaline Phosphatase 61 U/L (38-126) 12/17/18 09:09 Lactate Dehydrogenase 544 U/L (313-618) 08/12/18 08:53 Total Protein 7.2 g/dL (6.3-8.2) 12/17/18 09:09 Albumin 4.5 g/dL (3.5-5.0) 12/17/18 09:09 Globulin 2.7 g/dL (1.7-4.1) 12/17/18 09:09 Albumin/Globulin Ratio 1.7 (1.0-2.8) 12/17/18 09:09 Assessment and Plan (1) Essential thrombocytosis Essential thrombocytosis, 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 I reviewed the laboratory tests with the patient. The white cell count is 3.3, hemoglobin 11.6 and platelets 355. I talked with him and his that I think the dosage now it is about right. I will see him in 3 months. Patient voiced understanding. Plan: 1. Continue Hydrea from 500 mg daily on MWF, and 1000 mg daily on remaining weekdays 2. RTC MD in 12 weeks, repeat CBC, CMP (2) Anemia Normocytic, likely related to concurrent diagnosis of ET, hydrea use as well as CKD. Stable, grade 1. We will continue to monitor. Transfusion threshold: H/H 824.
[2019-03-24 08:48] LABS: Hematocrit 25.8 % (41-53); Mean Corpuscular HGB Conc 34.9 % (30-36); Mean Corpuscular Hemoglobin 39.9 PG (26-34); Mean Corpuscular Volume 114.1 fL (80-100); Platelet Count 193 X10^3/uL (150-400); Red Blood Cell Count 2.26 X10^6/uL (4.5-5.9)
[2019-03-24 08:59] LABS: Alanine Aminotransferase 31 IU/L (21-72); Albumin 4.4 g/dL (3.5-5.0); Albumin Globulin Ratio 1.5 (1.0-2.8); Alkaline Phosphatase 57 U/L (38-126); Aspartate Aminotransferase 32 IU/L (17-59); Bilirubin Total 0.5 mg/dL (0.2-1.3); Blood Urea Nitrogen 22 mg/dL (9-20); Calcium 8.9 mg/dL (8.4-10.2); Carbon Dioxide 25 mmol/L (22-32); Chloride 105 mmol/L (98-107); Estimated Glomerular Filt Rate > 60.0 mL/min (>60); Globulin 2.9 g/dL (1.7-4.1); Glucose 121 mg/dL (80-110); HEMOLYSIS < 15 (0-50); Potassium 4.3 mmol/L (3.4-5.1); Sodium 140 mmol/L (137-145); Total Protein 7.3 g/dL (6.3-8.2)
[2019-03-24 09:00] LABS: Add Manual Diff / Slide Review YES; White Blood Cell Count 1.7 X10^3/uL (4.5-11.0)
[2019-03-24 09:23] LABS: Neutrophils Absolute Manual 578 /uL (3000-5900); Total Cells Counted 50
[2019-03-24 09:24] LABS: Macrocytosis 2+
[2019-03-24 09:47] VITALS: BP 120/71; PULSE 57; RESP 16; TEMP 36.2; O2SAT 99
--- NOTE | 2019-03-24 10:13 | ONC.PN ---
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 Treatment with hydroxyurea 500 mg once daily initiated March 05, 2018. Dose was increased to 500 mg twice daily April 12, 2018 due to persistently elevated platelets. Prior to initiation of Hydrea, his platelets were as high as 1,011,000. Since Aug, 2018, Hydea has been adjusted to 500 mg on Thursday and Thursday and 1000 mg on rest of the week days. He reports dizziness when standing up. No fever, no chills. No bleeding. Oncologic History: 73-year-old gentleman referred by Dr. Elkins for evaluation and management of anemia and thrombocytosis. On December 25, 2017 he was seen for swollen lymph nodes in his groin. Examination at that time reported small, bilateral inguinal lymph nodes ranging approximately 0.5 cm. His routine labs demonstrated WBC 5600, ANC 3472, hemoglobin 11.0, hematocrit 32.0, MCV 88.3, and platelet count 1,011,000. Sedimentation rate 13, CRP < 0.5, BUN 21, creatinine 1.10, calcium 9.2, glucose 88, B12 717, sodium 144, and potassium 5.3. He was also seen at that time by ortho for burning, neuropathic pain in his feet. He was then referred to surgeon Dr. Jones who on January 19, 2018 performed colonoscopy with findings of 4 reportedly benign polyps. Patient was then seen by oncologist Dr. Ortega on January 21, 2018. Lab results that visit demonstrated white cell 7.2, hemoglobin 10.6, hematocrit 30.7, platelets [id number], ANC 5.0, reticulocyte 1.2%, creatinine 1.0, LDH 747, iron 83, TIBC 308, saturation 27%, transferrin 230. JAK2 V617F mutation was positive. Patient subsequently underwent bone marrow aspiration February 23, 2018. The hematopathology demonstrated hypercellular marrow for age (65% cellular) with marked megakaryocytic hyperplasia, megakaryocytic atypia and mild myeloid hyperplasia without expanded blasts. There was mild marrow reticulin fibrosis by special stain (MF 1+ out of 3). Flow cytometry demonstrated no abnormal blast or myeloid cell population identified, and no abnormal B-cell or T-cell population identified. Cytogenic studies demonstrated the karyotype is normal 46 XY[20]. - Patient Self-Reported Symptoms SR ears, nose, mouth, throat issues: Swollen glands SR Cardiovascular issues: Chest pain, discomfort, tightness SR Genitourinary issues: Change in stream SR Hematologic issues: Swollen lymph nodes - Additional ROS All systems PM: reviewed and no additional remarkable complaints except as stated Home Medications and Allergies Home Medications Medication Instructions Recorded Confirmed Type hydroxyurea [Hydrea] 500 mg PO DAILY #132 cap 11/22/18 03/24/19 Rx Allergies Allergy/AdvReac Type Severity Reaction Status Date / Time No Known Drug Allergies Allergy Verified 09/07/18 09:00 Exam Vital signs: Vital Signs Temp Pulse Resp BP Pulse Ox 03/24/19 09:47 97.2 F L 57 L 16 120/71 99 Intake and Output 03/23/19 03/24/19 03/24/19 23:59 07:59 15:59 Other: Weight 81.9 kg Patient Weight 03/24/19 23:59 Weight 81.9 kg - Constitutional positive no acute distress, positive average body habitus, positive cooperative - Routine HEENT Exam Head: Present: normocephalic, atraumatic Eye: Present: EOMI, PERRL, normal accommodation. Absent: conjunctival icterus ENT: Present: mucous membranes moist - Routine Neck Exam Present: supple. Absent: lymphadenopathy, thyromegaly - Routine Chest/Breast/Axilla Exam Axillae: Absent: lymphadenopathy - Routine Respiratory Exam Present: Clear to auscultation bilaterally. Absent: wheezes - Routine Cardiovascular Exam Present: RRR, S1, S2. Absent: murmur, gallop, rubs - Routine Abdominal Exam Present: soft. Absent: tenderness, distended, organomegaly - Routine Extremities Exam Absent: edema - Routine Neurological Exam Present: alert, oriented X3, CN II-XII intact. Absent: sensory deficit, motor deficit - Routine Psychiatric Exam Present: normal affect Results - Labs Laboratory Last Values WBC 1.7 X10^3/uL (4.5-11.0) L* 03/24/19 08:29 RBC 2.26 X10^6/uL (4.5-5.9) L 03/24/19 08:29 Hgb 9.0 g/dL (13.5-17.5) L 03/24/19 08:29 Hct 25.8 % (41-53) L 03/24/19 08:29 MCV 114.1 fL (80-100) H 03/24/19 08:29 MCH 39.9 PG (26-34) H 03/24/19 08:29 MCHC 34.9 % (30-36) 03/24/19 08:29 RDW 16.0 % (11.6-14.8) H 03/24/19 08:29 Plt Count 193 X10^3/uL (150-400) 03/24/19 08:29 Neut % (Auto) Not Reportable 03/24/19 08:29 Lymph % (Auto) Not Reportable 03/24/19 08:29 [place] % (Auto) Not Reportable 03/24/19 08:29 Eos % (Auto) Not Reportable 03/24/19 08:29 Baso % (Auto) Not Reportable 03/24/19 08:29 Neut # (Auto) 2200 /uL (8950-8949) 12/17/18 09:09 Lymph # (Auto) Not Reportable 03/24/19 08:29 [place] # (Auto) Not Reportable 03/24/19 08:29 Eos # (Auto) 100 /uL (0-450) 12/17/18 09:09 Baso # (Auto) Not Reportable 03/24/19 08:29 Total Counted 50 03/24/19 08:29 Seg Neutrophils % 34.0 % (38-70) L 03/24/19 08:29 Lymphocytes % (Manual) 58.0 % (25-45) H 03/24/19 08:29 Monocytes % (Manual) 6.0 % (2-11) 03/24/19 08:29 Eosinophils % (Manual) 2.0 % (2-4) 03/24/19 08:29 Neutrophils # (Manual) 578 /uL (5080-0046) L 03/24/19 08:29 Hypersegmented Neuts 1+ 06/21/18 13:59 Platelet Estimate Increased on smear 04/26/18 14:55 Plt Morphology Comment Note: 04/26/18 14:55 RBC Morphology See below 03/24/19 08:29 Polychromasia 1+ H 11/19/18 11:42 Poikilocytosis 1+ H 07/05/18 08:22 Anisocytosis 3+ H 07/19/18 10:44 Macrocytosis 2+ H 03/24/19 08:29 Tear Drop Cells 1+ H 06/21/18 13:59 Schistocytes 1+ H 06/21/18 13:59 Sodium 140 mmol/L (137-145) 03/24/19 08:29 Potassium 4.3 mmol/L (3.4-5.1) 03/24/19 08:29 Chloride 105 mmol/L (98-107) 03/24/19 08:29 Carbon Dioxide 25 mmol/L (22-32) 03/24/19 08:29 BUN 22 mg/dL (9-20) H 03/24/19 08:29 Creatinine 1.10 mg/dL (0.66-1.25) 03/24/19 08:29 Estimated GFR > 60.0 mL/min (>60) 03/24/19 08:29 BUN/Creatinine Ratio 20.0 (6-22) 03/24/19 08:29 Glucose 121 mg/dL (80-110) H 03/24/19 08:29 Calcium 8.9 mg/dL (8.4-10.2) 03/24/19 08:29 Total Bilirubin 0.5 mg/dL (0.2-1.3) 03/24/19 08:29 AST 32 IU/L (17-59) 03/24/19 08:29 ALT 31 IU/L (21-72) 03/24/19 08:29 Alkaline Phosphatase 57 U/L (38-126) 03/24/19 08:29 Lactate Dehydrogenase 544 U/L (313-618) 08/12/18 08:53 Total Protein 7.3 g/dL (6.3-8.2) 03/24/19 08:29 Albumin 4.4 g/dL (3.5-5.0) 03/24/19 08:29 Globulin 2.9 g/dL (1.7-4.1) 03/24/19 08:29 Albumin/Globulin Ratio 1.5 (1.0-2.8) 03/24/19 08:29 Assessment and Plan (1) Essential thrombocytosis Essential thrombocytosis, 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 I reviewed the laboratory tests with the patient. The white cell count is 1.7, hemoglobin 9.0 and platelets 193. I talked with him and his that I think the dosage is too much. Will adjust to daily 500 mg daily. Patient voiced understanding. Plan: 1. Adjust Hydrea to 500 mg daily 2. RTC MD in 4 weeks, repeat CBC (2) Anemia Normocytic, likely related to concurrent diagnosis of ET, hydrea use as well as CKD. Stable, grade 1. We will continue to monitor. Transfusion threshold: H/H 02/12.
--- NOTE | 2019-03-24 16:38 | PC.NURSE ---
Dr. Barth aware of WBC 1.7, no new orders received.
[2019-05-11 09:20] LABS: Add Manual Diff / Slide Review YES; Hematocrit 26.5 % (41-53); Mean Corpuscular Hemoglobin 38.1 PG (26-34); Mean Corpuscular Volume 112.2 fL (80-100); Platelet Count 217 X10^3/uL (150-400); Red Blood Cell Count 2.36 X10^6/uL (4.5-5.9); Red Cell Distribution Width 16.3 % (11.6-14.8); White Blood Cell Count 4.1 X10^3/uL (4.5-11.0)
[2019-05-11 09:57] LABS: Neutrophils Absolute Manual 1722 /uL (3000-5900); Total Cells Counted 100
[2019-05-11 09:58] LABS: Anisocytosis 2+; Hypochromasia 1+; Polychromasia 1+; Tear Drop Cells 1+
[2019-05-12 09:34] VITALS: BP 129/73; PULSE 64; RESP 18; TEMP 36; O2SAT 100
--- NOTE | 2019-05-12 09:42 | P.PNONC_ITS ---
PN -Subjective Interval history: ID/CC: 73 year old with ET JAK2 V617F positve here for scheduled follow up visit. Inteirm Events: Patient presents here today for scheduled follow-up visit. He said he has no symptoms. He is still hunting is doing lot of work. No bleeding. No shortness of breath no chest pain. No abdominal pain no diarrhea and no constipation. Oncologic History: 73-year-old gentleman referred by Dr. Elkins for evaluation and management of anemia and thrombocytosis. On December 25, 2017 he was seen for swollen lymph nodes in his groin. Examination at that time reported small, bilateral inguinal lymph nodes ranging approximately 0.5 cm. His routine labs demonstrated WBC 5600, ANC 3472, hemoglobin 11.0, hematocrit 32.0, MCV 88.3, and platelet count 1,011,000. Sedimentation rate 13, CRP < 0.5, BUN 21, creatinine 1.10, calcium 9.2, glucose 88, B12 717, sodium 144, and potassium 5.3. He was also seen at that time by ortho for burning, neuropathic pain in his feet. He was then referred to surgeon Dr. Jones who on January 19, 2018 performed colonoscopy with findings of 4 reportedly benign polyps. Patient was then seen by oncologist Dr. Ortega on January 21, 2018. Lab results that visit demonstrated white cell 7.2, hemoglobin 10.6, hematocrit 30.7, platelets [id number], ANC 5.0, reticulocyte 1.2%, creatinine 1.0, LDH 747, iron 83, TIBC 308, saturation 27%, transferrin 230. JAK2 V617F mutation was positive. Patient subsequently underwent bone marrow aspiration February 23, 2018. The hematopathology demonstrated hypercellular marrow for age (65% cellular) with marked megakaryocytic hyperplasia, megakaryocytic atypia and mild myeloid hyperplasia without expanded blasts. There was mild marrow reticulin fibrosis by special stain (MF 1+ out of 3). Flow cytometry demonstrated no abnormal blast or myeloid cell population identified, and no abnormal B-cell or T-cell population identified. Cytogenic studies demonstrated the karyotype is normal 46 XY[20]. Treatment with hydroxyurea was initiated March 05, 2018. . - Patient Self-Reported Symptoms SR ears, nose, mouth, throat issues: Swollen glands SR Cardiovascular issues: Chest pain, discomfort, tightness SR Genitourinary issues: Change in stream SR Hematologic issues: Swollen lymph nodes - Additional ROS All systems PM: reviewed and no additional remarkable complaints except as stated Home Medications and Allergies Home Medications Medication Instructions Recorded Confirmed Type hydroxyurea [Hydrea] 500 mg PO DAILY #132 cap 11/22/18 05/12/19 Rx Allergies Allergy/AdvReac Type Severity Reaction Status Date / Time No Known Drug Allergies Allergy Verified 09/07/18 09:00 Exam Vital signs: Vital Signs Temp Pulse Resp BP Pulse Ox 05/12/19 09:34 96.8 F L 64 18 129/73 100 Intake and Output 05/11/19 05/12/19 05/12/19 23:59 07:59 15:59 Other: Weight 82.6 kg Patient Weight 05/12/19 23:59 Weight 82.6 kg Narrative: Gen: WDWN, NAD, pleasant and cooperative. HEENT: NCAT, EOMI, PERRLA, anicteric sclera. Neck: Supple, No palpable thyromegaly or lymphadenopathy. Respiratory: CTAB, no wheezes audible. No JVD Cardiovascular: RRR, S1 and S2 normal, no M/G/R. Abdomen: Soft, NTND, BS normal, no palpable organomegaly Extremities: No LE pitting edema. Lymphatic: no palpable lymph nodes in the neck, axillae, or groins. Neurological: AOx3, CN II-XII grossly intact. No focal motor or sensory deficit. Psychiatric: Good judgment and insight; normal affect; normal thought process; cooperative, no depression, no anxiety. Results - Labs Laboratory Last Values WBC 4.1 X10^3/uL (4.5-11.0) L 05/11/19 09:08 RBC 2.36 X10^6/uL (4.5-5.9) L 05/11/19 09:08 Hgb 9.0 g/dL (13.5-17.5) L 05/11/19 09:08 Hct 26.5 % (41-53) L 05/11/19 09:08 MCV 112.2 fL (80-100) H 05/11/19 09:08 MCH 38.1 PG (26-34) H 05/11/19 09:08 MCHC 34.0 % (30-36) 05/11/19 09:08 RDW 16.3 % (11.6-14.8) H 05/11/19 09:08 Plt Count 217 X10^3/uL (150-400) 05/11/19 09:08 Neut % (Auto) Not Reportable 05/11/19 09:08 Lymph % (Auto) Not Reportable 05/11/19 09:08 [place] % (Auto) Not Reportable 05/11/19 09:08 Eos % (Auto) Not Reportable 05/11/19 09:08 Baso % (Auto) Not Reportable 05/11/19 09:08 Neut # (Auto) 2200 /uL ([id number]) 12/17/18 09:09 Lymph # (Auto) Not Reportable 05/11/19 09:08 [place] # (Auto) Not Reportable 05/11/19 09:08 Eos # (Auto) 100 /uL (0-450) 12/17/18 09:09 Baso # (Auto) Not Reportable 05/11/19 09:08 Total Counted 100 05/11/19 09:08 Seg Neutrophils % 35.0 % (38-70) L 05/11/19 09:08 Band Neutrophils % 7.0 % (3-7) 05/11/19 09:08 Lymphocytes % (Manual) 40.0 % (25-45) 05/11/19 09:08 Atypical Lymphs % 3.0 % (-0) H 05/11/19 09:08 Monocytes % (Manual) 11.0 % (2-11) 05/11/19 09:08 Eosinophils % (Manual) 1.0 % (2-4) L 05/11/19 09:08 Metamyelocytes % 2.0 % (-0) H 05/11/19 09:08 Myelocytes % 1.0 % (-0) H 05/11/19 09:08 Neutrophils # (Manual) 1722 /uL ([id number]) L 05/11/19 09:08 Hypersegmented Neuts 1+ 06/21/18 13:59 Platelet Estimate Increased on smear 04/26/18 14:55 Plt Morphology Comment Note: 04/26/18 14:55 RBC Morphology Not Reportable 05/11/19 09:08 Polychromasia 1+ H 05/11/19 09:08 Hypochromasia 1+ H 05/11/19 09:08 Poikilocytosis 1+ H 07/05/18 08:22 Anisocytosis 2+ H 05/11/19 09:08 Macrocytosis 2+ H 03/24/19 08:29 Tear Drop Cells 1+ H 05/11/19 09:08 Schistocytes 1+ H 06/21/18 13:59 Sodium 140 mmol/L (137-145) 03/24/19 08:29 Potassium 4.3 mmol/L (3.4-5.1) 03/24/19 08:29 Chloride 105 mmol/L (98-107) 03/24/19 08:29 Carbon Dioxide 25 mmol/L (22-32) 03/24/19 08:29 BUN 22 mg/dL (9-20) H 03/24/19 08:29 Creatinine 1.10 mg/dL (0.66-1.25) 03/24/19 08:29 Estimated GFR > 60.0 mL/min (>60) 03/24/19 08:29 BUN/Creatinine Ratio 20.0 (6-22) 03/24/19 08:29 Glucose 121 mg/dL (80-110) H 03/24/19 08:29 Calcium 8.9 mg/dL (8.4-10.2) 03/24/19 08:29 Total Bilirubin 0.5 mg/dL (0.2-1.3) 03/24/19 08:29 AST 32 IU/L (17-59) 03/24/19 08:29 ALT 31 IU/L (21-72) 03/24/19 08:29 Alkaline Phosphatase 57 U/L (38-126) 03/24/19 08:29 Lactate Dehydrogenase 544 U/L (313-618) 08/12/18 08:53 Total Protein 7.3 g/dL (6.3-8.2) 03/24/19 08:29 Albumin 4.4 g/dL (3.5-5.0) 03/24/19 08:29 Globulin 2.9 g/dL (1.7-4.1) 03/24/19 08:29 Albumin/Globulin Ratio 1.5 (1.0-2.8) 03/24/19 08:29 Assessment and Plan (1) Essential thrombocytosis Overveiw: Essential thrombocytosis, 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 Assessment: I reviewed the laboratory tests with the patient. The white cell count is 4.1, hemoglobin 9.0 and platelets 217. I told Eddie that the dosage seems to be appropriate. I will continue. Plan: 1. Continue Hydrea to 500 mg daily 2. RTC MD in 4 weeks, repeat CBC, CMP (2) Anemia Normocytic, likely related to concurrent diagnosis of ET, hydrea use as well as CKD. Stable, grade 1. We will continue to monitor. Transfusion threshold: H/H 02/12.
[2019-06-09 08:58] VITALS: BP 123/60; PULSE 62; RESP 18; TEMP 36.8; O2SAT 98
--- NOTE | 2019-06-09 09:06 | ONC.PN ---
PN -Subjective Interval history: ID/CC: 74 year old with ET JAK2 V617F positve here for scheduled follow up visit. Oncologic History: 74-year-old gentleman referred by Dr. Elkins for evaluation and management of anemia and thrombocytosis. On December 25, 2017 he was seen for swollen lymph nodes in his groin. Examination at that time reported small, bilateral inguinal lymph nodes ranging approximately 0.5 cm. His routine labs demonstrated WBC 5600, ANC 3472, hemoglobin 11.0, hematocrit 32.0, MCV 88.3, and platelet count 1,011,000. Sedimentation rate 13, CRP < 0.5, BUN 21, creatinine 1.10, calcium 9.2, glucose 88, B12 717, sodium 144, and potassium 5.3. He was also seen at that time by ortho for burning, neuropathic pain in his feet. He was then referred to surgeon Dr. Jones who on January 19, 2018 performed colonoscopy with findings of 4 reportedly benign polyps. Patient was then seen by oncologist Dr. Ortega on January 21, 2018. Lab results that visit demonstrated white cell 7.2, hemoglobin 10.6, hematocrit 30.7, platelets [id number], ANC 5.0, reticulocyte 1.2%, creatinine 1.0, LDH 747, iron 83, TIBC 308, saturation 27%, transferrin 230. JAK2 V617F mutation was positive. Patient subsequently underwent bone marrow aspiration February 23, 2018. The hematopathology demonstrated hypercellular marrow for age (65% cellular) with marked megakaryocytic hyperplasia, megakaryocytic atypia and mild myeloid hyperplasia without expanded blasts. There was mild marrow reticulin fibrosis by special stain (MF 1+ out of 3). Flow cytometry demonstrated no abnormal blast or myeloid cell population identified, and no abnormal B-cell or T-cell population identified. Cytogenic studies demonstrated the karyotype is normal 46 XY[20]. Treatment with hydroxyurea was initiated March 05, 2018. Inteirm Events: Patient presents here today for scheduled follow-up visit. He reports that he does not have the energy level as he used to. He is also experiencing mild to moderate exertional shortness of breath. He denies fever or chills. He denies night sweats. He has good appetite and his weight is going up. - Patient Self-Reported Symptoms SR ears, nose, mouth, throat issues: Swollen glands SR Cardiovascular issues: Chest pain, discomfort, tightness SR Genitourinary issues: Change in stream SR Hematologic issues: Swollen lymph nodes - Additional ROS All systems PM: reviewed and no additional remarkable complaints except as stated Home Medications and Allergies Home Medications Medication Instructions Recorded Confirmed Type hydroxyurea [Hydrea] 500 mg PO DAILY #132 cap 11/22/18 06/09/19 Rx Allergies Allergy/AdvReac Type Severity Reaction Status Date / Time No Known Drug Allergies Allergy Verified 09/07/18 09:00 Exam Vital signs: Vital Signs Temp Pulse Resp BP Pulse Ox 06/09/19 08:58 98.3 F 62 18 123/60 98 Intake and Output 06/08/19 06/09/19 06/09/19 23:59 07:59 15:59 Other: Weight 83.4 kg Patient Weight 06/09/19 23:59 Weight 83.4 kg ECOG 1 Narrative: Gen: WDWN, NAD, pleasant and cooperative. HEENT: NCAT, EOMI, PERRLA, anicteric sclera. Neck: Supple, No palpable thyromegaly or lymphadenopathy. Respiratory: CTAB, no wheezes audible. No JVD Cardiovascular: RRR, S1 and S2 normal, no M/G/R. Abdomen: Soft, NTND, BS normal, no palpable organomegaly Extremities: No LE pitting edema. Lymphatic: no palpable lymph nodes in the neck, axillae, or groins. Neurological: AOx3, CN II-XII grossly intact. No focal motor or sensory deficit. Psychiatric: Good judgment and insight; normal affect; normal thought process; cooperative, no depression, no anxiety. Results - Labs Laboratory Last Values WBC 4.1 X10^3/uL (4.5-11.0) L 05/11/19 09:08 RBC 2.36 X10^6/uL (4.5-5.9) L 05/11/19 09:08 Hgb 9.0 g/dL (13.5-17.5) L 05/11/19 09:08 Hct 26.5 % (41-53) L 05/11/19 09:08 MCV 112.2 fL (80-100) H 05/11/19 09:08 MCH 38.1 PG (26-34) H 05/11/19 09:08 MCHC 34.0 % (30-36) 05/11/19 09:08 RDW 16.3 % (11.6-14.8) H 05/11/19 09:08 Plt Count 217 X10^3/uL (150-400) 05/11/19 09:08 Neut % (Auto) Not Reportable 05/11/19 09:08 Lymph % (Auto) Not Reportable 05/11/19 09:08 [place] % (Auto) Not Reportable 05/11/19 09:08 Eos % (Auto) Not Reportable 05/11/19 09:08 Baso % (Auto) Not Reportable 05/11/19 09:08 Neut # (Auto) 2200 /uL (7752-1131) 12/17/18 09:09 Lymph # (Auto) Not Reportable 05/11/19 09:08 [place] # (Auto) Not Reportable 05/11/19 09:08 Eos # (Auto) 100 /uL (0-450) 12/17/18 09:09 Baso # (Auto) Not Reportable 05/11/19 09:08 Total Counted 100 05/11/19 09:08 Seg Neutrophils % 35.0 % (38-70) L 05/11/19 09:08 Band Neutrophils % 7.0 % (3-7) 05/11/19 09:08 Lymphocytes % (Manual) 40.0 % (25-45) 05/11/19 09:08 Atypical Lymphs % 3.0 % (-0) H 05/11/19 09:08 Monocytes % (Manual) 11.0 % (2-11) 05/11/19 09:08 Eosinophils % (Manual) 1.0 % (2-4) L 05/11/19 09:08 Metamyelocytes % 2.0 % (-0) H 05/11/19 09:08 Myelocytes % 1.0 % (-0) H 05/11/19 09:08 Neutrophils # (Manual) 1722 /uL (6351-0913) L 05/11/19 09:08 Hypersegmented Neuts 1+ 06/21/18 13:59 Platelet Estimate Increased on smear 04/26/18 14:55 Plt Morphology Comment Note: 04/26/18 14:55 RBC Morphology Not Reportable 05/11/19 09:08 Polychromasia 1+ H 05/11/19 09:08 Hypochromasia 1+ H 05/11/19 09:08 Poikilocytosis 1+ H 07/05/18 08:22 Anisocytosis 2+ H 05/11/19 09:08 Macrocytosis 2+ H 03/24/19 08:29 Tear Drop Cells 1+ H 05/11/19 09:08 Schistocytes 1+ H 06/21/18 13:59 Sodium 140 mmol/L (137-145) 03/24/19 08:29 Potassium 4.3 mmol/L (3.4-5.1) 03/24/19 08:29 Chloride 105 mmol/L (98-107) 03/24/19 08:29 Carbon Dioxide 25 mmol/L (22-32) 03/24/19 08:29 BUN 22 mg/dL (9-20) H 03/24/19 08:29 Creatinine 1.10 mg/dL (0.66-1.25) 03/24/19 08:29 Estimated GFR > 60.0 mL/min (>60) 03/24/19 08:29 BUN/Creatinine Ratio 20.0 (6-22) 03/24/19 08:29 Glucose 121 mg/dL (80-110) H 03/24/19 08:29 Calcium 8.9 mg/dL (8.4-10.2) 03/24/19 08:29 Total Bilirubin 0.5 mg/dL (0.2-1.3) 03/24/19 08:29 AST 32 IU/L (17-59) 03/24/19 08:29 ALT 31 IU/L (21-72) 03/24/19 08:29 Alkaline Phosphatase 57 U/L (38-126) 03/24/19 08:29 Lactate Dehydrogenase 544 U/L (313-618) 08/12/18 08:53 Total Protein 7.3 g/dL (6.3-8.2) 03/24/19 08:29 Albumin 4.4 g/dL (3.5-5.0) 03/24/19 08:29 Globulin 2.9 g/dL (1.7-4.1) 03/24/19 08:29 Albumin/Globulin Ratio 1.5 (1.0-2.8) 03/24/19 08:29 Assessment and Plan (1) Essential thrombocytosis Overveiw: Essential thrombocytosis, 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 Assessment: I reviewed the laboratory tests with the patient. The white blood cell count was 5.7, hemoglobin 7.7, platelets 173. Talked with the patient that I think the dosage of Hydrea is too high. I recommend that we reduce the dosage to 500 mg every other day. Patient voiced understanding. Plan: 1. Reduce Hydrea to 500 mg every other day 2. RTC MD in 4 weeks, repeat CBC, CMP (2) Anemia Overview: Macrocytic, likely related to use of Hydrea. Assessment: Reduced Hydrea to 500 mg every other days. Plan: RTC in 4 weeks, repeat CBC, CMP, iron panel, ferritin, b12, folate Transfusion threshold: H/H 01/09.
[2019-07-11 10:53] VITALS: BP 142/73; PULSE 71; RESP 16; TEMP 36.7; O2SAT 100
--- NOTE | 2019-07-11 11:03 | ONC.PN ---
PN -Subjective Interval history: ID/CC: 74 year old with ET JAK2 V617F positve here for scheduled follow up visit. Oncologic History: 74-year-old gentleman referred by Dr. Elkins for evaluation and management of anemia and thrombocytosis. On December 25, 2017 he was seen for swollen lymph nodes in his groin. Examination at that time reported small, bilateral inguinal lymph nodes ranging approximately 0.5 cm. His routine labs demonstrated WBC 5600, ANC 3472, hemoglobin 11.0, hematocrit 32.0, MCV 88.3, and platelet count 1,011,000. Sedimentation rate 13, CRP < 0.5, BUN 21, creatinine 1.10, calcium 9.2, glucose 88, B12 717, sodium 144, and potassium 5.3. He was also seen at that time by ortho for burning, neuropathic pain in his feet. He was then referred to surgeon Dr. Jones who on January 19, 2018 performed colonoscopy with findings of 4 reportedly benign polyps. Patient was then seen by oncologist Dr. Ortega on January 21, 2018. Lab results that visit demonstrated white cell 7.2, hemoglobin 10.6, hematocrit 30.7, platelets [id number], ANC 5.0, reticulocyte 1.2%, creatinine 1.0, LDH 747, iron 83, TIBC 308, saturation 27%, transferrin 230. JAK2 V617F mutation was positive. Patient subsequently underwent bone marrow aspiration February 23, 2018. The hematopathology demonstrated hypercellular marrow for age (65% cellular) with marked megakaryocytic hyperplasia, megakaryocytic atypia and mild myeloid hyperplasia without expanded blasts. There was mild marrow reticulin fibrosis by special stain (MF 1+ out of 3). Flow cytometry demonstrated no abnormal blast or myeloid cell population identified, and no abnormal B-cell or T-cell population identified. Cytogenic studies demonstrated the karyotype is normal 46 XY[20]. Treatment with hydroxyurea was initiated March 05, 2018. Inteirm Events: Patient presents here today for scheduled follow-up visit. On 06/20/2019, patient developed fever, right upper chest pain especially when taking deep breath, shortness breath, and right leg weakness. He presented to [facility] Emergency Room and was diagnosed with subsegmental pulmonary emboli in the right lower lobe after CT angiogram. Ultrasound of the lower extremities showed occlusive thrombus involving the right common femoral and superficial femoral veins. Patient was started on heparin drip which was later transitioned to Lovenox injection. After he was discharged from the hospital, it was transitioned to Coumadin. While in the hospital, patient was found to have low hemoglobin level as low as 7.1 requiring blood transfusion. On admission, his white cell count 20.8. On discharge it has normalized to 8.6. Patient currently is being followed by Dr. Elkins as far as INR monitoring and Coumadin dosage adjustment are concerned. Patient admitted that during 2018, patient drove continuously for more than 12 hours in the car without taking a break. Since then, patient reported that the right upper chest pain has improved almost resolved. Occasionally he still feels achiness when taking deep breath. He denies any lower extremity swelling or tenderness. He denies any fever at this moment. He denies nausea or vomiting. No diarrhea and no constipation. Throughout this period of time, patient said that he has not missed single dose of Hydrea. - Patient Self-Reported Symptoms SR ears, nose, mouth, throat issues: Swollen glands SR Cardiovascular issues: Chest pain, discomfort, tightness SR Genitourinary issues: Change in stream SR Hematologic issues: Swollen lymph nodes - Additional ROS All systems PM: reviewed and no additional remarkable complaints except as stated Home Medications and Allergies Home Medications Medication Instructions Recorded Confirmed Type famotidine 20 mg tablet 20 mg PO BID 07/01/19 07/11/19 History hydroxyurea 500 mg capsule 500 mg PO Q OTHER DAY cap 07/01/19 07/11/19 History warfarin 3 mg PO DAILY 07/11/19 07/11/19 History Allergies Allergy/AdvReac Type Severity Reaction Status Date / Time No Known Drug Allergies Allergy Verified 07/01/19 14:15 Exam Vital signs: Vital Signs Temp Pulse Resp BP Pulse Ox 07/11/19 10:53 98.0 F 71 16 142/73 H 100 Intake and Output 07/10/19 07/11/19 07/11/19 23:59 07:59 15:59 Other: Weight 80.1 kg Patient Weight 07/11/19 23:59 Weight 80.1 kg Narrative: Gen: WDWN, NAD, pleasant and cooperative. HEENT: NCAT, EOMI, PERRLA, anicteric sclera. Neck: Supple, No palpable thyromegaly or lymphadenopathy. Respiratory: CTAB, no wheezes audible. No JVD Cardiovascular: RRR, S1 and S2 normal, no M/G/R. Abdomen: Soft, NTND, BS normal, no palpable organomegaly Extremities: No LE pitting edema. Lymphatic: no palpable lymph nodes in the neck, axillae Neurological: AOx3, CN II-XII grossly intact. No focal motor or sensory deficit. Psychiatric: Good affect; normal thought process; cooperative, no depression, no anxiety. Results - Labs Laboratory Last Values WBC 4.1 X10^3/uL (4.5-11.0) L 05/11/19 09:08 RBC 2.36 X10^6/uL (4.5-5.9) L 05/11/19 09:08 Hgb 9.0 g/dL (13.5-17.5) L 05/11/19 09:08 Hct 26.5 % (41-53) L 05/11/19 09:08 MCV 112.2 fL (80-100) H 05/11/19 09:08 MCH 38.1 PG (26-34) H 05/11/19 09:08 MCHC 34.0 % (30-36) 05/11/19 09:08 RDW 16.3 % (11.6-14.8) H 05/11/19 09:08 Plt Count 217 X10^3/uL (150-400) 05/11/19 09:08 Neut % (Auto) Not Reportable 05/11/19 09:08 Lymph % (Auto) Not Reportable 05/11/19 09:08 [place] % (Auto) Not Reportable 05/11/19 09:08 Eos % (Auto) Not Reportable 05/11/19 09:08 Baso % (Auto) Not Reportable 05/11/19 09:08 Neut # (Auto) 2200 /uL ([id number]) 12/17/18 09:09 Lymph # (Auto) Not Reportable 05/11/19 09:08 [place] # (Auto) Not Reportable 05/11/19 09:08 Eos # (Auto) 100 /uL (0-450) 12/17/18 09:09 Baso # (Auto) Not Reportable 05/11/19 09:08 Total Counted 100 05/11/19 09:08 Seg Neutrophils % 35.0 % (38-70) L 05/11/19 09:08 Band Neutrophils % 7.0 % (3-7) 05/11/19 09:08 Lymphocytes % (Manual) 40.0 % (25-45) 05/11/19 09:08 Atypical Lymphs % 3.0 % (-0) H 05/11/19 09:08 Monocytes % (Manual) 11.0 % (2-11) 05/11/19 09:08 Eosinophils % (Manual) 1.0 % (2-4) L 05/11/19 09:08 Metamyelocytes % 2.0 % (-0) H 05/11/19 09:08 Myelocytes % 1.0 % (-0) H 05/11/19 09:08 Neutrophils # (Manual) 1722 /uL (4885-4080) L 05/11/19 09:08 Hypersegmented Neuts 1+ 06/21/18 13:59 Platelet Estimate Increased on smear 04/26/18 14:55 Plt Morphology Comment Note: 04/26/18 14:55 RBC Morphology Not Reportable 05/11/19 09:08 Polychromasia 1+ H 05/11/19 09:08 Hypochromasia 1+ H 05/11/19 09:08 Poikilocytosis 1+ H 07/05/18 08:22 Anisocytosis 2+ H 05/11/19 09:08 Macrocytosis 2+ H 03/24/19 08:29 Tear Drop Cells 1+ H 05/11/19 09:08 Schistocytes 1+ H 06/21/18 13:59 Sodium 140 mmol/L (137-145) 03/24/19 08:29 Potassium 4.3 mmol/L (3.4-5.1) 03/24/19 08:29 Chloride 105 mmol/L (98-107) 03/24/19 08:29 Carbon Dioxide 25 mmol/L (22-32) 03/24/19 08:29 BUN 22 mg/dL (9-20) H 03/24/19 08:29 Creatinine 1.10 mg/dL (0.66-1.25) 03/24/19 08:29 Estimated GFR > 60.0 mL/min (>60) 03/24/19 08:29 BUN/Creatinine Ratio 20.0 (6-22) 03/24/19 08:29 Glucose 121 mg/dL (80-110) H 03/24/19 08:29 Calcium 8.9 mg/dL (8.4-10.2) 03/24/19 08:29 Total Bilirubin 0.5 mg/dL (0.2-1.3) 03/24/19 08:29 AST 32 IU/L (17-59) 03/24/19 08:29 ALT 31 IU/L (21-72) 03/24/19 08:29 Alkaline Phosphatase 57 U/L (38-126) 03/24/19 08:29 Lactate Dehydrogenase 544 U/L (313-618) 08/12/18 08:53 Total Protein 7.3 g/dL (6.3-8.2) 03/24/19 08:29 Albumin 4.4 g/dL (3.5-5.0) 03/24/19 08:29 Globulin 2.9 g/dL (1.7-4.1) 03/24/19 08:29 Albumin/Globulin Ratio 1.5 (1.0-2.8) 03/24/19 08:29 Assessment and Plan (1) Essential thrombocytosis Overveiw: Essential thrombocytosis, 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 Assessment: Today, I reviewed the lab tests with the patient. Patient's platelet counts have remained within the normal range. However patient has significantly elevated total white blood cell count of more than 20,000 and also significant anemia. He denies any bleeding events. He denies use of steroids. I talked with the patient that the exact etiology of these new changes is not clear at this moment. Possibility including stress, progression of underlying essential thrombocytosis with possible myelofibrosis. Clinically patient has been doing well and I think myeloid leukemia transformation is less likely. I talked with the patient that I will have him come back in about a week and repeat the lab tests. If the white cell count remains elevated or even higher, I will schedule and bone marrow aspiration and biopsy. If it improves, I will continue current treatment without changes. Plan: 1. Continue Hydrea to 500 mg every other day 2. CBC, CMP in one week. 2. RTC MD in 4 weeks, repeat CBC, CMP (2) Anemia Overview: Macrocytic, likely related to use of Hydrea. Possibly myelofibross? Assessment: Continue Hydrea to 500 mg every other days. Plan: CBC, CMP and BMA/Bx? Transfusion threshold: H/H 01/09. (3) VTE (venous thromboembolism) Status: Acute Overveiw: Acute onset of right lower extremity occlusive deep venous thrombosis as well as pulmonary embolism involving the right lung on 06/20/2019. Patient admitted to long distance driving around 2018 that could be the trigger factor. Assessment Patient currently is taking Coumadin. Plan : F/u with Dr. Elkins for INR monitoring and Coumadin dose adjustment.
[2019-08-08 13:13] LABS: Mean Corpuscular HGB Conc 33.3 % (30-36); Mean Corpuscular Hemoglobin 33.4 PG (26-34); Mean Corpuscular Volume 100.5 fL (80-100); Platelet Count 148 X10^3/uL (150-400); Red Blood Cell Count 1.96 X10^6/uL (4.5-5.9); Red Cell Distribution Width 23.2 % (11.6-14.8); White Blood Cell Count 14.1 X10^3/uL (4.5-11.0)
[2019-08-08 13:18] LABS: Alanine Aminotransferase 19 IU/L (<50); Albumin 4.6 g/dL (3.5-5.0); Albumin Globulin Ratio 1.3 (1.0-2.8); Alkaline Phosphatase 64 U/L (38-126); Aspartate Aminotransferase 37 IU/L (17-59); BUN Creatinine Ratio 17.7 (6-22); Bilirubin Total 0.7 mg/dL (0.2-1.3); Blood Urea Nitrogen 23 mg/dL (9-20); Carbon Dioxide 24 mmol/L (22-32); Chloride 105 mmol/L (98-107); Estimated Glomerular Filt Rate 54.3 mL/min (>60); Globulin 3.5 g/dL (1.7-4.1); Glucose 132 mg/dL (80-110); HEMOLYSIS < 15 (0-50); Potassium 4.3 mmol/L (3.4-5.1); Sodium 139 mmol/L (137-145); Total Protein 8.1 g/dL (6.3-8.2)
[2019-08-08 13:20] LABS: Hemoglobin 6.6 g/dL (13.5-17.5)
[2019-08-08 13:21] LABS: Add Manual Diff / Slide Review YES; Hematocrit 19.7 % (41-53)
--- NOTE | 2019-08-08 13:36 | ONC.PN ---
PN -Subjective Interval history: ID/CC: 74 year old with ET JAK2 V617F positve here for scheduled follow up visit. Oncologic History: 74-year-old gentleman referred by Dr. Elkins for evaluation and management of anemia and thrombocytosis. On December 25, 2017 he was seen for swollen lymph nodes in his groin. Examination at that time reported small, bilateral inguinal lymph nodes ranging approximately 0.5 cm. His routine labs demonstrated WBC 5600, ANC 3472, hemoglobin 11.0, hematocrit 32.0, MCV 88.3, and platelet count 1,011,000. Sedimentation rate 13, CRP < 0.5, BUN 21, creatinine 1.10, calcium 9.2, glucose 88, B12 717, sodium 144, and potassium 5.3. He was also seen at that time by ortho for burning, neuropathic pain in his feet. He was then referred to surgeon Dr. Jones who on January 19, 2018 performed colonoscopy with findings of 4 reportedly benign polyps. Patient was then seen by oncologist Dr. Ortega on January 21, 2018. Lab results that visit demonstrated white cell 7.2, hemoglobin 10.6, hematocrit 30.7, platelets [id number], ANC 5.0, reticulocyte 1.2%, creatinine 1.0, LDH 747, iron 83, TIBC 308, saturation 27%, transferrin 230. JAK2 V617F mutation was positive. Patient subsequently underwent bone marrow aspiration February 23, 2018. The hematopathology demonstrated hypercellular marrow for age (65% cellular) with marked megakaryocytic hyperplasia, megakaryocytic atypia and mild myeloid hyperplasia without expanded blasts. There was mild marrow reticulin fibrosis by special stain (MF 1+ out of 3). Flow cytometry demonstrated no abnormal blast or myeloid cell population identified, and no abnormal B-cell or T-cell population identified. Cytogenic studies demonstrated the karyotype is normal 46 XY[20]. Treatment with hydroxyurea was initiated March 05, 2018. On 06/20/2019, patient developed fever, right upper chest pain especially when taking deep breath, shortness breath, and right leg weakness. He presented to [facility] Emergency Room and was diagnosed with subsegmental pulmonary emboli in the right lower lobe after CT angiogram. Ultrasound of the lower extremities showed occlusive thrombus involving the right common femoral and superficial femoral veins. Patient was started on heparin drip which was later transitioned to Lovenox injection. After he was discharged from the hospital, it was transitioned to Coumadin. While in the hospital, patient was found to have low hemoglobin level as low as 7.1 requiring blood transfusion. On admission, his white cell count 20.8. On discharge it has normalized to 8.6. Patient admitted that during 2018, patient drove continuously for more than 12 hours in the car without taking a break. Inteirm Events: Patient presents here today for scheduled follow-up visit. He has now taking hydroxyurea 500 mg every other day, and Coumadin 10 mg daily for 6 days and 5 mg once a day. Patient said that he has been feeling very tired, especially on exertion. Patient denies any chest pain. Patient reports so-so appetite. He said that his forced him to eat, otherwise he would not have any desire. He denies any bleeding in the stool or black stool. He denies any abdominal pain diarrhea or constipation. He denies any black stool either. He has been followed by Dr. Elkins for INR/Coumadin monitoring. - Patient Self-Reported Symptoms SR ears, nose, mouth, throat issues: Swollen glands SR Cardiovascular issues: Chest pain, discomfort, tightness SR Genitourinary issues: Change in stream SR Hematologic issues: Swollen lymph nodes - Additional ROS All systems PM: reviewed and no additional remarkable complaints except as stated Home Medications and Allergies Home Medications Medication Instructions Recorded Confirmed Type famotidine 20 mg tablet 20 mg PO BID 07/01/19 08/08/19 History hydroxyurea 500 mg capsule 500 mg PO Q OTHER DAY cap 07/01/19 08/08/19 History warfarin 5 mg tablet 5 mg PO DAILY #60 tab 07/27/19 08/08/19 Rx Allergies Allergy/AdvReac Type Severity Reaction Status Date / Time No Known Drug Allergies Allergy Verified 07/01/19 14:15 Exam Vital signs: Intake and Output 08/07/19 08/08/19 08/08/19 23:59 07:59 15:59 Other: Weight 80.1 kg Patient Weight 08/08/19 23:59 Weight 80.1 kg Narrative: Gen: WDWN, NAD, pleasant and cooperative. HEENT: NCAT, EOMI, PERRLA, anicteric sclera. Neck: Supple, No palpable thyromegaly or lymphadenopathy. Respiratory: CTAB, no wheezes audible. No JVD Cardiovascular: RRR, S1 and S2 normal, no M/G/R. Abdomen: Soft, NTND, BS normal, no palpable organomegaly Extremities: No LE pitting edema. Lymphatic: no palpable lymph nodes in the neck, axillae Neurological: AOx3, CN II-XII grossly intact. No focal motor or sensory deficit. Psychiatric: Good affect; normal thought process; cooperative, no depression, no anxiety. Results - Labs Laboratory Last Values WBC 14.1 X10^3/uL (4.5-11.0) H 08/08/19 12:54 RBC 1.96 X10^6/uL (4.5-5.9) L 08/08/19 12:54 Hgb 6.6 g/dL (13.5-17.5) L* 08/08/19 12:54 Hct 19.7 % (41-53) L* 08/08/19 12:54 MCV 100.5 fL (80-100) H 08/08/19 12:54 MCH 33.4 PG (26-34) 08/08/19 12:54 MCHC 33.3 % (30-36) 08/08/19 12:54 RDW 23.2 % (11.6-14.8) H 08/08/19 12:54 Plt Count 148 X10^3/uL (150-400) L 08/08/19 12:54 Neut % (Auto) Not Reportable 08/08/19 12:54 Lymph % (Auto) Not Reportable 08/08/19 12:54 [place] % (Auto) Not Reportable 08/08/19 12:54 Eos % (Auto) Not Reportable 08/08/19 12:54 Baso % (Auto) Not Reportable 08/08/19 12:54 Neut # (Auto) 2200 /uL (4159-7683) 12/17/18 09:09 Lymph # (Auto) Not Reportable 08/08/19 12:54 [place] # (Auto) Not Reportable 08/08/19 12:54 Eos # (Auto) 100 /uL (0-450) 12/17/18 09:09 Baso # (Auto) Not Reportable 08/08/19 12:54 Total Counted 100 05/11/19 09:08 Seg Neutrophils % 35.0 % (38-70) L 05/11/19 09:08 Band Neutrophils % 7.0 % (3-7) 05/11/19 09:08 Lymphocytes % (Manual) 40.0 % (25-45) 05/11/19 09:08 Atypical Lymphs % 3.0 % (-0) H 05/11/19 09:08 Monocytes % (Manual) 11.0 % (2-11) 05/11/19 09:08 Eosinophils % (Manual) 1.0 % (2-4) L 05/11/19 09:08 Metamyelocytes % 2.0 % (-0) H 05/11/19 09:08 Myelocytes % 1.0 % (-0) H 05/11/19 09:08 Neutrophils # (Manual) 1722 /uL (3022-5829) L 05/11/19 09:08 Hypersegmented Neuts 1+ 06/21/18 13:59 Platelet Estimate Increased on smear 04/26/18 14:55 Plt Morphology Comment Note: 04/26/18 14:55 RBC Morphology Not Reportable 05/11/19 09:08 Polychromasia 1+ H 05/11/19 09:08 Hypochromasia 1+ H 05/11/19 09:08 Poikilocytosis 1+ H 07/05/18 08:22 Anisocytosis 2+ H 05/11/19 09:08 Macrocytosis 2+ H 03/24/19 08:29 Tear Drop Cells 1+ H 05/11/19 09:08 Schistocytes 1+ H 06/21/18 13:59 Sodium 139 mmol/L (137-145) 08/08/19 12:54 Potassium 4.3 mmol/L (3.4-5.1) 08/08/19 12:54 Chloride 105 mmol/L (98-107) 08/08/19 12:54 Carbon Dioxide 24 mmol/L (22-32) 08/08/19 12:54 BUN 23 mg/dL (9-20) H 08/08/19 12:54 Creatinine 1.30 mg/dL (0.66-1.25) H 08/08/19 12:54 Estimated GFR 54.3 mL/min (>60) L 08/08/19 12:54 BUN/Creatinine Ratio 17.7 (6-22) 08/08/19 12:54 Glucose 132 mg/dL (80-110) H 08/08/19 12:54 Calcium 9.0 mg/dL (8.4-10.2) 08/08/19 12:54 Total Bilirubin 0.7 mg/dL (0.2-1.3) 08/08/19 12:54 AST 37 IU/L (17-59) 08/08/19 12:54 ALT 19 IU/L (<50) 08/08/19 12:54 Alkaline Phosphatase 64 U/L (38-126) 08/08/19 12:54 Lactate Dehydrogenase 544 U/L (313-618) 08/12/18 08:53 Total Protein 8.1 g/dL (6.3-8.2) 08/08/19 12:54 Albumin 4.6 g/dL (3.5-5.0) 08/08/19 12:54 Globulin 3.5 g/dL (1.7-4.1) 08/08/19 12:54 Albumin/Globulin Ratio 1.3 (1.0-2.8) 08/08/19 12:54 Assessment and Plan (1) Essential thrombocytosis Overveiw: Essential thrombocytosis, 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 He is now receiving hydroxyurea 500 mg every other day. Since March 2019, patient developed progressive worsening anemia. In addition patient also developed significant thrombocytopenia. No bleeding events. Assessment: Clinically, patient is reporting significant fatigue that could be due to the severe anemia. The CBC with differentials showed presence of approved myelocytes, myelocytes, and metamyelocytes. I talked with the patient and his that the findings are suspicious for possible leukemic transformation. I will proceed with bone marrow aspiration and biopsy today. Plan: 1. Continue Hydrea to 500 mg every other day 2. BMA/Bx today 3. RTC MD in 2 weeks, repeat CBC, CMP, Ferritin (2) Anemia Overview: Macrocytic, likely related to use of Hydrea. Possibly myelofibross? leukemia transformation? Assessment: He is now on Hydrea to 500 mg every other days. His H/H are 6.6/19.7. Plan: Transfusion threshold: H/H 01/09. pRBC 2 units today (3) VTE (venous thromboembolism) Status: Acute Overview: Acute onset of right lower extremity occlusive deep venous thrombosis as well as pulmonary embolism involving the right lung on 06/20/2019. Patient admitted to long distance driving around 2018 that could be the trigger factor. Assessment Patient currently is taking Coumadin. Plan : F/u with Dr. Elkins for INR monitoring and Coumadin dose adjustment.
[2019-08-08 13:50] LABS: Neutrophils Absolute Manual 7191 /uL (3000-5900); Total Cells Counted 100
[2019-08-08 13:51] LABS: Anisocytosis 3+
[2019-08-08 13:53] LABS: Polychromasia 1+; Tear Drop Cells 1+
[2019-08-08 15:09] VITALS: BP 129/69; PULSE 71; RESP 18; TEMP 36.4; O2SAT 98
[2019-08-08 16:09] VITALS: BP 125/64; PULSE 75; RESP 16; TEMP 37
[2019-08-08 16:29] VITALS: BP 111/50; PULSE 68; RESP 16; TEMP 36.7
--- NOTE | 2019-08-08 17:01 | P.PCN_ITS ---
Date of procedure: 08/08/19 Diagnosis: Essential thrombocytosis, now with severe anemia Onc Bone Marrow: bone marrow biopsy and aspiration Procedure: Patient was instructed to lie on his left side. Right posterior iliac crest was identified, prepped, sterilized, and draped per standard protocol. After local anesthesia was obtained with injection of 2% lidocaine, NOSTROMO ICT bone marrow biopsy needle was inserted. I obtained a 3 cm long good core sample. There after using the same needle I inserted into the bone marrow and aspirated about 20 cc of bone marrow sample. Patient tolerated the procedure well. No immediate complications. I talked with the patient that will have him come back in about 1 week to check for CBC. I will have him come back in 2 weeks to review the bone marrow aspiration biopsy results.
[2019-08-08 18:32] VITALS: BP 123/61; PULSE 70; RESP 19; TEMP 36.1
[2019-08-09 09:44] VITALS: BP 132/72; PULSE 69; RESP 15; TEMP 36.3; O2SAT 95
[2019-08-09 09:53] VITALS: BP 132/72; PULSE 69; RESP 15; TEMP 36.3
[2019-08-09 10:11] VITALS: BP 127/73; PULSE 67; RESP 18; TEMP 36.7
[2019-08-09 12:08] VITALS: BP 132/72; PULSE 67; RESP 18; TEMP 36.7
[2019-08-15 10:36] LABS: Hematocrit 25.2 % (41-53); Hemoglobin 8.4 g/dL (13.5-17.5); Mean Corpuscular HGB Conc 33.2 % (30-36); Mean Corpuscular Hemoglobin 32.5 PG (26-34); Mean Corpuscular Volume 97.7 fL (80-100); Platelet Count 126 X10^3/uL (150-400); Red Blood Cell Count 2.58 X10^6/uL (4.5-5.9); Red Cell Distribution Width 21.4 % (11.6-14.8); White Blood Cell Count 12.3 X10^3/uL (4.5-11.0)
[2019-08-15 10:37] LABS: Add Manual Diff / Slide Review YES
[2019-08-15 10:46] LABS: Alanine Aminotransferase 20 IU/L (<50); Albumin 4.7 g/dL (3.5-5.0); Albumin Globulin Ratio 1.3 (1.0-2.8); Alkaline Phosphatase 60 U/L (38-126); Aspartate Aminotransferase 36 IU/L (17-59); BUN Creatinine Ratio 15.7 (6-22); Bilirubin Total 0.7 mg/dL (0.2-1.3); Blood Urea Nitrogen 22 mg/dL (9-20); Calcium 9.2 mg/dL (8.4-10.2); Carbon Dioxide 26 mmol/L (22-32); Chloride 107 mmol/L (98-107); Estimated Glomerular Filt Rate 49.8 mL/min (>60); Globulin 3.6 g/dL (1.7-4.1); Glucose 115 mg/dL (80-110); HEMOLYSIS < 15 (0-50); Potassium 4.6 mmol/L (3.4-5.1); Sodium 142 mmol/L (137-145); Total Protein 8.3 g/dL (6.3-8.2)
[2019-08-15 10:59] LABS: Neutrophils Absolute Manual 6273 /uL (3000-5900); Nucleated Red Blood Cells 1 #/Diff; Total Cells Counted 100
[2019-08-15 11:00] LABS: Anisocytosis 3+; Poikilocytosis 1+
[2019-08-15 11:21] LABS: Ferritin 550 ng/mL (18-464)
[2019-08-22 09:15] LABS: Add Manual Diff / Slide Review YES; Hematocrit 22.2 % (41-53); Hemoglobin 7.5 g/dL (13.5-17.5); Mean Corpuscular HGB Conc 33.7 % (30-36); Mean Corpuscular Hemoglobin 32.2 PG (26-34); Mean Corpuscular Volume 95.7 fL (80-100); Platelet Count 135 X10^3/uL (150-400); Red Blood Cell Count 2.32 X10^6/uL (4.5-5.9); Red Cell Distribution Width 21.2 % (11.6-14.8); White Blood Cell Count 13.5 X10^3/uL (4.5-11.0)
[2019-08-22 09:55] LABS: Anisocytosis 3+; Macrocytosis 2+; Neutrophils Absolute Manual 5940 /uL (3000-5900); Nucleated Red Blood Cells 1 #/Diff; Polychromasia 2+; Total Cells Counted 100
[2019-08-22 09:56] LABS: Basophilic Stippling 1+
[2019-08-22 12:30] VITALS: BP 122/69; PULSE 74; RESP 16; TEMP 36.7; O2SAT 96
--- NOTE | 2019-08-22 12:50 | ONC.PN ---
PN -Subjective Interval history: ID/CC: 74 year old with ET JAK2 V617F positve here for scheduled follow up visit. Oncologic History: 74-year-old gentleman referred by Dr. Elkins for evaluation and management of anemia and thrombocytosis. On December 25, 2017 he was seen for swollen lymph nodes in his groin. Examination at that time reported small, bilateral inguinal lymph nodes ranging approximately 0.5 cm. His routine labs demonstrated WBC 5600, ANC 3472, hemoglobin 11.0, hematocrit 32.0, MCV 88.3, and platelet count 1,011,000. Sedimentation rate 13, CRP < 0.5, BUN 21, creatinine 1.10, calcium 9.2, glucose 88, B12 717, sodium 144, and potassium 5.3. He was also seen at that time by ortho for burning, neuropathic pain in his feet. He was then referred to surgeon Dr. Jones who on January 19, 2018 performed colonoscopy with findings of 4 reportedly benign polyps. Patient was then seen by oncologist Dr. Ortega on January 21, 2018. Lab results that visit demonstrated white cell 7.2, hemoglobin 10.6, hematocrit 30.7, platelets [id number], ANC 5.0, reticulocyte 1.2%, creatinine 1.0, LDH 747, iron 83, TIBC 308, saturation 27%, transferrin 230. JAK2 V617F mutation was positive. Patient subsequently underwent bone marrow aspiration February 23, 2018. The hematopathology demonstrated hypercellular marrow for age (65% cellular) with marked megakaryocytic hyperplasia, megakaryocytic atypia and mild myeloid hyperplasia without expanded blasts. There was mild marrow reticulin fibrosis by special stain (MF 1+ out of 3). Flow cytometry demonstrated no abnormal blast or myeloid cell population identified, and no abnormal B-cell or T-cell population identified. Cytogenic studies demonstrated the karyotype is normal 46 XY[20]. Treatment with hydroxyurea was initiated March 05, 2018. On 06/20/2019, patient developed fever, right upper chest pain especially when taking deep breath, shortness breath, and right leg weakness. He presented to [facility] Emergency Room and was diagnosed with subsegmental pulmonary emboli in the right lower lobe after CT angiogram. Ultrasound of the lower extremities showed occlusive thrombus involving the right common femoral and superficial femoral veins. Patient was started on heparin drip which was later transitioned to Lovenox injection. After he was discharged from the hospital, it was transitioned to Coumadin. While in the hospital, patient was found to have low hemoglobin level as low as 7.1 requiring blood transfusion. On admission, his white cell count 20.8. On discharge it has normalized to 8.6. Patient admitted that during 2018, patient drove continuously for more than 12 hours in the car without taking a break. Inteirm Events: Patient presents here today for scheduled follow-up visit to review the bone marrow aspiration and biopsy result. He has now taking hydroxyurea 500 mg every other day, and Coumadin 10 mg daily for 6 days and 5 mg once a day. Clinically, patient said that he has felt okay. He may have mild fatigue. He denies any shortness of breath or chest pain. He denies any fever or chills. He denies any abdominal pain diarrhea or constipation. Patient underwent bone marrow aspiration and biopsy on 08/08/2019. 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 MDS fish panel was normal (no evidence for monosomy 5 or 7, deletion 5q, 7q, or 20q, or trisomy 8). Patient has a normal karyotype. Flow cytometry showed no evidence of definitively diagnostic immunophenotypic abnormality. Summary of Treatments: 1. Hydroxyurea 03/05/2018 - Patient Self-Reported Symptoms SR Constitution: Fatigue/Malaise SR ears, nose, mouth, throat issues: Ears ringing SR Cardiovascular issues: Dizzy/lightheaded SR Genitourinary issues: Change in stream SR Hematologic issues: Swollen lymph nodes - Additional ROS All systems PM: reviewed and no additional remarkable complaints except as stated Home Medications and Allergies Home Medications Medication Instructions Recorded Confirmed Type famotidine 20 mg tablet 20 mg PO BID 07/01/19 08/22/19 History hydroxyurea 500 mg capsule 500 mg PO Q OTHER DAY cap 07/01/19 08/22/19 History warfarin 5 mg tablet 5 mg PO DAILY #60 tab 07/27/19 08/22/19 Rx ruxolitinib [Jakafi] 10 mg PO BID #60 tab 08/22/19 Rx Allergies Allergy/AdvReac Type Severity Reaction Status Date / Time No Known Drug Allergies Allergy Verified 07/01/19 14:15 Exam Vital signs: Vital Signs Temp Pulse Resp BP Pulse Ox 08/22/19 12:30 98.1 F 74 16 122/69 96 Intake and Output 03/01/20 03/02/20 03/02/20 23:59 07:59 15:59 Other: Weight 82.2 kg Patient Weight 08/22/19 23:59 Weight 82.2 kg Narrative: Gen: WDWN, NAD, pleasant and cooperative. HEENT: NCAT, EOMI, PERRLA, anicteric sclera. Neck: Supple, No palpable thyromegaly or lymphadenopathy. Respiratory: CTAB, no wheezes audible. No JVD Cardiovascular: RRR, S1 and S2 normal, no M/G/R. Abdomen: Soft, NTND, BS normal, no palpable organomegaly Extremities: No LE pitting edema. Lymphatic: no palpable lymph nodes in the neck, axillae Neurological: AOx3, CN II-XII grossly intact. No focal motor or sensory deficit. Psychiatric: Good affect; normal thought process; cooperative, no depression, no anxiety. Results - Labs Laboratory Last Values WBC 13.5 X10^3/uL (4.5-11.0) H 08/22/19 09:04 RBC 2.32 X10^6/uL (4.5-5.9) L 08/22/19 09:04 Hgb 7.5 g/dL (13.5-17.5) L 08/22/19 09:04 Hct 22.2 % (41-53) L 08/22/19 09:04 MCV 95.7 fL (80-100) 08/22/19 09:04 MCH 32.2 PG (26-34) 08/22/19 09:04 MCHC 33.7 % (30-36) 08/22/19 09:04 RDW 21.2 % (11.6-14.8) H 08/22/19 09:04 Plt Count 135 X10^3/uL (150-400) L 08/22/19 09:04 Neut % (Auto) Not Reportable 08/22/19 09:04 Lymph % (Auto) Not Reportable 08/22/19 09:04 [place] % (Auto) Not Reportable 08/22/19 09:04 Eos % (Auto) Not Reportable 08/22/19 09:04 Baso % (Auto) Not Reportable 08/22/19 09:04 Neut # (Auto) 2200 /uL (4701-7574) 12/17/18 09:09 Lymph # (Auto) Not Reportable 08/22/19 09:04 [place] # (Auto) Not Reportable 08/22/19 09:04 Eos # (Auto) 100 /uL (0-450) 12/17/18 09:09 Baso # (Auto) Not Reportable 08/22/19 09:04 Total Counted 100 08/22/19 09:04 Seg Neutrophils % 25.0 % (38-70) L 08/22/19 09:04 Band Neutrophils % 19.0 % (3-7) H 08/22/19 09:04 Lymphocytes % (Manual) 16.0 % (25-45) L 08/22/19 09:04 Atypical Lymphs % 4.0 % (-0) H 08/22/19 09:04 Monocytes % (Manual) 15.0 % (2-11) H 08/22/19 09:04 Eosinophils % (Manual) 2.0 % (2-4) 08/22/19 09:04 Metamyelocytes % 9.0 % (-0) H 08/22/19 09:04 Myelocytes % 8.0 % (-0) H 08/22/19 09:04 Promyelocytes % 1.0 % (-0) H 08/22/19 09:04 Blast Cells % 1.0 % (-0) H 08/22/19 09:04 Neutrophils # (Manual) 5940 /uL (3946-5023) H 08/22/19 09:04 Nucleated RBCs 1 #/Diff (-0) H 08/22/19 09:04 Hypersegmented Neuts 1+ 06/21/18 13:59 Platelet Estimate Increased on smear 04/26/18 14:55 Plt Morphology Comment Note: 04/26/18 14:55 RBC Morphology Not Reportable 08/22/19 09:04 Polychromasia 2+ H 08/22/19 09:04 Hypochromasia 1+ H 05/11/19 09:08 Poikilocytosis 1+ H 08/15/19 10:22 Basophilic Stippling 1+ H 08/22/19 09:04 Anisocytosis 3+ H 08/22/19 09:04 Macrocytosis 2+ H 08/22/19 09:04 Tear Drop Cells 1+ H 08/08/19 12:54 Schistocytes 1+ H 06/21/18 13:59 Sodium 142 mmol/L (137-145) 08/15/19 10:22 Potassium 4.6 mmol/L (3.4-5.1) 08/15/19 10:22 Chloride 107 mmol/L (98-107) 08/15/19 10:22 Carbon Dioxide 26 mmol/L (22-32) 08/15/19 10:22 BUN 22 mg/dL (9-20) H 08/15/19 10:22 Creatinine 1.40 mg/dL (0.66-1.25) H 08/15/19 10:22 Estimated GFR 49.8 mL/min (>60) L 08/15/19 10:22 BUN/Creatinine Ratio 15.7 (6-22) 08/15/19 10:22 Glucose 115 mg/dL (80-110) H 08/15/19 10:22 Calcium 9.2 mg/dL (8.4-10.2) 08/15/19 10:22 Ferritin 550 ng/mL (18-464) H 08/15/19 10:22 Total Bilirubin 0.7 mg/dL (0.2-1.3) 08/15/19 10:22 AST 36 IU/L (17-59) 08/15/19 10:22 ALT 20 IU/L (<50) 08/15/19 10:22 Alkaline Phosphatase 60 U/L (38-126) 08/15/19 10:22 Lactate Dehydrogenase 544 U/L (313-618) 08/12/18 08:53 Total Protein 8.3 g/dL (6.3-8.2) H 08/15/19 10:22 Albumin 4.7 g/dL (3.5-5.0) 08/15/19 10:22 Globulin 3.6 g/dL (1.7-4.1) 08/15/19 10:22 Albumin/Globulin Ratio 1.3 (1.0-2.8) 08/15/19 10:22 Blood Type A Positive 08/08/19 12:57 Antibody Screen Negative 08/08/19 12:57 Crossmatch See Detail 08/08/19 12:57 Assessment and Plan (1) Myelofibrosis Overveiw: Essential thrombocytosis, 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 He is now receiving hydroxyurea 500 mg every other day. Since March 2019, patient developed progressive worsening anemia. In addition patient also developed significant thrombocytopenia. No bleeding events. Bone marrow aspiration and biopsy on 08/08/2019 showed evidence of post ET myelofibrosis. No evidence of acute myeloid leukemia. Assessment: Today I reviewed the bone marrow aspiration biopsy results with the patient. The bone marrow showed no evidence of acute myeloid leukemia. No evidence of MDS. It did show evidence of myelofibrosis. I explained to the patient this is probably representing the natural disease progression from his diagnosis of essential thrombocytosis. I talked with him that I will obtain ultrasound study to evaluate for possible hepatosplenomegaly. In addition I would recommend that we stop Hydrea given the anemia and thrombocytopenia and will get pre authorization for Jakafi. Patient voiced understanding. More importantly I talked with him that we need to monitor the blood counts weekly. And we will provide blood transfusion on as needed basis. Plan: 1. Stop Hydrea to 500 mg every other day 2. Pre-auth Jakafi 10 mg bid 3. US abd limited to evaluate hepatic splenomegaly. 4. Return to clinic to evaluate CBC. 5. RTC MD in 2 weeks, repeat CBC (2) Essential thrombocytosis See discussion in Myeolofibrosis above (3) Anemia Overview: Macrocytic, likely related to use of Hydrea and possibly myelofibross Assessment: Stop Hydrea to 500 mg every other days. Plan: Transfusion threshold: H/H 01/09. CBC weekly No pRBC transfusion indicated today (4) Thrombocytopenia Overview: Macrocytic, likely related to use of Hydrea and myelofibross Assessment: Stop Hydrea to 500 mg every other days (see above) Plan: Transfusion threshold: Platelet < 20 K or bleeding CBC weekly No Platelet transfusion indicated today (5) VTE (venous thromboembolism) Overview: Acute onset of right lower extremity occlusive deep venous thrombosis as well as pulmonary embolism involving the right lung on 06/20/2019. Patient admitted to long distance driving around 2018 that could be the trigger factor. Assessment Patient currently is taking Coumadin. Plan : F/u with Dr. Elkins for INR monitoring and Coumadin dose adjustment.
--- NOTE | 2019-08-23 11:29 | ONC.SCHED ---
Maritza Belcher and we will here determination within 24 hours from Amy Mckeon. The ID#[id number] Bin#[id number] PCN#[id number] RX Grp #[id number] Phone number for RX Delivery is [phone]. The ref# for the call to check back is [id number] Spoke with Evon.
--- NOTE | 2019-08-23 15:59 | ONC.SCHED ---
Received approval letter for Simi dorsey through 02/19/20. I have scanned in the approval letter. The patient has [employer] RX coverage and did not specify any certain pharmacy request. Krystina has been notified and will check with Zoë on next steps.
--- NOTE | 2019-08-23 16:08 | PC.NURSE ---
[facility]: THIS NURSE WAS INFORMED OF PA APPROVAL AND FAXED RX TO [facility] AT [phone], THEIR PHONE IS [phone]. PATIENT INFORMED PER TELEPHONE THAT [facility] WILL BE CONTACTING HIM TO LET HIM KNOW OF COPAY AND THAT HE CAN SPEAK WITH OUR MUSEUM EDUCATOR ABOUT COPAY ASSISTANCE IF NECESSARY.
--- NOTE | 2019-08-30 10:27 | ONC.MSW ---
Description: [employer] Co-Pay Assistance Activity: Completed and faxed pt's application for co-pay assistance to . Will f/u with pt once a determination has been made.
--- NOTE | 2019-09-01 15:27 | ONC.MSW ---
[employer] Co-Pay Assistance Status Activity: Called [employer] to check on the status of pt's co-pay assistance. Pt was approved as of today. Called [facility] and provided the assistance information, they will process the prescription and call pt to arrange for delivery. Please see approval details below: Approval: 08/30/19-06/21/20 ID#[id number] BIN: [id number] PCN: [id number] Group: [id number]
[2019-09-05 07:55] LABS: Hematocrit 21.5 % (41-53); Mean Corpuscular HGB Conc 32.4 % (30-36); Mean Corpuscular Hemoglobin 31.2 PG (26-34); Mean Corpuscular Volume 96.2 fL (80-100); Platelet Count 131 X10^3/uL (150-400); Red Blood Cell Count 2.24 X10^6/uL (4.5-5.9)
[2019-09-05 08:31] LABS: Add Manual Diff / Slide Review YES; White Blood Cell Count 30.7 X10^3/uL (4.5-11.0)
[2019-09-05 08:34] LABS: Neutrophils Absolute Manual 12894 /uL (3000-5900); Rouleaux 2+; Total Cells Counted 100
--- NOTE | 2019-09-05 08:58 | P.PNONC_ITS ---
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 Elkins for evaluation and management of anemia and thrombocytosis. On December 25, 2017 he was seen for swollen lymph nodes in his groin. Examination at that time reported small, bilateral inguinal lymph nodes ranging approximately 0.5 cm. His routine labs demonstrated WBC 5600, ANC 3472, hemoglobin 11.0, hematocrit 32.0, MCV 88.3, and platelet count 1,011,000. Sedimentation rate 13, CRP < 0.5, BUN 21, creatinine 1.10, calcium 9.2, glucose 88, B12 717, sodium 144, and potassium 5.3. He was also seen at that time by ortho for burning, neuropathic pain in his feet. He was then referred to surgeon Dr. Jones who on January 19, 2018 performed colonoscopy with findings of 4 reportedly benign polyps. Patient was then seen by oncologist Dr. Ortega on January 21, 2018. Lab results that visit demonstrated white cell 7.2, hemoglobin 10.6, hematocrit 30.7, platelets [id number], ANC 5.0, reticulocyte 1.2%, creatinine 1.0, LDH 747, iron 83, TIBC 308, saturation 27%, transferrin 230. JAK2 V617F mutation was positive. Patient subsequently underwent bone marrow aspiration February 23, 2018. The hematopathology demonstrated hypercellular marrow for age (65% cellular) with marked megakaryocytic hyperplasia, megakaryocytic atypia and mild myeloid hyperplasia without expanded blasts. There was mild marrow reticulin fibrosis by special stain (MF 1+ out of 3). Flow cytometry demonstrated no abnormal blast or myeloid cell population identified, and no abnormal B-cell or T-cell population identified. Cytogenic studies demonstrated the karyotype is normal 46 XY20. Treatment with hydroxyurea was initiated March 05, 2018. On 06/20/2019, patient developed fever, right upper chest pain especially when taking deep breath, shortness breath, and right leg weakness. He presented to [facility] and was diagnosed with subsegmental pulmonary emboli in the right lower lobe after CT angiogram. Ultrasound of the lower extremities showed occlusive thrombus involving the right common femoral and superficial femoral veins. Patient was started on heparin drip which was later transitioned to Lovenox injection. After he was discharged from the hospital, it was transitioned to Coumadin. While in the hospital, patient was found to have low hemoglobin level as low as 7.1 requiring blood transfusion. On admission, his white cell count 20.8. On discharge it has normalized to 8.6. Patient admitted that during of 2018, patient drove continuously for more than 12 hours in the car without taking a break. Patient underwent bone marrow aspiration and biopsy on 08/08/2019. 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 MDS fish panel was normal (no evidence for monosomy 5 or 7, deletion 5q, 7q, or 20q, or trisomy 8). Patient has a normal karyotype. Flow cytometry showed no evidence of definitively diagnostic immunophenotypic abnormality. Inteirm Events: Patient underwent abdominal ultrasound on 08/25/2019. It showed splenomegaly measuring 13.7 x 7.3 cm. No intra or extrahepatic bile duct dilation. Pancreas is sonographically unremarkable. Patient has stopped the hydroxyurea since last visit. Patient said that overall he has not felt anything different. He does feel somewhat fatigued and tired. He denies any shortness of breath or chest pain. Denies nausea vomiting. Pain denies any abdominal signs or sym ptoms. He presents here today for scheduled follow-up visit. Summary of Treatments: 1. Hydroxyurea 03/05/2018-08/22/2019 2. Jakafi 10 mg bid 09/05/2019 -. - Patient Self-Reported Symptoms SR Constitution: Fatigue/Malaise SR ears, nose, mouth, throat issues: Ears ringing SR Cardiovascular issues: Dizzy/lightheaded SR Genitourinary issues: Change in stream SR Hematologic issues: Swollen lymph nodes - Additional ROS All systems PM: reviewed and no additional remarkable complaints except as stated Home Medications and Allergies Home Medications Medication Instructions Recorded Confirmed Type ruxolitinib [Jakafi] 10 mg PO BID #60 tab 08/22/19 Rx warfarin 5 mg tablet 5 mg PO DAILY #100 tab 08/30/19 08/30/19 Rx Allergies Allergy/AdvReac Type Severity Reaction Status Date / Time No Known Drug Allergies Allergy Verified 07/01/19 14:15 Exam Vital signs: Last Vital Signs Temp 98.1 F 09/05/19 09:10 Pulse 71 09/05/19 09:10 Resp 18 09/05/19 09:10 BP 136/75 09/05/19 09:10 Pulse Ox 99 09/05/19 09:10 Narrative: ECOG 1 Gen: WDWN, NAD, pleasant and cooperative. HEENT: NCAT, EOMI, PERRLA, anicteric sclera. Neck: Supple, No palpable thyromegaly or lymphadenopathy. Respiratory: CTAB, no wheezes audible. No JVD Cardiovascular: RRR, S1 and S2 normal, no M/G/R. Abdomen: Soft, NTND, BS normal, no palpable organomegaly Extremities: No LE pitting edema. Lymphatic: no palpable lymph nodes in the neck, axillae Neurological: AOx3, CN II-XII grossly intact. No focal motor or sensory deficit. Psychiatric: Good affect; normal thought process; cooperative, no depression, no anxiety. Results - Labs Laboratory Last Values WBC 30.7 X10^3/uL (4.5-11.0) H* 09/05/19 07:43 RBC 2.24 X10^6/uL (4.5-5.9) L 09/05/19 07:43 Hgb 7.0 g/dL (13.5-17.5) L 09/05/19 07:43 Hct 21.5 % (41-53) L 09/05/19 07:43 MCV 96.2 fL (80-100) 09/05/19 07:43 MCH 31.2 PG (26-34) 09/05/19 07:43 MCHC 32.4 % (30-36) 09/05/19 07:43 RDW 22.0 % (11.6-14.8) H 09/05/19 07:43 Plt Count 131 X10^3/uL (150-400) L 09/05/19 07:43 Neut % (Auto) Not Reportable 09/05/19 07:43 Lymph % (Auto) Not Reportable 09/05/19 07:43 [place] % (Auto) Not Reportable 09/05/19 07:43 Eos % (Auto) Not Reportable 09/05/19 07:43 Baso % (Auto) Not Reportable 09/05/19 07:43 Neut # (Auto) 2200 /uL (4313-7344) 12/17/18 09:09 Lymph # (Auto) Not Reportable 09/05/19 07:43 [place] # (Auto) Not Reportable 09/05/19 07:43 Eos # (Auto) 100 /uL (0-450) 12/17/18 09:09 Baso # (Auto) Not Reportable 09/05/19 07:43 Total Counted 100 09/05/19 07:43 Seg Neutrophils % 35.0 % (38-70) L 09/05/19 07:43 Band Neutrophils % 7.0 % (3-7) 09/05/19 07:43 Lymphocytes % (Manual) 32.0 % (25-45) 09/05/19 07:43 Atypical Lymphs % 5.0 % (-0) H 09/05/19 07:43 Monocytes % (Manual) 4.0 % (2-11) 09/05/19 07:43 Eosinophils % (Manual) 1.0 % (2-4) L 09/05/19 07:43 Metamyelocytes % 4.0 % (-0) H 09/05/19 07:43 Myelocytes % 8.0 % (-0) H 08/22/19 09:04 Promyelocytes % 5.0 % (-0) H 09/05/19 07:43 Blast Cells % 7.0 % (-0) H 09/05/19 07:43 Neutrophils # (Manual) 96652 /uL (8954-8624) H 09/05/19 07:43 Nucleated RBCs 1 #/Diff (-0) H 08/22/19 09:04 Hypersegmented Neuts 1+ 06/21/18 13:59 Platelet Estimate Increased on smear 04/26/18 14:55 Plt Morphology Comment Note: 04/26/18 14:55 RBC Morphology Not Reportable 09/05/19 07:43 Polychromasia 2+ H 08/22/19 09:04 Hypochromasia 1+ H 05/11/19 09:08 Poikilocytosis 1+ H 08/15/19 10:22 Basophilic Stippling 1+ H 08/22/19 09:04 Anisocytosis 3+ H 08/22/19 09:04 Macrocytosis 2+ H 08/22/19 09:04 Tear Drop Cells 1+ H 08/08/19 12:54 Rouleaux 2+ H 09/05/19 07:43 Schistocytes 1+ H 06/21/18 13:59 Sodium 142 mmol/L (137-145) 08/15/19 10:22 Potassium 4.6 mmol/L (3.4-5.1) 08/15/19 10:22 Chloride 107 mmol/L (98-107) 08/15/19 10:22 Carbon Dioxide 26 mmol/L (22-32) 08/15/19 10:22 BUN 22 mg/dL (9-20) H 08/15/19 10:22 Creatinine 1.40 mg/dL (0.66-1.25) H 08/15/19 10:22 Estimated GFR 49.8 mL/min (>60) L 08/15/19 10:22 BUN/Creatinine Ratio 15.7 (6-22) 08/15/19 10:22 Glucose 115 mg/dL (80-110) H 08/15/19 10:22 Calcium 9.2 mg/dL (8.4-10.2) 08/15/19 10:22 Ferritin 550 ng/mL (18-464) H 08/15/19 10:22 Total Bilirubin 0.7 mg/dL (0.2-1.3) 08/15/19 10:22 AST 36 IU/L (17-59) 08/15/19 10:22 ALT 20 IU/L (<50) 08/15/19 10:22 Alkaline Phosphatase 60 U/L (38-126) 08/15/19 10:22 Lactate Dehydrogenase 544 U/L (313-618) 08/12/18 08:53 Total Protein 8.3 g/dL (6.3-8.2) H 08/15/19 10:22 Albumin 4.7 g/dL (3.5-5.0) 08/15/19 10:22 Globulin 3.6 g/dL (1.7-4.1) 08/15/19 10:22 Albumin/Globulin Ratio 1.3 (1.0-2.8) 08/15/19 10:22 Blood Type A Positive 08/08/19 12:57 Antibody Screen Negative 08/08/19 12:57 Crossmatch See Detail 08/08/19 12:57 Assessment and Plan (1) Myelofibrosis Overveiw: Essential thrombocytosis, 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 He was receiving hydroxyurea 500 mg every other day. Since March 2019, patient developed progressive worsening anemia. In addition patient also d eveloped significant thrombocytopenia. No bleeding events. Bone marrow aspiration and biopsy on 08/08/2019 showed evidence of post ET myelofibrosis. No evidence of acute myeloid leukemia. He stopped hydroxyurea on 08/22/2019. Assessment: Patient is expected to receive Jakafi today. I reviewed the lab results with the patient. Leukocytosis has increased consistent with that he stopped Hydrea recently. The platelet counts have remained above 100,000. But the hemoglobin level continues to decrease today it was 7.0. Patient will need 1 unit of blood transfusion. Today I also reviewed the ultrasound study of the abdomen which showed mild splenomegaly consistent myelofibrosis. Today we also discussed about the role of bone marrow transplant. Patient apparently has read about the bone marrow transplant. He understood the risks and the benefit of bone marrow transplant. And he is interested. I talked with him that I will refer him to [facility] for further evaluation. Plan: 1. Start Jakafi 10 mg bid today 2. CBC/CMP in one week 3. Referral to for evaluation of PBSCT 4. RTC MD in 2 weeks, repeat CBC, CMP (2) Essential thrombocytosis See discussion in Myeolofibrosis above (3) Anemia Overview: Macrocytic, likely related to use of Hydrea and possibly myelofibross Assessment: I talked with the patient that his hemoglobin level 7.0. He is about to start KING of the. I am anticipating that the hemoglobin level will continue to decrease and I recommend 1 unit blood transfusion with weekly CBC. Patient voiced understanding. Plan: Transfusion threshold: H/H 01/09. CBC weekly pRBC one unit today (4) Thrombocytopenia Overview: Thrombocytopenia, likely related to myelofibross Assessment: I explained to the patient that we need to monitor CBC closely especially that he is about to start Jakafi Plan: Transfusion threshold: Platelet < 20 K or bleeding CBC weekly No Platelet transfusion indicated today (5) VTE (venous thromboembolism) Overview: Acute onset of right lower extremity occlusive deep venous thrombosis as well as pulmonary embolism involving the right lung on 06/20/2019. Patient admitted to long distance driving around 2018 that could be the trigger factor. Assessment Patient currently is taking Coumadin. Plan : F/u with Dr. Elkins for INR monitoring and Coumadin dose adjustment.
[2019-09-05 09:10] VITALS: BP 136/75; PULSE 71; RESP 18; TEMP 36.7; O2SAT 99
[2019-09-05 11:02] VITALS: BP 117/73; PULSE 68; RESP 16; TEMP 36.3
[2019-09-05 11:18] VITALS: BP 128/74; PULSE 68; RESP 16; TEMP 36.7
[2019-09-05 13:50] VITALS: BP 127/73; PULSE 73; RESP 16; TEMP 36.8
--- NOTE | 2019-09-08 13:51 | ONC.SCHED ---
Referral sent to [facility]
[2019-09-12 10:36] LABS: Hematocrit 23.4 % (41-53); Hemoglobin 7.7 g/dL (13.5-17.5); Mean Corpuscular HGB Conc 33.1 % (30-36); Mean Corpuscular Hemoglobin 31.1 PG (26-34); Mean Corpuscular Volume 93.9 fL (80-100); Platelet Count 95 X10^3/uL (150-400); Red Blood Cell Count 2.49 X10^6/uL (4.5-5.9); Red Cell Distribution Width 19.9 % (11.6-14.8)
[2019-09-12 10:37] LABS: Add Manual Diff / Slide Review YES; White Blood Cell Count 30.5 X10^3/uL (4.5-11.0)
[2019-09-12 10:43] LABS: INR 1.7 (0.9-1.3); Prothrombin Time 19.5 SECONDS (10.1-12.7)
[2019-09-12 10:48] LABS: Alanine Aminotransferase 28 IU/L (<50); Albumin 4.8 g/dL (3.5-5.0); Albumin Globulin Ratio 1.3 (1.0-2.8); Alkaline Phosphatase 61 U/L (38-126); Aspartate Aminotransferase 44 IU/L (17-59); Bilirubin Total 0.6 mg/dL (0.2-1.3); Blood Urea Nitrogen 38 mg/dL (9-20); Calcium 9.1 mg/dL (8.4-10.2); Carbon Dioxide 25 mmol/L (22-32); Chloride 105 mmol/L (98-107); Estimated Glomerular Filt Rate 41.2 mL/min (>60); Globulin 3.8 g/dL (1.7-4.1); Glucose 96 mg/dL (80-110); HEMOLYSIS < 15 (0-50); Potassium 4.8 mmol/L (3.4-5.1); Sodium 140 mmol/L (137-145); Total Protein 8.6 g/dL (6.3-8.2)
[2019-09-12 10:56] LABS: Anisocytosis 2+; Neutrophils Absolute Manual 15860 /uL (3000-5900); Total Cells Counted 100
--- NOTE | 2019-09-14 11:18 | ONC.SCHED ---
Patient has a phone consult with [facility] early September
[2019-09-19 12:12] LABS: Mean Corpuscular HGB Conc 33.5 % (30-36); Mean Corpuscular Hemoglobin 31.4 PG (26-34); Mean Corpuscular Volume 93.8 fL (80-100); Platelet Count 84 X10^3/uL (150-400); Red Blood Cell Count 2.17 X10^6/uL (4.5-5.9); Red Cell Distribution Width 19.6 % (11.6-14.8); White Blood Cell Count 22.7 X10^3/uL (4.5-11.0)
[2019-09-19 12:19] LABS: Alanine Aminotransferase 28 IU/L (<50); Albumin 4.7 g/dL (3.5-5.0); Albumin Globulin Ratio 1.3 (1.0-2.8); Alkaline Phosphatase 58 U/L (38-126); Aspartate Aminotransferase 40 IU/L (17-59); BUN Creatinine Ratio 15.2 (6-22); Bilirubin Total 0.5 mg/dL (0.2-1.3); Blood Urea Nitrogen 25 mg/dL (9-20); Calcium 8.7 mg/dL (8.4-10.2); Carbon Dioxide 24 mmol/L (22-32); Chloride 107 mmol/L (98-107); Estimated Glomerular Filt Rate 41.2 mL/min (>60); Globulin 3.7 g/dL (1.7-4.1); Glucose 118 mg/dL (80-110); HEMOLYSIS < 15 (0-50); Potassium 4.3 mmol/L (3.4-5.1); Sodium 139 mmol/L (137-145); Total Protein 8.4 g/dL (6.3-8.2)
[2019-09-19 12:20] LABS: Add Manual Diff / Slide Review YES; Hematocrit 20.3 % (41-53); Hemoglobin 6.8 g/dL (13.5-17.5)
[2019-09-19 12:44] LABS: Anisocytosis 2+; Neutrophils Absolute Manual 10896 /uL (3000-5900); Total Cells Counted 100
--- NOTE | 2019-09-19 13:36 | P.PNONC_ITS ---
PN -Subjective Interval history: ID/CC: 74 year old with [id number](+) post-ET myelofibrosis Oncologic History: 74-year-old gentleman referred by Dr. Elkins for evaluation and management of anemia and thrombocytosis. On December 25, 2017 he was seen for swollen lymph nodes in his groin. Examination at that time reported small, bilateral inguinal lymph nodes ranging approximately 0.5 cm. His routine labs demonstrated WBC 5600, ANC 3472, hemoglobin 11.0, hematocrit 32.0, MCV 88.3, and platelet count 1,011,000. Sedimentation rate 13, CRP < 0.5, BUN 21, creatinine 1.10, calcium 9.2, glucose 88, B12 717, sodium 144, and potassium 5.3. He was also seen at that time by ortho for burning, neuropathic pain in his feet. He was then referred to surgeon Dr. Jones who on January 19, 2018 performed colonoscopy with findings of 4 reportedly benign polyps. Patient was then seen by oncologist Dr. Ortega on January 21, 2018. Lab results that visit demonstrated white cell 7.2, hemoglobin 10.6, hematocrit 30.7, platelets [id number], ANC 5.0, reticulocyte 1.2%, creatinine 1.0, LDH 747, iron 83, TIBC 308, saturation 27%, transferrin 230. JAK2 V617F mutation was positive. Patient subsequently underwent bone marrow aspiration February 23, 2018. The hematopathology demonstrated hypercellular marrow for age (65% cellular) with marked megakaryocytic hyperplasia, megakaryocytic atypia and mild myeloid hyperplasia without expanded blasts. There was mild marrow reticulin fibrosis by special stain (MF 1+ out of 3). Flow cytometry demonstrated no abnormal blast or myeloid cell population identified, and no abnormal B-cell or T-cell population identified. Cytogenic studies demonstrated the karyotype is normal 46 XY20. Treatment with hydroxyurea was initiated March 05, 2018. On 06/20/2019, patient developed fever, right upper chest pain especially when taking deep breath, shortness breath, and right leg weakness. He presented to [facility] and was diagnosed with subsegmental pulmonary emboli in the right lower lobe after CT angiogram. Ultrasound of the lower extremities showed occlusive thrombus involving the right common femoral and superficial femoral veins. Patient was started on heparin drip which was later transitioned to Lovenox injection. After he was discharged from the hospital, it was transitioned to Coumadin. While in the hospital, patient was found to have low hemoglobin level as low as 7.1 requiring blood transfusion. On admission, his white cell count 20.8. On discharge it has normalized to 8.6. Patient admitted that during of 2018, patient drove continuously for more than 12 hours in the car without taking a break. Patient underwent bone marrow aspiration and biopsy on 08/08/2019. 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 MDS fish panel was normal (no evidence for monosomy 5 or 7, deletion 5q, 7q, or 20q, or trisomy 8). Patient has a normal karyotype. Flow cytometry showed no evidence of definitively diagnostic immunophenotypic abnormality. On 09/05/2019, he started taking Jakafi 10 mg bid. Interval History: Patient has tolerated Jakafi very well. Patient said he overall has been doing well except the fatigue. Patient said that he is winded when he goes up one flight of stairs. No fever and no chills. No nausea no vomiting. He has already set up a telephone visit with [facility] bone marrow transplant on 09/29/2019. Summary of Treatments: 1. Hydroxyurea 03/05/2018-08/22/2019 2. Jakafi 10 mg bid 09/05/2019 -. - Patient Self-Reported Symptoms SR Constitution: Fatigue/Malaise SR ears, nose, mouth, throat issues: Ears ringing SR Cardiovascular issues: Dizzy/lightheaded SR Genitourinary issues: Change in stream SR Hematologic issues: Swollen lymph nodes - Additional ROS All systems PM: reviewed and no additional remarkable complaints except as stated (Those mentioned in HPI, Interval History and SR above.) Home Medications and Allergies Home Medications Medication Instructions Recorded Confirmed Type ruxolitinib [Jakafi] 10 mg PO BID #60 tab 08/22/19 Rx warfarin 5 mg tablet 5 mg PO DAILY #100 tab 08/30/19 08/30/19 Rx Allergies Allergy/AdvReac Type Severity Reaction Status Date / Time No Known Drug Allergies Allergy Verified 07/01/19 14:15 Exam Vital signs: 09/19/19 13:39 Last Vital Signs Temp 98.3 F 09/05/19 13:50 Pulse 73 09/05/19 13:50 Resp 16 09/05/19 13:50 BP 127/73 09/05/19 13:50 Pulse Ox 99 09/05/19 09:10 Narrative: ECOG 1 Gen: WDWN, NAD, pleasant and cooperative. HEENT: NCAT, EOMI, PERRLA, anicteric sclera. Neck: Supple, No palpable thyromegaly or lymphadenopathy. Respiratory: CTAB, no wheezes audible. No JVD Cardiovascular: RRR, S1 and S2 normal, no M/G/R. Abdomen: Soft, NTND, BS normal, no palpable organomegaly Extremities: No LE pitting edema. Lymphatic: no palpable lymph nodes in the neck, axillae Neurological: AOx3, CN II-XII grossly intact. No focal motor or sensory deficit. Psychiatric: Good affect; normal thought process; cooperative, no depression, no anxiety. Results - Labs Laboratory Last Values WBC 22.7 X10^3/uL (4.5-11.0) H 09/19/19 11:55 RBC 2.17 X10^6/uL (4.5-5.9) L 09/19/19 11:55 Hgb 6.8 g/dL (13.5-17.5) L* 09/19/19 11:55 Hct 20.3 % (41-53) L* 09/19/19 11:55 MCV 93.8 fL (80-100) 09/19/19 11:55 MCH 31.4 PG (26-34) 09/19/19 11:55 MCHC 33.5 % (30-36) 09/19/19 11:55 RDW 19.6 % (11.6-14.8) H 09/19/19 11:55 Plt Count 84 X10^3/uL (150-400) L 09/19/19 11:55 Neut % (Auto) Not Reportable 09/19/19 11:55 Lymph % (Auto) Not Reportable 09/19/19 11:55 [place] % (Auto) Not Reportable 09/19/19 11:55 Eos % (Auto) Not Reportable 09/19/19 11:55 Baso % (Auto) Not Reportable 09/19/19 11:55 Neut # (Auto) 2200 /uL (5819-3256) 12/17/18 09:09 Lymph # (Auto) Not Reportable 09/19/19 11:55 Eos # (Auto) 100 /uL (0-450) 12/17/18 09:09 [place] # (Auto) Not Reportable 09/19/19 11:55 Baso # (Auto) Not Reportable 09/19/19 11:55 Total Counted 100 09/19/19 11:55 Seg Neutrophils % 36.0 % (38-70) L 09/19/19 11:55 Band Neutrophils % 12.0 % (3-7) H 09/19/19 11:55 Lymphocytes % (Manual) 17.0 % (25-45) L 09/19/19 11:55 Atypical Lymphs % 4.0 % (-0) H 09/12/19 09:51 Monocytes % (Manual) 21.0 % (2-11) H 09/19/19 11:55 Eosinophils % (Manual) 4.0 % (2-4) 09/19/19 11:55 Metamyelocytes % 2.0 % (-0) H 09/19/19 11:55 Myelocytes % 6.0 % (-0) H 09/19/19 11:55 Promyelocytes % 3.0 % (-0) H 09/12/19 09:51 Blast Cells % 2.0 % (-0) H 09/19/19 11:55 Neutrophils # (Manual) 12337 /uL (0466-8586) H 09/19/19 11:55 Nucleated RBCs 1 #/Diff (-0) H 08/22/19 09:04 Hypersegmented Neuts 1+ 06/21/18 13:59 Platelet Estimate Increased on smear 04/26/18 14:55 Plt Morphology Comment Note: 04/26/18 14:55 Polychromasia 2+ H 08/22/19 09:04 Hypochromasia 1+ H 05/11/19 09:08 Poikilocytosis 1+ H 08/15/19 10:22 Basophilic Stippling 1+ H 08/22/19 09:04 Macrocytosis 2+ H 08/22/19 09:04 RBC Morphology See below 09/19/19 11:55 Tear Drop Cells 1+ H 08/08/19 12:54 Rouleaux 2+ H 09/05/19 07:43 Anisocytosis 2+ H 09/19/19 11:55 Schistocytes 1+ H 06/21/18 13:59 PT 19.5 SECONDS (10.1-12.7) H 09/12/19 09:50 INR 1.7 (0.9-1.3) H 09/12/19 09:50 Sodium 139 mmol/L (137-145) 09/19/19 11:55 Potassium 4.3 mmol/L (3.4-5.1) 09/19/19 11:55 Chloride 107 mmol/L (98-107) 09/19/19 11:55 Carbon Dioxide 24 mmol/L (22-32) 09/19/19 11:55 BUN 25 mg/dL (9-20) H 09/19/19 11:55 Creatinine 1.65 mg/dL (0.66-1.25) H 09/19/19 11:55 Estimated GFR 41.2 mL/min (>60) L 09/19/19 11:55 BUN/Creatinine Ratio 15.2 (6-22) 09/19/19 11:55 Glucose 118 mg/dL (80-110) H 09/19/19 11:55 Calcium 8.7 mg/dL (8.4-10.2) 09/19/19 11:55 Ferritin 550 ng/mL (18-464) H 08/15/19 10:22 Total Bilirubin 0.5 mg/dL (0.2-1.3) 09/19/19 11:55 AST 40 IU/L (17-59) 09/19/19 11:55 ALT 28 IU/L (<50) 09/19/19 11:55 Alkaline Phosphatase 58 U/L (38-126) 09/19/19 11:55 Lactate Dehydrogenase 544 U/L (313-618) 08/12/18 08:53 Total Protein 8.4 g/dL (6.3-8.2) H 09/19/19 11:55 Albumin 4.7 g/dL (3.5-5.0) 09/19/19 11:55 Globulin 3.7 g/dL (1.7-4.1) 09/19/19 11:55 Albumin/Globulin Ratio 1.3 (1.0-2.8) 09/19/19 11:55 Blood Type A Positive 09/05/19 09:55 Antibody Screen Negative 09/05/19 09:55 Crossmatch See Detail 09/05/19 09:55 Assessment and Plan (1) Myelofibrosis Overveiw: Essential thrombocytosis, 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 He was receiving hydroxyurea 500 mg every other day. Since March 2019, patient developed progressive worsening anemia. In addition patient also developed significant thrombocytopenia. No bleeding events. Bone marrow aspiration and biopsy on 08/08/2019 showed evidence of post ET myelofibrosis. No evidence of acute myeloid leukemia. He stopped hydroxyurea on 08/22/2019. He then started Jakafi on 09/05/2019. Assessment: Patient has tolerated the Jakafi well. No new issues, except fatigue and shortness of breath, which most likely is related to worsening anemia (see below 'Anemia'). Patient has already [facility] Plan: 1. Continue Jakafi 10 mg bid today 2. [facility] telephone visit on 09/29/2019 to discuss PBSCT 3. RTC MD in 2 weeks, repeat CBC, CMP (2) Anemia Overview: Macrocytic, likely related to underlying post-ET myelofibross Assessment: H/H 6.8/20.3. He is complaining fatigue and shortness of breath. Plan: Transfusion threshold: H/H 01/09. pRBC 2 units (3) Essential thrombocytosis See discussion in Myeolofibrosis above (4) Thrombocytopenia Overview: Thrombocytopenia, likely related to myelofibross Assessment: Clinically, patient denies any bleeding events. No petechia. Plan: Transfusion threshold: Platelet < 20 K or bleeding CBC weekly No Platelet transfusion indicated today (5) VTE (venous thromboembolism) Overview: Acute onset of right lower extremity occlusive deep venous thrombosis as well as pulmonary embolism involving the right lung on 06/20/2019. Patient admitted to long distance driving around [place] 2019 that could be the trigger factor. Assessment: Patient currently is taking Coumadin. No bleeding events. Plan : F/u with Dr. Elkins for INR monitoring and Coumadin dose adjustment.
[2019-09-19 13:59] VITALS: BP 120/73; PULSE 70; RESP 16; TEMP 36.7
[2019-09-19 14:15] VITALS: BP 116/68; PULSE 69; RESP 18; TEMP 36.8
[2019-09-19 16:57] VITALS: BP 124/72; PULSE 62; RESP 18; TEMP 36.3
[2019-09-20 09:34] VITALS: BP 123/73; PULSE 67; RESP 16; TEMP 36.6; O2SAT 99
[2019-09-20 09:40] VITALS: BP 123/73; PULSE 73; RESP 16; TEMP 36.7
[2019-09-20 09:56] VITALS: BP 116/73; PULSE 67; RESP 15; TEMP 36.7
[2019-09-20 12:01] VITALS: BP 117/71; PULSE 62; RESP 15; TEMP 36.7
--- NOTE | 2019-09-22 14:30 | PC.NURSE ---
Sent bone marrow biopsy results to [facility] as requested.
[2019-09-26 10:41] LABS: Hematocrit 25.6 % (41-53); Hemoglobin 8.6 g/dL (13.5-17.5); Mean Corpuscular HGB Conc 33.8 % (30-36); Mean Corpuscular Hemoglobin 31.1 PG (26-34); Platelet Count 62 X10^3/uL (150-400); Red Blood Cell Count 2.78 X10^6/uL (4.5-5.9); Red Cell Distribution Width 17.5 % (11.6-14.8); White Blood Cell Count 19.7 X10^3/uL (4.5-11.0)
[2019-09-26 10:45] LABS: Add Manual Diff / Slide Review YES
[2019-09-26 11:22] LABS: Neutrophils Absolute Manual 10244 /uL (3000-5900); Total Cells Counted 100
[2019-09-26 11:23] LABS: Anisocytosis 1+; Macrocytosis 1+
[2019-10-03 09:18] LABS: Hematocrit 22.8 % (41-53); Hemoglobin 7.8 g/dL (13.5-17.5); Mean Corpuscular Hemoglobin 31.1 PG (26-34); Mean Corpuscular Volume 91.3 fL (80-100); Platelet Count 37 X10^3/uL (150-400); Red Cell Distribution Width 17.1 % (11.6-14.8); White Blood Cell Count 18.7 X10^3/uL (4.5-11.0)
[2019-10-03 09:19] LABS: Add Manual Diff / Slide Review YES
--- NOTE | 2019-10-03 09:21 | P.PNONC_ITS ---
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 Elkins for evaluation and management of anemia and thrombocytosis. On December 25, 2017 he was seen for swollen lymph nodes in his groin. Examination at that time reported small, bilateral inguinal lymph nodes ranging approximately 0.5 cm. His routine labs demonstrated WBC 5600, ANC 3472, hemoglobin 11.0, hematocrit 32.0, MCV 88.3, and platelet count 1,011,000. Sedimentation rate 13, CRP < 0.5, BUN 21, creatinine 1.10, calcium 9.2, glucose 88, B12 717, sodium 144, and potassium 5.3. He was also seen at that time by ortho for burning, neuropathic pain in his feet. He was then referred to surgeon Dr. Jones who on January 19, 2018 performed colonoscopy with findings of 4 reportedly benign polyps. Patient was then seen by oncologist Dr. Ortega on January 21, 2018. Lab results that visit demonstrated white cell 7.2, hemoglobin 10.6, hematocrit 30.7, platelets 132112, ANC 5.0, reticulocyte 1.2%, creatinine 1.0, LDH 747, iron 83, TIBC 308, saturation 27%, transferrin 230. JAK2 V617F mutation was positive. Patient subsequently underwent bone marrow aspiration February 23, 2018. The hematopathology demonstrated hypercellular marrow for age (65% cellular) with marked megakaryocytic hyperplasia, megakaryocytic atypia and mild myeloid hyperplasia without expanded blasts. There was mild marrow reticulin fibrosis by special stain (MF 1+ out of 3). Flow cytometry demonstrated no abnormal blast or myeloid cell population identified, and no abnormal B-cell or T-cell population identified. Cytogenic studies demonstrated the karyotype is normal 46 XY20. Treatment with hydroxyurea was initiated March 05, 2018. On 06/20/2019, patient developed fever, right upper chest pain especially when taking deep breath, shortness breath, and right leg weakness. He presented to [facility] Emergency Room and was diagnosed with subsegmental pulmonary emboli in the right lower lobe after CT angiogram. Ultrasound of the lower extremities showed occlusive thrombus involving the right common femoral and superficial femoral veins. Patient was started on heparin drip which was later transitioned to Lovenox injection. After he was discharged from the hospital, it was transitioned to Coumadin. While in the hospital, patient was found to have low hemoglobin level as low as 7.1 requiring blood transfusion. On admission, his white cell count 20.8. On discharge it has normalized to 8.6. Patient admitted that during of 2018, patient drove continuously for more than 12 hours in the car without taking a break. Patient underwent bone marrow aspiration and biopsy on 08/08/2019. 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 MDS fish panel was normal (no evidence for monosomy 5 or 7, deletion 5q, 7q, or 20q, or trisomy 8). Patient has a normal karyotype. Flow cytometry showed no evidence of definitively diagnostic immunophenotypic abnormality. On 09/05/2019, he started taking Jakafi 10 mg bid. Interval History: Since his previous visit, patient had a telephone visit with Dr. Andres Baltazar at [facility]. We have tried to get the records, but was told that the dictation is still pending. According to patient, Eddie was considered a good candidate for allogeneic peripheral blood stem cell transplant. He was told that it was about 60% effective. Without transplant, the likelihood of continued response with current non transplant options probably is around 2-3 years. According to patient, several experimental medications were also discussed with the patient. Patient clinically has been doing well. Patient said that he feels great. He does not think that his hemoglobin level is low today. He denies any bleeding events. He denies any fever or chills. Currently he is taking KING of the 10 mg twice daily and warfarin. several experimental medications were discussed with patient. Summary of Treatments: 1. Hydroxyurea 03/05/2018-08/22/2019 2. Jakafi 10 mg bid 09/05/2019 -. - Patient Self-Reported Symptoms SR Constitution: Fatigue/Malaise SR ears, nose, mouth, throat issues: Ears ringing SR Cardiovascular issues: Dizzy/lightheaded SR Genitourinary issues: Change in stream SR Hematologic issues: Swollen lymph nodes - Additional ROS All systems PM: reviewed and no additional remarkable complaints except as stated Home Medications and Allergies Home Medications Medication Instructions Recorded Confirmed Type ruxolitinib [Jakafi] 10 mg PO BID #60 tab 08/22/19 Rx warfarin 5 mg tablet 5 mg PO DAILY #100 tab 08/30/19 08/30/19 Rx Allergies Allergy/AdvReac Type Severity Reaction Status Date / Time No Known Drug Allergies Allergy Verified 07/01/19 14:15 Exam Vital signs: 10/03/19 10:10 Last Vital Signs Temp 96.0 F L 10/03/19 09:54 Pulse 66 10/03/19 09:54 Resp 16 10/03/19 09:54 BP 118/73 10/03/19 09:54 Pulse Ox 100 10/03/19 09:54 Narrative: ECOG 1 Gen: WDWN, NAD, pleasant and cooperative. HEENT: NCAT, EOMI, PERRLA, anicteric sclera. Neck: Supple, No palpable thyromegaly or lymphadenopathy. Respiratory: CTAB, no wheezes audible. No JVD Cardiovascular: RRR, S1 and S2 normal, no M/G/R. Abdomen: Soft, NTND, BS normal, no palpable organomegaly Extremities: No LE pitting edema. Lymphatic: no palpable lymph nodes in the neck, axillae Neurological: AOx3, CN II-XII grossly intact. No focal motor or sensory deficit. Psychiatric: Good affect; normal thought process; cooperative, no depression, no anxiety. Results - Labs Laboratory Last Values WBC 18.7 X10^3/uL (4.5-11.0) H 10/03/19 09:00 RBC 2.50 X10^6/uL (4.5-5.9) L 10/03/19 09:00 Hgb 7.8 g/dL (13.5-17.5) L 10/03/19 09:00 Hct 22.8 % (41-53) L 10/03/19 09:00 MCV 91.3 fL (80-100) 10/03/19 09:00 MCH 31.1 PG (26-34) 10/03/19 09:00 MCHC 34.0 % (30-36) 10/03/19 09:00 RDW 17.1 % (11.6-14.8) H 10/03/19 09:00 Plt Count 37 X10^3/uL (150-400) L 10/03/19 09:00 Neut % (Auto) Not Reportable 10/03/19 09:00 Lymph % (Auto) Not Reportable 10/03/19 09:00 [place] % (Auto) Not Reportable 10/03/19 09:00 Eos % (Auto) Not Reportable 10/03/19 09:00 Baso % (Auto) Not Reportable 10/03/19 09:00 Neut # (Auto) 2200 /uL (0263-1445) 12/17/18 09:09 Lymph # (Auto) Not Reportable 10/03/19 09:00 Eos # (Auto) 100 /uL (0-450) 12/17/18 09:09 [place] # (Auto) Not Reportable 10/03/19 09:00 Baso # (Auto) Not Reportable 10/03/19 09:00 Total Counted 100 09/26/19 10:25 Seg Neutrophils % 44.0 % (38-70) 09/26/19 10:25 Band Neutrophils % 8.0 % (3-7) H 09/26/19 10:25 Lymphocytes % (Manual) 19.0 % (25-45) L 09/26/19 10:25 Atypical Lymphs % 4.0 % (-0) H 09/12/19 09:51 Monocytes % (Manual) 16.0 % (2-11) H 09/26/19 10:25 Eosinophils % (Manual) 4.0 % (2-4) 09/19/19 11:55 Metamyelocytes % 7.0 % (-0) H 09/26/19 10:25 Myelocytes % 5.0 % (-0) H 09/26/19 10:25 Promyelocytes % 1.0 % (-0) H 09/26/19 10:25 Blast Cells % 2.0 % (-0) H 09/19/19 11:55 Neutrophils # (Manual) 74793 /uL (1444-6480) H 09/26/19 10:25 Nucleated RBCs 1 #/Diff (-0) H 08/22/19 09:04 Hypersegmented Neuts 1+ 06/21/18 13:59 Platelet Estimate Increased on smear 04/26/18 14:55 Plt Morphology Comment Note: 04/26/18 14:55 Polychromasia 2+ H 08/22/19 09:04 Hypochromasia 1+ H 05/11/19 09:08 Poikilocytosis 1+ H 08/15/19 10:22 Basophilic Stippling 1+ H 08/22/19 09:04 RBC Morphology See below 09/26/19 10:25 Tear Drop Cells 1+ H 08/08/19 12:54 Rouleaux 2+ H 09/05/19 07:43 Anisocytosis 1+ H 09/26/19 10:25 Macrocytosis 1+ H 09/26/19 10:25 Schistocytes 1+ H 06/21/18 13:59 PT 19.5 SECONDS (10.1-12.7) H 09/12/19 09:50 INR 1.7 (0.9-1.3) H 09/12/19 09:50 Sodium 139 mmol/L (137-145) 09/19/19 11:55 Potassium 4.3 mmol/L (3.4-5.1) 09/19/19 11:55 Chloride 107 mmol/L (98-107) 09/19/19 11:55 Carbon Dioxide 24 mmol/L (22-32) 09/19/19 11:55 BUN 25 mg/dL (9-20) H 09/19/19 11:55 Creatinine 1.65 mg/dL (0.66-1.25) H 09/19/19 11:55 Estimated GFR 41.2 mL/min (>60) L 09/19/19 11:55 BUN/Creatinine Ratio 15.2 (6-22) 09/19/19 11:55 Glucose 118 mg/dL (80-110) H 09/19/19 11:55 Calcium 8.7 mg/dL (8.4-10.2) 09/19/19 11:55 Ferritin 550 ng/mL (18-464) H 08/15/19 10:22 Total Bilirubin 0.5 mg/dL (0.2-1.3) 09/19/19 11:55 AST 40 IU/L (17-59) 09/19/19 11:55 ALT 28 IU/L (<50) 09/19/19 11:55 Alkaline Phosphatase 58 U/L (38-126) 09/19/19 11:55 Lactate Dehydrogenase 544 U/L (313-618) 08/12/18 08:53 Total Protein 8.4 g/dL (6.3-8.2) H 09/19/19 11:55 Albumin 4.7 g/dL (3.5-5.0) 09/19/19 11:55 Globulin 3.7 g/dL (1.7-4.1) 09/19/19 11:55 Albumin/Globulin Ratio 1.3 (1.0-2.8) 09/19/19 11:55 Blood Type A Positive 09/19/19 11:55 Antibody Screen Negative 09/19/19 11:55 Crossmatch See Detail 09/19/19 11:55 Assessment and Plan (1) Myelofibrosis Overveiw: Essential thrombocytosis, 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 He was receiving hydroxyurea 500 mg every other day. Since March 2019, patient developed progressive worsening anemia. In addition patient also developed significant thrombocytopenia. No bleeding events. Bone marrow aspiration and biopsy on 08/08/2019 showed evidence of post ET myelofibrosis. No evidence of acute myeloid leukemia. He stopped hydroxyurea on 08/22/2019. He then started Jakafi on 09/05/2019. Assessment: I reviewed the lab tests from today with the patient. The white cell count has decreased slightly to 18. However the platelet counts have dropped significantly to 37. The hemoglobin level was 7.8. I explained to the patient that the platelet counts has dropped below 50. Based on label, I will interrupt the KING of he for now. Will repeat the labs in 1 week and decide about re-starting at lower dosage. In addition I will try to get the medical records from Dr. Andres Baltazar at [facility] about their opinion regarding peripheral blood stem cell transplant. Plan: 1. Hold Jakafi 10 mg bid for now 2. Please request telephone visit records of 09/29/2019 3. RTC MD in 1 week, repeat CBC (2) Anemia Overview: Macrocytic, likely related to underlying post-ET myelofibross Assessment: H/H 7.8/22.8. Clinically, he said he feels well. I do not think blood transfusion is indicated. Plan: Transfusion threshold: H/H 01/09. No blood transfusion. (3) Essential thrombocytosis See discussion in Myeolofibrosis above (4) Thrombocytopenia Overview: Thrombocytopenia, likely related to myelofibross Assessment: Clinically, patient denies any bleeding events. No petechia. Today the platelet counts were 37. Plan: Transfusion threshold: Platelet < 20 K or bleeding Continue CBC weekly No Platelet transfusion indicated today (5) VTE (venous thromboembolism) Overview: Acute onset of right lower extremity occlusive deep venous thrombosis as well as pulmonary embolism involving the right lung on 06/20/2019. Patient admitted to long distance driving around 2018 that could be the trigger factor. Assessment: Patient currently is taking Coumadin. No bleeding events. However, given that platelet counts have dropped to below 50, I recommend that we hold Coumadin for now until platelet counts return back to above 50. Plan : Hold Coumadin for now due to platelet count < 50K Continue follow up with Dr. Elkins for INR monitoring and Coumadin dose adjustment.
[2019-10-03 09:26] LABS: INR 1.9 (0.9-1.3); Prothrombin Time 22.2 SECONDS (10.1-12.7)
[2019-10-03 09:32] LABS: Alanine Aminotransferase 28 IU/L (<50); Albumin 4.4 g/dL (3.5-5.0); Albumin Globulin Ratio 1.2 (1.0-2.8); Alkaline Phosphatase 55 U/L (38-126); Aspartate Aminotransferase 42 IU/L (17-59); BUN Creatinine Ratio 16.8 (6-22); Bilirubin Total 0.4 mg/dL (0.2-1.3); Blood Urea Nitrogen 24 mg/dL (9-20); Calcium 8.5 mg/dL (8.4-10.2); Carbon Dioxide 24 mmol/L (22-32); Chloride 106 mmol/L (98-107); Estimated Glomerular Filt Rate 48.6 mL/min (>60); Globulin 3.8 g/dL (1.7-4.1); Glucose 88 mg/dL (80-110); HEMOLYSIS < 15 (0-50); Potassium 4.4 mmol/L (3.4-5.1); Sodium 139 mmol/L (137-145); Total Protein 8.2 g/dL (6.3-8.2)
[2019-10-03 09:35] LABS: Anisocytosis 2+; Neutrophils Absolute Manual 11220 /uL (3000-5900); Platelet Estimate Decreased on smear; Total Cells Counted 100
[2019-10-03 09:54] VITALS: BP 118/73; PULSE 66; RESP 16; TEMP 35.6; O2SAT 100
--- NOTE | 2019-10-11 13:03 | P.PNONC_ITS ---
PN -Subjective Interval history: ID/CC: 74 year old with [id number](+) post-ET myelofibrosis Oncologic History: 74-year-old gentleman referred by Dr. Elkins for evaluation and management of anemia and thrombocytosis. On December 25, 2017 he was seen for swollen lymph nodes in his groin. Examination at that time reported small, bilateral inguinal lymph nodes ranging approximately 0.5 cm. His routine labs demonstrated WBC 5600, ANC 3472, hemoglobin 11.0, hematocrit 32.0, MCV 88.3, and platelet count 1,011,000. Sedimentation rate 13, CRP < 0.5, BUN 21, creatinine 1.10, calcium 9.2, glucose 88, B12 717, sodium 144, and potassium 5.3. He was also seen at that time by ortho for burning, neuropathic pain in his feet. He was then referred to surgeon Dr. Jones who on January 19, 2018 performed colonoscopy with findings of 4 reportedly benign polyps. Patient was then seen by oncologist Dr. Ortega on January 21, 2018. Lab results that visit demonstrated white cell 7.2, hemoglobin 10.6, hematocrit 30.7, platelets 879312, ANC 5.0, reticulocyte 1.2%, creatinine 1.0, LDH 747, iron 83, TIBC 308, saturation 27%, transferrin 230. JAK2 V617F mutation was positive. Patient subsequently underwent bone marrow aspiration February 23, 2018. The hematopathology demonstrated hypercellular marrow for age (65% cellular) with marked megakaryocytic hyperplasia, megakaryocytic atypia and mild myeloid hyperplasia without expanded blasts. There was mild marrow reticulin fibrosis by special stain (MF 1+ out of 3). Flow cytometry demonstrated no abnormal blast or myeloid cell population identified, and no abnormal B-cell or T-cell population identified. Cytogenic studies demonstrated the karyotype is normal 46 XY20. Treatment with hydroxyurea was initiated March 05, 2018. On 06/20/2019, patient developed fever, right upper chest pain especially when taking deep breath, shortness breath, and right leg weakness. He presented to [facility] Emergency Room and was diagnosed with subsegmental pulmonary emboli in the right lower lobe after CT angiogram. Ultrasound of the lower extremities showed occlusive thrombus involving the right common femoral and superficial femoral veins. Patient was started on heparin drip which was later transitioned to Lovenox injection. After he was discharged from the hospital, it was transitioned to Coumadin. While in the hospital, patient was found to have low hemoglobin level as low as 7.1 requiring blood transfusion. On admission, his white cell count 20.8. On discharge it has normalized to 8.6. Patient admitted that during of 2018, patient drove continuously for more than 12 hours in the car without taking a break. Patient underwent bone marrow aspiration and biopsy on 08/08/2019. 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 MDS fish panel was normal (no evidence for monosomy 5 or 7, deletion 5q, 7q, or 20q, or trisomy 8). Patient has a normal karyotype. Flow cytometry showed no evidence of definitively diagnostic immunophenotypic abnormality. On 09/05/2019, he started taking Jakafi 10 mg bid. Interval History: Since his previous visit, due to declining thrombocytopenia, we have temporarily hold Jakafi. Patient presents here today for scheduled follow-up visit. Patient is complaining mild fatigue. No bleeding events. He denies any fever or chills. Denies shortness of breath or chest pain. Denies abdominal pain diarrhea or constipation. Summary of Treatments: 1. Hydroxyurea 03/05/2018-08/22/2019 2. Jakafi 10 mg bid 09/05/2019 -. - Patient Self-Reported Symptoms SR Constitution: Fatigue/Malaise SR ears, nose, mouth, throat issues: Ears ringing SR Cardiovascular issues: Dizzy/lightheaded SR Genitourinary issues: Change in stream SR Hematologic issues: Swollen lymph nodes - Additional ROS All systems PM: reviewed and no additional remarkable complaints except as stated (those mentioned in HPI, Interval History and SR above.) Home Medications and Allergies Home Medications Medication Instructions Recorded Confirmed Type ruxolitinib [Jakafi] 10 mg PO BID #60 tab 08/22/19 10/11/19 Rx warfarin 5 mg tablet 5 mg PO DAILY #100 tab 08/30/19 10/11/19 Rx Allergies Allergy/AdvReac Type Severity Reaction Status Date / Time No Known Drug Allergies Allergy Verified 07/01/19 14:15 Exam Vital signs: 10/11/19 14:19 Last Vital Signs Temp 96.0 F L 10/03/19 09:54 Pulse 78 10/11/19 13:35 Resp 16 10/11/19 13:35 BP 134/75 10/11/19 13:35 Pulse Ox 98 10/11/19 13:35 Narrative: ECOG 1 Gen: WDWN, NAD, pleasant and cooperative. HEENT: NCAT, EOMI, PERRLA, anicteric sclera. Neck: Supple, No palpable thyromegaly or lymphadenopathy. Respiratory: CTAB, no wheezes audible. No JVD Cardiovascular: RRR, S1 and S2 normal, no M/G/R. Abdomen: Soft, NTND, BS normal, no palpable organomegaly Extremities: No LE pitting edema. Lymphatic: no palpable lymph nodes in the neck, axillae Neurological: AOx3, CN II-XII grossly intact. No focal motor or sensory deficit. Psychiatric: Good affect; normal thought process; cooperative, no depression, no anxiety. Results - Labs Laboratory Last Values WBC 27.2 X10^3/uL (4.5-11.0) H 10/11/19 13:00 RBC 2.40 X10^6/uL (4.5-5.9) L 10/11/19 13:00 Hgb 7.5 g/dL (13.5-17.5) L 10/11/19 13:00 Hct 21.9 % (41-53) L 10/11/19 13:00 MCV 91.4 fL (80-100) 10/11/19 13:00 MCH 31.0 PG (26-34) 10/11/19 13:00 MCHC 34.0 % (30-36) 10/11/19 13:00 RDW 16.8 % (11.6-14.8) H 10/11/19 13:00 Plt Count 32 X10^3/uL (150-400) L* 10/11/19 13:00 Neut % (Auto) Not Reportable 10/11/19 13:00 Lymph % (Auto) Not Reportable 10/11/19 13:00 [place] % (Auto) Not Reportable 10/11/19 13:00 Eos % (Auto) Not Reportable 10/11/19 13:00 Baso % (Auto) Not Reportable 10/11/19 13:00 Neut # (Auto) 2200 /uL (6330-8855) 12/17/18 09:09 Lymph # (Auto) Not Reportable 10/11/19 13:00 Eos # (Auto) 100 /uL (0-450) 12/17/18 09:09 [place] # (Auto) Not Reportable 10/11/19 13:00 Baso # (Auto) Not Reportable 10/11/19 13:00 Total Counted 100 10/11/19 13:00 Seg Neutrophils % 28.0 % (38-70) L 10/11/19 13:00 Band Neutrophils % 21.0 % (3-7) H 10/11/19 13:00 Lymphocytes % (Manual) 7.0 % (25-45) L 10/11/19 13:00 Atypical Lymphs % 1.0 % (-0) H 10/11/19 13:00 Monocytes % (Manual) 18.0 % (2-11) H 10/11/19 13:00 Eosinophils % (Manual) 4.0 % (2-4) 09/19/19 11:55 Metamyelocytes % 11.0 % (-0) H 10/11/19 13:00 Myelocytes % 11.0 % (-0) H 10/11/19 13:00 Promyelocytes % 3.0 % (-0) H 10/11/19 13:00 Blast Cells % 2.0 % (-0) H 10/03/19 09:00 Neutrophils # (Manual) 59687 /uL (0280-8966) H 10/11/19 13:00 Hypersegmented Neuts 1+ 06/21/18 13:59 Nucleated RBCs 3 #/Diff (-0) H 10/11/19 13:00 Plt Morphology Comment Note: 04/26/18 14:55 Platelet Estimate Decreased on smear 10/11/19 13:00 Hypochromasia 1+ H 05/11/19 09:08 Poikilocytosis 1+ H 08/15/19 10:22 Basophilic Stippling 1+ H 08/22/19 09:04 RBC Morphology See below 10/11/19 13:00 Tear Drop Cells 1+ H 08/08/19 12:54 Polychromasia 1+ H 10/11/19 13:00 Rouleaux 2+ H 09/05/19 07:43 Anisocytosis 1+ H 10/11/19 13:00 Macrocytosis 1+ H 09/26/19 10:25 Schistocytes 1+ H 06/21/18 13:59 PT 22.2 SECONDS (10.1-12.7) H 10/03/19 09:00 INR 1.9 (0.9-1.3) H 10/03/19 09:00 Sodium 139 mmol/L (137-145) 10/03/19 09:00 Potassium 4.4 mmol/L (3.4-5.1) 10/03/19 09:00 Chloride 106 mmol/L (98-107) 10/03/19 09:00 Carbon Dioxide 24 mmol/L (22-32) 10/03/19 09:00 BUN 24 mg/dL (9-20) H 10/03/19 09:00 Creatinine 1.43 mg/dL (0.66-1.25) H 10/03/19 09:00 Estimated GFR 48.6 mL/min (>60) L 10/03/19 09:00 BUN/Creatinine Ratio 16.8 (6-22) 10/03/19 09:00 Glucose 88 mg/dL (80-110) 10/03/19 09:00 Calcium 8.5 mg/dL (8.4-10.2) 10/03/19 09:00 Ferritin 550 ng/mL (18-464) H 08/15/19 10:22 Total Bilirubin 0.4 mg/dL (0.2-1.3) 10/03/19 09:00 AST 42 IU/L (17-59) 10/03/19 09:00 ALT 28 IU/L (<50) 10/03/19 09:00 Alkaline Phosphatase 55 U/L (38-126) 10/03/19 09:00 Lactate Dehydrogenase 544 U/L (313-618) 08/12/18 08:53 Total Protein 8.2 g/dL (6.3-8.2) 10/03/19 09:00 Albumin 4.4 g/dL (3.5-5.0) 10/03/19 09:00 Globulin 3.8 g/dL (1.7-4.1) 10/03/19 09:00 Albumin/Globulin Ratio 1.2 (1.0-2.8) 10/03/19 09:00 Blood Type A Positive 09/19/19 11:55 Antibody Screen Negative 09/19/19 11:55 Crossmatch See Detail 09/19/19 11:55 Assessment and Plan (1) Myelofibrosis Overveiw: Essential thrombocytosis, 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 He was receiving hydroxyurea 500 mg every other day. Since March 2019, patient developed progressive worsening anemia. In addition patient also developed significant thrombocytopenia. No bleeding events. Bone marrow aspiration and biopsy on 08/08/2019 showed evidence of post ET myelofibrosis. No evidence of acute myeloid leukemia. He stopped hydroxyurea on 08/22/2019. He then started Jakafi on 09/05/2019. On 10/03/2019, we stopped Jakafi due to progressive thrombocytopenia. Assessment: Today I reviewed the lab tests with the patient. Patient's white blood cell count has increased 27.2. Hemoglobin level dropped to 7.5 and platelet counts continue to decrease to 32. Talked with patient that I would recommend continue to hold the Jakafi. During his previous wheeze visit with Dr. Adnres Baltazar at [facility] had discussed clinically trial and bone marrow transplant. Patient said that he has sent blood samples today to [facility] and pending the response. Plan: 1. Continue to hold Jakafi 10 mg bid for now 2. RTC MD in 1 week, repeat CBC (2) Anemia Overview: Macrocytic, likely related to underlying post-ET myelofibross Assessment: H/H 7.8/22.8. Clinically, he said he feels well. I do not think blood transfusion is indicated. Plan: Transfusion threshold: H/H 7/. No blood transfusion. (3) Essential thrombocytosis See discussion in Myeolofibrosis above (4) Thrombocytopenia Overview: Thrombocytopenia, likely related to myelofibross Assessment: Clinically, patient denies any bleeding events. No petechia. Today the platelet counts were 37. Plan: Transfusion threshold: Platelet < 20 K or bleeding Continue CBC weekly No Platelet transfusion indicated today (5) VTE (venous thromboembolism) Overview: Acute onset of right lower extremity occlusive deep venous thrombosis as well as pulmonary embolism involving the right lung on 06/20/2019. Patient admitted to long distance driving around 2018 that could be the trigger factor. Assessment: Patient currently is taking Coumadin. No bleeding events. However, given that platelet counts have dropped to below 50, I recommend that we hold Coumadin for now until platelet counts return back to above 50. Plan : Hold Coumadin for now due to platelet count < 50K Continue follow up with Dr. Elkins for INR monitoring and Coumadin dose adjustment.
[2019-10-11 13:35] VITALS: BP 134/75; PULSE 78; RESP 16; O2SAT 98
[2019-10-11 13:41] LABS: Mean Corpuscular Volume 91.4 fL (80-100); Red Cell Distribution Width 16.8 % (11.6-14.8); White Blood Cell Count 27.2 X10^3/uL (4.5-11.0)
[2019-10-11 13:42] LABS: Add Manual Diff / Slide Review YES; Hematocrit 21.9 % (41-53); Hemoglobin 7.5 g/dL (13.5-17.5)
[2019-10-11 13:43] LABS: Platelet Count 32 X10^3/uL (150-400)
[2019-10-11 14:06] LABS: Neutrophils Absolute Manual 13328 /uL (3000-5900); Nucleated Red Blood Cells 3 #/Diff; Total Cells Counted 100
[2019-10-11 14:07] LABS: Anisocytosis 1+; Platelet Estimate Decreased on smear; Polychromasia 1+
--- NOTE | 2019-10-11 15:13 | PC.NURSE ---
Dr. Barth aware of critical platelet result.
[2019-10-17] VITALS (7 sets, daily range): BP systolic 116–128; BP diastolic 62–73; PULSE 74–83; RESP 16–18; TEMP 36.7–37.3; O2SAT 100
--- NOTE | 2019-10-17 08:24 | ONC.PN ---
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 Elkins for evaluation and management of anemia and thrombocytosis. On December 25, 2017 he was seen for swollen lymph nodes in his groin. Examination at that time reported small, bilateral inguinal lymph nodes ranging approximately 0.5 cm. His routine labs demonstrated WBC 5600, ANC 3472, hemoglobin 11.0, hematocrit 32.0, MCV 88.3, and platelet count 1,011,000. Sedimentation rate 13, CRP < 0.5, BUN 21, creatinine 1.10, calcium 9.2, glucose 88, B12 717, sodium 144, and potassium 5.3. He was also seen at that time by ortho for burning, neuropathic pain in his feet. He was then referred to surgeon Dr. Jones who on January 19, 2018 performed colonoscopy with findings of 4 reportedly benign polyps. Patient was then seen by oncologist Dr. Ortega on January 21, 2018. Lab results that visit demonstrated white cell 7.2, hemoglobin 10.6, hematocrit 30.7, platelets [id number], ANC 5.0, reticulocyte 1.2%, creatinine 1.0, LDH 747, iron 83, TIBC 308, saturation 27%, transferrin 230. JAK2 V617F mutation was positive. Patient subsequently underwent bone marrow aspiration February 23, 2018. The hematopathology demonstrated hypercellular marrow for age (65% cellular) with marked megakaryocytic hyperplasia, megakaryocytic atypia and mild myeloid hyperplasia without expanded blasts. There was mild marrow reticulin fibrosis by special stain (MF 1+ out of 3). Flow cytometry demonstrated no abnormal blast or myeloid cell population identified, and no abnormal B-cell or T-cell population identified. Cytogenic studies demonstrated the karyotype is normal 46 XY20. Treatment with hydroxyurea was initiated March 05, 2018. On 06/20/2019, patient developed fever, right upper chest pain especially when taking deep breath, shortness breath, and right leg weakness. He presented to [facility] Emergency Room and was diagnosed with sub-segmental pulmonary emboli in the right lower lobe after CT angiogram. Ultrasound of the lower extremities showed occlusive thrombus involving the right common femoral and superficial femoral veins. Patient was started on heparin drip which was later transitioned to Lovenox injection. After he was discharged from the hospital, it was transitioned to Coumadin. While in the hospital, patient was found to have low hemoglobin level as low as 7.1 requiring blood transfusion. On admission, his white cell count 20.8. On discharge it has normalized to 8.6. Patient admitted that during of 2018, patient drove continuously for more than 12 hours in the car without taking a break. Patient underwent bone marrow aspiration and biopsy on 08/08/2019. 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 MDS FISH panel was normal (no evidence for monosomy 5 or 7, deletion 5q, 7q, or 20q, or trisomy 8). Patient has a normal karyotype. Flow cytometry showed no evidence of definitively diagnostic immunophenotypic abnormality. On 08/22/2019, hydrea was stopped. On 09/05/2019, he started taking Jakafi 10 mg bid. Due to rapidly progressive thrombocytopenia, we have held the Jakafi since 10/03/2019. Interval History: Since we held Jakafi on 10/03/2019, patient's platelet counts continue to decrease. Since his previous visit with me about a week ago, patient is reporting significant shortness of breath. He said he was having problems walking from the car to here. He is denies any bleeding events. He denies any fever or chills. Has some mild cough but does not have any fever or chills. Summary of Treatments: 1. Hydroxyurea 03/05/2018-08/22/2019 2. Jakafi 10 mg bid 09/05/2019 -. - Patient Self-Reported Symptoms SR Constitution: Fatigue/Malaise SR ears, nose, mouth, throat issues: Ears ringing SR Cardiovascular issues: Dizzy/lightheaded SR Genitourinary issues: Change in stream SR Hematologic issues: Swollen lymph nodes - Additional ROS All systems PM: reviewed and no additional remarkable complaints except as stated (those mentioned in HPI, Interval History and SR above.) Home Medications and Allergies Home Medications Medication Instructions Recorded Confirmed Type ruxolitinib [Jakafi] 10 mg PO BID #60 tab 08/22/19 10/11/19 Rx warfarin 5 mg tablet 5 mg PO DAILY #100 tab 08/30/19 10/11/19 Rx Allergies Allergy/AdvReac Type Severity Reaction Status Date / Time No Known Drug Allergies Allergy Verified 07/01/19 14:15 Exam Vital signs: 10/17/19 09:14 Last Vital Signs Temp 98.1 F 10/17/19 09:07 Pulse 78 10/17/19 09:07 Resp 16 10/17/19 09:07 BP 128/73 10/17/19 09:07 Pulse Ox 100 10/17/19 09:07 Narrative: ECOG 1 Gen: WDWN, NAD, pleasant and cooperative. HEENT: NCAT, EOMI, PERRLA, anicteric sclera. Respiratory: No use of accessory breathing muscle. Extremities: No LE pitting edema. Neurological: AOx3, CN II-XII grossly intact. No focal motor or sensory deficit. Psychiatric: Good affect; normal thought process; cooperative, no depression, no anxiety. Results - Labs Laboratory Last Values WBC 40.7 X10^3/uL (4.5-11.0) H* 10/17/19 08:20 RBC 2.02 X10^6/uL (4.5-5.9) L 10/17/19 08:20 Hgb 6.1 g/dL (13.5-17.5) L* 10/17/19 08:20 Hct 18.5 % (41-53) L* 10/17/19 08:20 MCV 91.8 fL (80-100) 10/17/19 08:20 MCH 30.4 PG (26-34) 10/17/19 08:20 MCHC 33.1 % (30-36) 10/17/19 08:20 RDW 17.1 % (11.6-14.8) H 10/17/19 08:20 Plt Count 34 X10^3/uL (150-400) L* 10/17/19 08:20 Neut % (Auto) Not Reportable 10/17/19 08:20 Lymph % (Auto) Not Reportable 10/17/19 08:20 Graham % (Auto) Not Reportable 10/17/19 08:20 Eos % (Auto) Not Reportable 10/17/19 08:20 Baso % (Auto) Not Reportable 10/17/19 08:20 Neut # (Auto) 2200 /uL (9164-7300) 12/17/18 09:09 Lymph # (Auto) Not Reportable 10/17/19 08:20 Eos # (Auto) 100 /uL (0-450) 12/17/18 09:09 Graham # (Auto) Not Reportable 10/17/19 08:20 Baso # (Auto) Not Reportable 10/17/19 08:20 Total Counted 100 10/11/19 13:00 Seg Neutrophils % 28.0 % (38-70) L 10/11/19 13:00 Band Neutrophils % 21.0 % (3-7) H 10/11/19 13:00 Lymphocytes % (Manual) 7.0 % (25-45) L 10/11/19 13:00 Atypical Lymphs % 1.0 % (-0) H 10/11/19 13:00 Monocytes % (Manual) 18.0 % (2-11) H 10/11/19 13:00 Eosinophils % (Manual) 4.0 % (2-4) 09/19/19 11:55 Metamyelocytes % 11.0 % (-0) H 10/11/19 13:00 Myelocytes % 11.0 % (-0) H 10/11/19 13:00 Promyelocytes % 3.0 % (-0) H 10/11/19 13:00 Blast Cells % 2.0 % (-0) H 10/03/19 09:00 Neutrophils # (Manual) 55323 /uL (9165-6075) H 10/11/19 13:00 Hypersegmented Neuts 1+ 06/21/18 13:59 Nucleated RBCs 3 #/Diff (-0) H 10/11/19 13:00 Plt Morphology Comment Note: 04/26/18 14:55 Platelet Estimate Decreased on smear 10/11/19 13:00 Hypochromasia 1+ H 05/11/19 09:08 Poikilocytosis 1+ H 08/15/19 10:22 Basophilic Stippling 1+ H 08/22/19 09:04 RBC Morphology See below 10/11/19 13:00 Tear Drop Cells 1+ H 08/08/19 12:54 Polychromasia 1+ H 10/11/19 13:00 Rouleaux 2+ H 09/05/19 07:43 Anisocytosis 1+ H 10/11/19 13:00 Macrocytosis 1+ H 09/26/19 10:25 Schistocytes 1+ H 06/21/18 13:59 PT 22.2 SECONDS (10.1-12.7) H 10/03/19 09:00 INR 1.9 (0.9-1.3) H 10/03/19 09:00 Sodium 139 mmol/L (137-145) 10/03/19 09:00 Potassium 4.4 mmol/L (3.4-5.1) 10/03/19 09:00 Chloride 106 mmol/L (98-107) 10/03/19 09:00 Carbon Dioxide 24 mmol/L (22-32) 10/03/19 09:00 BUN 24 mg/dL (9-20) H 10/03/19 09:00 Creatinine 1.43 mg/dL (0.66-1.25) H 10/03/19 09:00 Estimated GFR 48.6 mL/min (>60) L 10/03/19 09:00 BUN/Creatinine Ratio 16.8 (6-22) 10/03/19 09:00 Glucose 88 mg/dL (80-110) 10/03/19 09:00 Calcium 8.5 mg/dL (8.4-10.2) 10/03/19 09:00 Ferritin 550 ng/mL (18-464) H 08/15/19 10:22 Total Bilirubin 0.4 mg/dL (0.2-1.3) 10/03/19 09:00 AST 42 IU/L (17-59) 10/03/19 09:00 ALT 28 IU/L (<50) 10/03/19 09:00 Alkaline Phosphatase 55 U/L (38-126) 10/03/19 09:00 Lactate Dehydrogenase 544 U/L (313-618) 08/12/18 08:53 Total Protein 8.2 g/dL (6.3-8.2) 10/03/19 09:00 Albumin 4.4 g/dL (3.5-5.0) 10/03/19 09:00 Globulin 3.8 g/dL (1.7-4.1) 10/03/19 09:00 Albumin/Globulin Ratio 1.2 (1.0-2.8) 10/03/19 09:00 Blood Type A Positive 09/19/19 11:55 Antibody Screen Negative 09/19/19 11:55 Crossmatch See Detail 09/19/19 11:55 Assessment and Plan (1) Myelofibrosis Overveiw: 74 year old with essential thrombocytosis, 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 He was started on hydroxyurea 500 mg every other day. Since 03/2019, patient developed progressive worsening anemia and significant thrombocytopenia. No bleeding events. Bone marrow aspiration and biopsy on 08/08/2019 showed evidence of post ET myelofibrosis. No evidence of acute myeloid leukemia. He stopped hydroxyurea on 08/22/2019. He then started Jakafi on 09/05/2019. On 10/03/2019, we stopped Jakafi due to progressive thrombocytopenia. Assessment: First of all I reviewed the lab results with the patient. Patient's white cell count continues to increase today is 40.7. Patient's hemoglobin level continues to decrease. Today hemoglobin 6.1 and hematocrit 18.5. The platelet count seemed to have stabilized. One week ago it was 32,000. Today it was 34,000. Clinically there is no bleeding events. However patient does have lot of shortness of breath and fatigue which clearly is due to the severe decreasing hemoglobin level. I will proceed with 2 units of blood transfusion. As far as the post ET thrombocytosis is concerned, patient has not heard from Dr. Andres Baltazar from [facility] regarding peripheral blood stem transplant. I have paged Dr. Baltazar for discussion of possible moving forward with a peripheral blood stem transplant. In addition patient recalled that Dr. Baltazar talked with patient about a trial involving the medication Pacritinib. I talked with the patient that as soon as I hear from Dr. Baltazar, I will inform him and move forward. Patient voiced understanding. Today I also talked about using hydroxyurea to decrease the leukocytosis. But I would wait until I hear from Dr. Andres Baltazar. Plan: 1. Continue to hold Jakafi 10 mg bid for now 2. Pending Dr. Andres Parrish's opinion regarding pacritinib 3. RTC MD in 1 week, repeat CBC (2) Anemia Overview: Macrocytic, likely related to underlying post-ET myelofibross Assessment: H/H 6.1/18.5. Clinically, he said he complains of shortness of breath and fatigue. Will proceed with 2 units of red blood cell transfusion. Plan: Transfusion threshold: H/H 01/09. pRBC 2 units today (3) Essential thrombocytosis See discussion in Myeolofibrosis above (4) Thrombocytopenia Overview: Thrombocytopenia, likely related to myelofibross Assessment: Clinically, patient denies any bleeding events. No petechia. Today the platelet counts were 34. Plan: Transfusion threshold: Platelet < 20 K or bleeding Continue CBC weekly No Platelet transfusion indicated today (5) VTE (venous thromboembolism) Overview: Acute onset of right lower extremity occlusive deep venous thrombosis as well as pulmonary embolism involving the right lung on 06/20/2019. Patient admitted to long distance driving around 2018 that could be the trigger factor. Assessment: Patient currently is taking Coumadin. No bleeding events. However, given that platelet counts have dropped to below 50, I recommend that we hold Coumadin for now until platelet counts return back to above 50. Plan : Hold Coumadin for now due to platelet count < 50K Continue follow up with Dr. Elkins for INR monitoring and Coumadin dose adjustment.
[2019-10-17 08:55] LABS: Mean Corpuscular HGB Conc 33.1 % (30-36); Mean Corpuscular Hemoglobin 30.4 PG (26-34); Mean Corpuscular Volume 91.8 fL (80-100); Red Blood Cell Count 2.02 X10^6/uL (4.5-5.9); Red Cell Distribution Width 17.1 % (11.6-14.8)
[2019-10-17 08:58] LABS: Hematocrit 18.5 % (41-53); Hemoglobin 6.1 g/dL (13.5-17.5); White Blood Cell Count 40.7 X10^3/uL (4.5-11.0)
[2019-10-17 08:59] LABS: Add Manual Diff / Slide Review YES; Platelet Count 34 X10^3/uL (150-400)
[2019-10-17 09:44] LABS: Neutrophils Absolute Manual 17094 /uL (3000-5900); Total Cells Counted 100
[2019-10-17 09:45] LABS: Anisocytosis 1+; Platelet Estimate Decreased on smear; Polychromasia 1+
[2019-10-24 11:40] LABS: Hematocrit 22.4 % (41-53); Hemoglobin 7.4 g/dL (13.5-17.5); Mean Corpuscular HGB Conc 33.1 % (30-36); Mean Corpuscular Hemoglobin 30.6 PG (26-34); Mean Corpuscular Volume 92.5 fL (80-100); Red Blood Cell Count 2.43 X10^6/uL (4.5-5.9); Red Cell Distribution Width 16.8 % (11.6-14.8)
[2019-10-24 11:43] LABS: White Blood Cell Count 35.5 X10^3/uL (4.5-11.0)
[2019-10-24 11:44] LABS: Add Manual Diff / Slide Review YES; Platelet Count 29 X10^3/uL (150-400)
[2019-10-24 12:04] LABS: Anisocytosis 2+; Neutrophils Absolute Manual 15620 /uL (3000-5900); Total Cells Counted 100
--- NOTE | 2019-10-24 12:05 | PC.NURSE ---
Dr. Barth aware of pt critical lab results. Dr. Barth would like pt to return to clinic of for CBC, pt aware and scheduled.
--- NOTE | 2019-10-24 14:57 | PC.NURSE ---
Lab results faxed [facility] as requested in order.
[2019-10-27 09:09] LABS: Hematocrit 21.6 % (41-53); Hemoglobin 7.3 g/dL (13.5-17.5); Mean Corpuscular HGB Conc 33.6 % (30-36); Mean Corpuscular Volume 92.3 fL (80-100); Red Blood Cell Count 2.34 X10^6/uL (4.5-5.9); Red Cell Distribution Width 16.3 % (11.6-14.8)
[2019-10-27 09:15] LABS: Add Manual Diff / Slide Review YES; Platelet Count 34 X10^3/uL (150-400); White Blood Cell Count 34.1 X10^3/uL (4.5-11.0)
[2019-10-27 09:32] VITALS: BP 124/64; PULSE 72; RESP 16; TEMP 36.6; O2SAT 100
[2019-10-27 09:47] LABS: Neutrophils Absolute Manual 18414 /uL (3000-5900); Total Cells Counted 100
[2019-10-27 09:49] LABS: Anisocytosis 1+; Platelet Estimate Decreased on smear
--- NOTE | 2019-10-27 11:03 | PC.NURSE ---
Dr. Barth aware of pt's critical platelets and WBC result, no new orders received r/t to these results.
[2019-10-27 18:15] VITALS: BP 123/69; PULSE 86; RESP 18; TEMP 37.4
[2019-10-27 18:30] VITALS: BP 118/71; PULSE 80; RESP 17; TEMP 37.2
[2019-10-27 20:30] VITALS: BP 114/65; PULSE 75; RESP 16; TEMP 37.2
--- NOTE | 2019-10-27 23:21 | PC.NURSE ---
Patient arrived on floor at 1745 for transfusion of PRBC arranged by [facility]cology [facility]. IV was accessed without difficulty, consent was signed and transfusion was begun at 181. Transfusion completed at 2029, IV was discontinued from LAC, bandage was secured at IV site, and patient left to go home. VSS were stable and no infusion reaction noted.
--- NOTE | 2019-11-22 09:52 | ONC.SCHED ---
while making reminder calls, Eddie stated he is at [facility] and is not sure when he'll be discharged, he will call when he can get back on Dr Barth's schedule/ I requested his inpatient records from the
== END ==
PROVIDERS: Nurse Practitioner; Nurse Practitioner Gerontology; PCP Family Medicine; Referring Provider Internal Medicine Hematology & Oncology; Visit Provider Internal Medicine Hematology & Oncology
DX: D47.1 Chronic myeloproliferative disease (principal); D47.3 Essential (hemorrhagic) thrombocythemia; D53.9 Nutritional anemia, unspecified
CPT/HCPCS: 36415; 36430; 38222; 80053; 81206; 81207; 82607; 82728; 82746; 83540; 83550; 83615; 85025; 85060; 85097; 85610; 86850; 86900; 86901; 86945; 88305; 88311; 88313; 88341; 88342; 99000; 99204; 99213; 99214; 99215; P9016; P9040